=== PATIENT | female | born 1940 | race Caucasian/White ===

== ENCOUNTER 2018-04-10 01:09 | Inpatient (IN) | payer MEDICARE, OTHER ==
[~2018-04-10] VITALS: Ht 162.6 cm; Wt 55.6 kg
--- NOTE | 2018-04-10 01:30 | ED.ADGEN ---
Past History Past Medical History: Anemia, Anxiety, Bipolar, Dementia, Depression, Hypothyroid, Other Adult General Chief Complaint Chief Complaint "..no.. NO....no.no.. leave..." HPI HPI Patient is a 77 year old female from [facility], who presents with no complaints. Pt. denies pain. [facility] staff reports she has had recent change in her behavior. Pt. normally always uncooperative and assaultive towards staff, but recently has been aggressive towards other pt.s. Pt. has extensive medical hx. bipolar disorder, gait disorder, dysphagia, frequent falls , dementia, hypothyroid, vitamin D deficiency, deconditioned, anxiety disorder, osteoporosis, cognitive defects, constipation and aggressive behavior. Patient recently has had increased episodes of cussing , yelling and throwing objects at staff and other patients. Patient has had no recent changes in meds. No specific ill exposures. Patient has been a resident of [facility] since 2017. Review of Systems Review of Systems Pt has no complaints- very poor historian Constitutional: Denies fever or chills [] Eyes: Denies change in visual acuity, redness, or eye pain [] HENT: Denies nasal congestion or sore throat [] Respiratory: Denies cough or shortness of breath [] Cardiovascular: No additional information not addressed in HPI [] GI: Denies abdominal pain, nausea, vomiting, bloody stools or diarrhea [] : Denies dysuria or hematuria [] Musculoskeletal: Denies back pain or joint pain [] Integument: Denies rash or skin lesions [] Neurologic: Denies headache, focal weakness or sensory changes [] Endocrine: Denies polyuria or polydipsia [] All other systems were reviewed and found to be within normal limits, except as documented in this note. Family History Family History Not currently available Current Medications Current Medications See Nursing for PR meds Allergies Allergies NKDA Physical Exam Physical Exam Constitutional: no acute distress, agitated in appearance. [] HENT: Normocephalic, atraumatic, bilateral external ears normal, oropharynx moist, no oral exudates, nose normal. []Poor dentition. Eyes: PERRLA, EOMI, conjunctiva normal, no discharge. [] Neck: Normal range of motion, no tenderness, supple, no stridor. [] Cardiovascular:Heart rate regular rhythm, no murmur [], PMI to Lt. Lungs & Thorax: Bilateral breath sounds equal at apex on auscultation [] Basilar crackles Abdomen: Bowel sounds normal, soft, no tenderness, no masses, no pulsatile masses. [] Distended. Skin: Warm, dry, no erythema, no rash. [] Poor turgor. Back: No tenderness, no CVA tenderness. Kyphosis, scoliosis Extremities: No tenderness, no cyanosis, no clubbing, ROM intact, no edema. [] Arthritic changes. Neurologic: Alert and oriented X 1, move all ext. no gross focal deficits noted as per [facility] staff at beside. [facility] staff at bedside, state this his her baseline for activity and alertness. Psychologic: Affect anxious, judgement obvious limited insight, mood agitated. Current Patient Data Vital Signs Vital Signs Date Time Temp Pulse Resp B/P (MAP) Pulse Ox O2 Delivery O2 Flow Rate FiO2 04/10/18 01:34 91 20 97 Room Air Lab Results Laboratory Tests Test 04/10/18 01:46 04/10/18 01:54 White Blood Count 8.4 x10^3/uL (4.0-11.0) Red Blood Count 2.96 x10^6/uL (3.50-5.40) L Hemoglobin 8.9 g/dL (12.0-15.5) L Hematocrit 27.4 % (36.0-47.0) L Mean Corpuscular Volume 93 fL (79-100) Mean Corpuscular Hemoglobin 30 pg (25-35) Mean Corpuscular Hemoglobin Concent 33 g/dL (31-37) Red Cell Distribution Width 16.9 % (11.5-14.5) H Platelet Count 535 x10^3/uL (140-400) H Neutrophils (%) (Auto) 49 % (31-73) Lymphocytes (%) (Auto) 35 % (24-48) Monocytes (%) (Auto) 11 % (0-9) H Eosinophils (%) (Auto) 4 % (0-3) H Basophils (%) (Auto) 1 % (0-3) Neutrophils # (Auto) 4.1 x10^3uL (1.8-7.7) Lymphocytes # (Auto) 3.0 x10^3/uL (1.0-4.8) Monocytes # (Auto) 0.9 x10^3/uL (0.0-1.1) Eosinophils # (Auto) 0.3 x10^3/uL (0.0-0.7) Basophils # (Auto) 0.1 x10^3/uL (0.0-0.2) Erythrocyte Sedimentation Rate 82 (0-25) H Prothrombin Time 9.6 SEC (9.4-11.4) Prothrombin Time INR 1.0 (0.9-1.1) PTT 21 SEC (23-33) L Sodium Level 145 mmol/L (136-145) Potassium Level 4.1 mmol/L (3.5-5.1) Chloride Level 107 mmol/L (98-107) Carbon Dioxide Level 22 mmol/L (21-32) Anion Gap 16 (6-14) H Blood Urea Nitrogen 33 mg/dL (7-20) H Creatinine 1.2 mg/dL (0.6-1.0) H Estimated GFR (Cockcroft-Gault) 43.3 Glucose Level 138 mg/dL (70-99) H Calcium Level 9.4 mg/dL (8.5-10.1) Magnesium Level 2.3 mg/dL (1.8-2.4) Total Bilirubin 0.1 mg/dL (0.2-1.0) L Direct Bilirubin < 0.1 mg/dL (0.0-0.2) Aspartate Amino Transferase (AST) 25 U/L (15-37) Alanine Aminotransferase (ALT) 20 U/L (14-59) Alkaline Phosphatase 102 U/L (46-116) Creatine Kinase 51 U/L (26-192) Troponin I Quantitative < 0.017 ng/mL (0-0.055) C-Reactive Protein 6.7 mg/L (0-3.3) H PC-Emn-Q-Type Natriuretic Peptide 329 pg/mL (0-449) Total Protein 7.3 g/dL (6.4-8.2) Albumin 2.9 g/dL (3.4-5.0) L Lipase 523 U/L (73-393) H Urine Collection Type U cath Urine Color Yellow Urine Clarity Clear Urine pH 5.0 Urine Specific Kermit 1.025 Urine Protein Neg (NEG-TRACE) Urine Glucose (UA) Neg mg/dL (NEG) Urine Ketones (Stick) Neg mg/dL (NEG) Urine Blood Neg (NEG) Urine Nitrite Neg (NEG) Urine Bilirubin Neg (NEG) Urine Urobilinogen Dipstick 0.2 mg/dL (0.2 mg/dL) Urine Leukocyte Esterase Neg (NEG) Urine RBC 0 /HPF (0-2) Urine WBC Occ /HPF (0-4) Urine Squamous Epithelial Cells None /LPF Urine Bacteria 0 /HPF (0-FEW) Urine Opiates Screen Neg (NEG) Urine Methadone Screen Neg (NEG) Urine Barbiturates Neg (NEG) Urine Phencyclidine Screen Neg (NEG) Urine Amphetamine/Methamphetamine Neg (NEG) Urine Benzodiazepines Screen Neg (NEG) Urine Cocaine Screen Neg (NEG) Urine Cannabinoids Screen Neg (NEG) Urine Ethyl Alcohol (NEG) EKG EKG My interpretation EKG shows a sinus rhythm at 88 bpm. There is leftward axis. Some nonspecific T changes. No findings acute STEMI with contralateral changes.[ ] Radiology/Procedures Radiology/Procedures I interpretation of chest x-ray shows degenerative joint changes. Chronic pulmonary zydvzex-qoxrcfqze-jrld changes No free air under diaphragm. Increased stool in colon.[] My interpretation of CT head shows no shift, mass, edema, bleed, or fracture. Does have obvious volume loss and white matter disease changes. 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 CT of neck shows degenerative joint changes but no obvious fracture. See formal report when available. Course & Med Decision Making Course & Med Decision Making Pertinent Labs and Imaging studies reviewed. (See chart for details) Patient admitted on the [facility] Dr. Estrada. Consult Dr. Porras- for medical issues. [] Final Impression Final Impression 1. Mental Status Change[] 2. Aggressive Behavior 3. Hx. Bipolar 4. Hx. Dementia 5. Hx. Anxiety Disorder 6. Anemia 8.9 Hgb 7. DM 138 8. Elevated BUN/Crea 33/1.2 9. Malnutrition Alb. 2.9 10. Elevated Lipase 523 11. Constipation Dragon Disclaimer Dragon Disclaimer This electronic medical record was generated, in whole or in part, using a voice recognition dictation system. JARED CARL MD Apr 10, 2018 01:30
[2018-04-10 02:31] LABS: BASO # 0.1 x10^3/uL (0.0-0.2); BASO % 1 % (0-3); EOS # 0.3 x10^3/uL (0.0-0.7); EOS % 4 % (0-3); HEMATOCRIT 27.4 % (36.0-47.0); HEMOGLOBIN 8.9 g/dL (12.0-15.5); LYMPH % 35 % (24-48); MEAN CORPUSCULAR HEMOGLOBIN 30 pg (25-35); MEAN CORPUSCULAR HGB CONC 33 g/dL (31-37); MEAN CORPUSCULAR VOLUME 93 fL (79-100); MONO # 0.9 x10^3/uL (0.0-1.1); MONO % 11 % (0-9); NEUT # 4.1 x10^3uL (1.8-7.7); NEUT % 49 % (31-73); PLATELET COUNT 535 x10^3/uL (140-400); RED BLOOD COUNT 2.96 x10^6/uL (3.50-5.40); RED CELL DISTRIBUTION WIDTH 16.9 % (11.5-14.5); WHITE BLOOD COUNT 8.4 x10^3/uL (4.0-11.0)
[2018-04-10 02:49] LABS: BACTERIA,URINE 0 /HPF (0-FEW); BILIRUBIN,URINE NEG (NEG); CLARITY,URINE CLEAR; COLOR,URINE YELLOW; GLUCOSE,URINE NEG (NEG); NITRITE,URINE NEG (NEG); RBC,URINE 0 /HPF (0-2); UROBILINOGEN,URINE 0.2 mg/dL (0.2 mg/dL); WBC,URINE OCC /HPF (0-4)
[2018-04-10 02:57] LABS: BARBITURATES NEG (NEG); BENZODIAZEPINES NEG (NEG); CANNABINOIDS NEG (NEG); COCAINE NEG (NEG); METHADONE NEG (NEG); OPIATES NEG (NEG); PHENCYCLIDINE NEG (NEG)
[2018-04-10 03:04] LABS: AMPHETAMINE/METHAMPHETAMINE NEG (NEG)
[2018-04-10 03:26] LABS: SEDIMENTATION RATE 82 (0-25)
[2018-04-10 03:28] LABS: ALBUMIN 2.9 g/dL (3.4-5.0); ALK PHOS 102 U/L (46-116); ALT (SGPT) 20 U/L (14-59); ANION GAP 16 (6-14); AST (SGOT) 25 U/L (15-37); BLOOD UREA NITROGEN 33 mg/dL (7-20); C REACTIVE PROTEIN 6.7 mg/L (0-3.3); CALCIUM 9.4 mg/dL (8.5-10.1); CARBON DIOXIDE 22 mmol/L (21-32); CHLORIDE 107 mmol/L (98-107); CREATININE 1.2 mg/dL (0.6-1.0); GFR 43.3; GLUCOSE 138 mg/dL (70-99); LIPASE 523 U/L (73-393); MAGNESIUM 2.3 mg/dL (1.8-2.4); POTASSIUM 4.1 mmol/L (3.5-5.1); SODIUM 145 mmol/L (136-145); TOTAL BILIRUBIN 0.1 mg/dL (0.2-1.0); TOTAL PROTEIN 7.3 g/dL (6.4-8.2)
[2018-04-10 03:30] LABS: DIRECT BILIRUBIN < 0.1 mg/dL (0.0-0.2)
--- NOTE | 2018-04-10 03:44 | RAD ---
Examination: CT HEAD AND CERVICAL SPINE WO History: Weakness, altered mental status, hx of falls Comparison/Correlation: None Findings: Axial images of the head and cervical spine were obtained without contrast. Sagittal and coronal reformatted images of the cervical spine were provided. Ventriculomegaly presumably due to volume loss is present. Advanced atrophy and chronic ischemic changes white matter is present. Old right basal ganglier lacunar infarct. Old right frontal lobe infarct is present. No depressed skull fracture. A right frontal bone exostosis noted vertex is present anteriorly. It is benign in appearance. Alignment of the cervical spine is unremarkable. Vertebral body heights are adequate. C4-5 disc space narrowing is moderate. Endplate spurring at C3-C4 and C4-C5 is present with mild bony encroachment on the neural foramina mainly at C3-4. No cervical spine fracture or bony destruction identified. Spinal canal is unremarkable. Soft tissues are unremarkable. Centrilobular emphysematous involvement of the partially visualized upper lung mario noted. Impression: No fracture. No intracranial hemorrhage. Electronically signed by: Tre Shah MD (04/10/2018 3:41 AM) [id number]
[2018-04-10] MEDS ORDERED: MAGNESIUM HYDROXIDE 2,400 MG/30 ML ORAL.SUSP. PO ONE (04:00)
[2018-04-10] MEDS ORDERED: METHYL SALICYLATE/MENTHOL TOPICAL OINTMENT 29GM TUBE. TP PRN (04:15)
[2018-04-10] MEDS ORDERED: MAG HYDROX/AL HYDROX/SIMETH 30 ML ORAL.SUSP PO PRN (04:15)
[2018-04-10] MEDS ORDERED: MAGNESIUM HYDROXIDE 2,400 MG/30 ML ORAL.SUSP. PO PRN (04:15)
[2018-04-10] MEDS ORDERED: ACETAMINOPHEN 325 MG TABLET PO PRN ×2 (04:15→05:00)
[2018-04-10] MEDS ORDERED: CALC-157 PO (04:37)
[2018-04-10] MEDS ORDERED: OLAN10TA9 PO (04:37)
[2018-04-10] MEDS ORDERED: DULO30CA2 PO (04:37)
[2018-04-10] MEDS ORDERED: DICL100G18 TP (04:37)
[2018-04-10] MEDS ORDERED: OLAN5TAB9 PO (04:37)
[2018-04-10] MEDS ORDERED: ACET325T9 PO ×2 (04:37)
[2018-04-10] MEDS ORDERED: ASCO500T2 PO (04:37)
[2018-04-10] MEDS ORDERED: MEMA10TA PO (04:37)
[2018-04-10] MEDS ORDERED: ASPI325T11 PO (04:37)
[2018-04-10] MEDS ORDERED: LACT10SO PO (04:37)
[2018-04-10] MEDS ORDERED: DULO60CA6 PO (04:37)
[2018-04-10] MEDS ORDERED: LEVO100T5 PO (04:37)
[2018-04-10] MEDS ORDERED: RIVA1PAT22 TD (04:37)
[2018-04-10] MEDS ORDERED: LACTULOSE 20 GM/30 ML SOLUTION. PO PRN (05:00)
[2018-04-10] MEDS ORDERED: DICLOFENAC SODIUM 1% TOPICAL GEL 100GM TUBE. TP PRN (05:00)
[2018-04-10] MEDS: LEVOTHYROXINE 100 MCG TABLET PO SCH (05:41)
--- NOTE | 2018-04-10 07:50 | RAD ---
Indication:Weakness, altered mental status, hx of falls TECHNIQUE:Portable AP chest X-ray COMPARISON:None FINDINGS: Patient is rotated to the right side limiting optimal evaluation. Heart is normal in size. Lungs are clear. No pneumothorax or pleural effusion. Visualized bony thorax is within normal limits. IMPRESSION: No acute pulmonary process. Electronically signed by: Andrea Rodriguez DO (04/10/2018 7:46 AM) [facility]
[2018-04-10] MEDS: CALCIUM CARB/VIT D3 500/200 TABLET PO SCH ×2 (08:06→17:47)
[2018-04-10] MEDS: ASPIRIN ENTERIC COATED 325 MG TABLET.DR. PO SCH (08:06)
[2018-04-10] MEDS: MEMANTINE 10 MG TABLET. PO SCH ×2 (08:09→20:01)
[2018-04-10] MEDS: ACETAMINOPHEN 325 MG TABLET PO SCH ×3 (08:09→20:01)
[2018-04-10] MEDS: RIVASTIGMINE 4.6MG PATCH. TD SCH (08:09)
[2018-04-10] MEDS: ASCORBIC ACID 500 MG TABLET PO SCH ×2 (08:09→20:01)
[2018-04-10] MEDS: OLANZapine 5 MG TABLET PO SCH (08:09)
[2018-04-10] MEDS: DULoxetine HCL 60 MG CAPSULE.DR PO SCH (08:09)
--- NOTE | 2018-04-10 09:34 | RAD ---
ACUTE ABDOMEN SERIES History: abd pain, elevated lipase. Comparison: Prior chest x-ray of 04/10/2018. No previous abdomen radiograph. Cardiac silhouette is not enlarged. No airspace consolidation. There are prominent interstitial markings throughout both lungs, appears slightly greater than on prior study but there is a difference in patient positioning. No pneumothorax. No pleural effusion. Skeletal structures are grossly intact. Abdominal detail is limited due to technique. There is no gross evidence of small bowel distention to suggest obstruction. [id number] stool in the colon and rectum. Skeletal structures are grossly intact. IMPRESSION: 1. Prominent interstitial opacities in the chest, most likely chronic fibrosis, mild acute interstitial infiltrate is not excludable. 2. Limited detail on the abdominal images, but no evidence of obstructive bowel gas pattern. Electronically signed by: Raj Robles MD (04/10/2018 9:31 AM) [facility]
[2018-04-10 10:59] VITALS: BP 154/82
--- NOTE | 2018-04-10 13:22 | RAD ---
Examination: Ultrasound abdomen complete HISTORY: History of elevated lipase COMPARISON: None available. Findings: The pancreas is not well-visualized. The pancreatic duct measures 1.8 mm in diameter. The spleen is poorly visualized. The aorta and IVC are poorly visualized due to bowel gas and as patient could not hold breath during the exam. Few gallstones identified within the gallbladder. The common bile duct measures 3.6 mm in diameter. The liver length measures 14.5 cm. The right kidney measures 8.3 cm in length. Few cysts identified in the right kidney with the largest measuring 1.7 cm The left kidney measures 9.2 cm in length. 1.2 cm cyst identified in the left kidney. IMPRESSION: 1. Cholelithiasis 2. Examination is limited as patient could not hold her breath during the scan and due to bowel gas. 3. Bilateral renal cysts. Electronically signed by: Nik Blake MD (04/10/2018 1:18 PM) [facility]
[2018-04-10 15:57] VITALS: BP 121/72
[2018-04-10] MEDS: CHOLECALCIFEROL (VITAMIN D3) 50,000 UNIT CAPSULE PO SCH (17:47)
[2018-04-10] MEDS: DULoxetine HCL 30 MG CAPSULE.DR PO SCH (20:02)
[2018-04-10] MEDS: OLANZapine 10 MG TABLET PO SCH (20:03)
--- NOTE | 2018-04-10 21:11 | CONS ---
DATE OF CONSULTATION: 04/10/2018 REASON FOR CONSULTATION: Medical management. HISTORY OF PRESENT ILLNESS: The patient is a 77-year-old female patient, a resident at [facility], who was admitted on account of scratching resident and drawing blood, yelling, hallucinating, seeing babies and children. She has been having increased agitation, has been known to throw dishes, all this in a background of bipolar disorder and dementia. She was admitted to this unit for inpatient psychiatric stabilization. PAST MEDICAL HISTORY: Significant for hypothyroidism, vitamin D deficiency, anemia as well as osteoporosis and chronic back syndrome. She has a history of recurrent falls, most recent one was last week. PAST PSYCHIATRIC HISTORY: Significant for bipolar disorder with major depressive disorder, dementia, behavioral disorder, anxiety. PAST SURGICAL HISTORY: Unremarkable. ALLERGIES: She has no known drug allergies. MEDICATIONS: She is currently on following medications: She is on rivastigmine for Exelon 4.6 mg patch transdermal daily, aspirin 325 mg once a day, diclofenac sodium for Voltaren gel 4 grams topically twice a day, Tylenol 650 mg every 4 hours, Tylenol 650 mg 3 times a day, duloxetine 30 mg at bedtime, duloxetine 60 mg at bedtime, olanzapine 10 mg at bedtime, olanzapine 5 mg p.o. daily, Namenda 10 mg p.o. b.i.d., lactulose 30 mL p.o. q. 12 hourly, calcium carbonate with vitamin D3 one tablet twice a day, levothyroxine sodium 100 mcg p.o. daily, ascorbic acid 500 mg twice a day. FAMILY HISTORY: Unremarkable. SOCIAL HISTORY: She is a resident at [facility]. She apparently does not smoke, drink alcohol or use any recreational drugs. She is on a pureed diet. She ambulates with a 1-2 person assist. PHYSICAL EXAMINATION: GENERAL: When I examined her, she was resting slightly propped up in bed, in no apparent respiratory distress. She was somewhat pale, but no jaundice, cyanosis, or thyromegaly. No jugular venous distension. No limb edema. VITAL SIGNS: Her heart rate was 101, blood pressure was 154/82, temperature was 97.6, respiratory rate was 20, and oxygen saturation was 100% on room air. HEAD, EYES, EARS, NOSE AND THROAT: Showed normocephalic, atraumatic. NECK: Supple. HEART: Showed normal first and second heart sounds with no gallop, rub or murmur. CHEST: Clear to auscultation. No crepitation or rhonchi. ABDOMEN: Distended, soft, nontender. No guarding or rigidity. No organomegaly. Hernial orifice intact. Bowel sounds normal. NEUROLOGIC: She is demented, mostly nonverbal. She does yell, scream, but all her cranial nerves are intact. EXTREMITIES: She moves her extremities to much greater extent than lower extremities. She is mostly bedbound, chair bound. She has a Radha lift. She can walk with 2-person assist. LABORATORY DATA: Her lab work showed that her white cell count was 8400, hemoglobin 8.9, hematocrit 27, MCV 93 and platelet count 535,000 with normal manual differential. Her sedimentation rate was high at 82. Retic count was 3.8. Her chemistry showed serum sodium 145, potassium 4.1, chloride 107, bicarbonate 22, anion gap of 16, BUN 33, creatinine 1.2. Estimated GFR was 43 mL per minute. Her glucose 138, calcium was 9.4, magnesium 2.3. Serum iron, TIBC and iron saturation was consistent with iron deficiency anemia. Her total bilirubin, AST, ALT, alkaline phosphatase were normal. Her C-reactive protein was 6.7. Beta natriuretic peptide was 329. Total protein was 7.3, albumin was 2.9. Serum lipase was high at 523. Her vitamin B12 was 800 and 25-hydroxyvitamin D was 17.9. Her TSH was high at 6.001. Her prothrombin time was 9.6, INR of 1, aPTT was 21. Urinalysis was essentially unremarkable. Toxic screen was negative. Her treponema pallidum antibodies were nonreactive. She did have a CT scan of the head and cervical spine, which was unremarkable. Her chest x-ray showed no acute pulmonary process. Her ultrasound of the abdomen showed that the pancreas is not well-visualized. Pancreatic duct measures 1.8 mm in diameter. The spleen is poorly visualized. The aorta and IVC are poorly visualized due to bowel gas as the patient could not hold breath during the exam. Few gallstones identified in the gallbladder, common bile duct measures 3.6 mm in diameter. The liver length measures 14.5. The right kidney measures 8.3 cm in length. Few cysts identified in the right kidney with the largest measuring 1.7. The left kidney measures 9.2 cm in length, 1.2 cm cyst identified in the left kidney. Her acute abdomen series showed interstitial opacity in the chest, most likely chronic fibrosis, mild acute interstitial infiltrate, not excluded. IMPRESSION: So, in summary, this is a 77-year-old female patient, who is a resident at [facility], who was admitted on account of scratching a resident and drawing blood, yelling, hallucinating, seeing babies and children. She has increased agitation, has been known to throw dishes, all this in a background of bipolar disorder with dementia. Medically, she seemed to have anemia that is normochromic normocytic with reactive thrombocytosis. Her serum iron was low, TIBC was high and iron saturation was low consistent with iron deficiency anemia. Her TSH was high. She has also lipase that was elevated at 523. She has vitamin D deficiency. PLAN: My plan is to start her on iron replacement, start her on 25-hydroxy vitamin D replacement. I will check her T3, T4, free T4 to make sure that the patient is compensated hypothyroidism. I will repeat also her lipase as she seemed to have pancreatitis. Thank you, Dr. Estrada, for allowing me to participate in the care of this patient. QUANG GUERRERO MD DR: HUMBERTO/mateo JOB#: [id number] / [id number]
--- NOTE | 2018-04-10 22:10 | PSYEV ---
DATE OF SERVICE: 04/10/2018 REASON FOR ADMISSION: This 77-year-old female was [facility] to [facility]. He was transferred from [address] [place] [address] at [facility]. The patient apparently was presented here with combative behaviors scratching her wrist and caused the skin tear, also constantly yelling, hallucinating seeing babies and children. The patient has been a resident at the senior [facility]. The patient currently not able to give much information, withdrawn, refusing to talk. HISTORY OF PRESENT ILLNESS: Staff reports since admission, she has been irritable, chung, delusional, paranoid, not interacting with the staff and also tends to pace a lot and also apparently she did not sleep well last night. The patient apparently has a diagnosis of bipolar disorder, also dementia. The patient has been having problems at the senior care, being delusional, and also resisted to care. The patient is also exhibiting psychotic behavior, which is not controlled with the treatment there. The patient also had falls recently. The patient also has history of chronic pain. The patient also known to throw dishes. PAST MEDICAL HISTORY: The patient has a history of hypothyroidism, vitamin D deficiency, osteoporosis, chronic pain, history of falls. The patient has no known allergies. The patient has been observed being confused since being hospitalized. CURRENT MEDICATIONS: Include olanzapine 10 mg at night, Cymbalta 30 mg at night, rivastigmine 13.3 patch daily. He is also on olanzapine 5 mg daily, Namenda 10 mg b.i.d., aspirin 325 mg daily, levothyroxine 100 mcg daily. The patient is also on Cymbalta 60 mg daily for a total dose of 90 mg daily. The patient's lab reviewed. The patient's RBC was 2.96, hemoglobin 8.9, platelet count 535, BUN 33, creatinine 1.2, glucose 138. C-reactive protein 6.7. Lipase 523. The patient had acute abdominal series which showed prominent interstitial opacities in the chest, most likely chronic fibrosis. Mild acute interstitial infiltrate is not excludable. Ultrasound impression, cholelithiasis, bilateral renal cysts. CT scan of the head was within normal limits. No intracranial hemorrhage. PSYCHOSOCIAL HISTORY: The patient is unable to give much information and we will try to get information from the family. No history of alcohol or substance abuse in the past. FAMILY HISTORY: None available. MENTAL STATUS EXAMINATION: The patient appeared to be of her stated age, casually dressed, withdrawn and poor eye contact, refusing to talk. Her behavior remained inappropriate. She is isolating herself, withdrawn from everybody, not wanting to talk to anyone. The patient is also confused and pacing. She is also a fall risk. Her speech is monotone, decreased rate and rhythm. Her affect and mood showed she is confused, delusional, paranoid, and not able to hold a conversation. The patient's mental status not tested. Apparently, she is very confused, disoriented to surroundings. The patient's judgment is impaired. Insight limited. STRENGTHS: Fairly in good health despite of recent problems. WEAKNESSES: The patient is confused, significant cognitive deficits, also delusional and paranoid and behavior problems. ADMITTING DIAGNOSES: AXIS I: 1. Dementia, most likely Alzheimer's versus vascular with behavior problems and psychosis. 2. Generalized anxiety disorder. AXIS II: None. AXIS III: Hypothyroidism, vitamin D deficiency, osteoporosis, chronic pain, history of falls. INITIAL TREATMENT PLAN: The patient will be increasing all the activities including individual therapy, group therapy, activity therapy. The patient will continue on the current medications listed above. The patient will continue to monitor vital signs and also repeat the lab work as needed because of the elevated BUN and creatinine. LENGTH OF STAY: 7-10 days. OMAR OCASIO MD DR: LEYLA/mateo JOB#: [id number] / [id number]
--- NOTE | 2018-04-10 23:05 | EKG ---
[address] [address] Test Date: 2018-04-10 Test Time: 02:07:47 Pat Name: ALBAN CUNNINGHAM Department: Room: [address] [place] [address] Gender: F Seismic Prospecting Observer: : 1940 Requested By: JARED CARL Order Number: [id number] Reading MD: Mike Gutierrez Measurements Intervals Francitas Rate: 88 P: 32 RI: 152 QRS: -7 QRSD: 70 T: -170 QT: 354 QTc: 432 Interpretive Statements SINUS RHYTHM LEFTWARD AXIS T ABNORMALITY IN ANTEROLATERAL LEADS INFEROLATERAL LEADS ABNORMAL ECG Electronically Signed On 04-14-2018 10:27:37 REFRIGERATION INSULATOR by Mike Gutierrez
[2018-04-11 05:08] VITALS: BP 117/54
[2018-04-11] MEDS: LEVOTHYROXINE 100 MCG TABLET PO SCH (05:24)
[2018-04-11] MEDS: ASCORBIC ACID 500 MG TABLET PO SCH ×2 (08:00→19:36)
[2018-04-11] MEDS: ACETAMINOPHEN 325 MG TABLET PO SCH ×3 (08:00→19:36)
[2018-04-11] MEDS: RIVASTIGMINE 4.6MG PATCH. TD SCH (08:00)
[2018-04-11] MEDS: OLANZapine 5 MG TABLET PO SCH (08:00)
[2018-04-11] MEDS: ASPIRIN ENTERIC COATED 325 MG TABLET.DR. PO SCH (08:00)
[2018-04-11] MEDS: MEMANTINE 10 MG TABLET. PO SCH ×2 (08:01→19:36)
[2018-04-11] MEDS: CALCIUM CARB/VIT D3 500/200 TABLET PO SCH ×2 (08:01→14:34)
[2018-04-11] MEDS: DULoxetine HCL 60 MG CAPSULE.DR PO SCH (08:01)
[2018-04-11 09:56] LABS: BASO # 0.1 x10^3/uL (0.0-0.2); BASO % 1 % (0-3); EOS # 0.3 x10^3/uL (0.0-0.7); EOS % 4 % (0-3); HEMATOCRIT 26.8 % (36.0-47.0); HEMOGLOBIN 8.3 g/dL (12.0-15.5); LYMPH # 2.7 x10^3/uL (1.0-4.8); LYMPH % 37 % (24-48); MEAN CORPUSCULAR HEMOGLOBIN 29 pg (25-35); MEAN CORPUSCULAR HGB CONC 31 g/dL (31-37); MEAN CORPUSCULAR VOLUME 95 fL (79-100); MONO # 0.5 x10^3/uL (0.0-1.1); MONO % 7 % (0-9); NEUT # 3.6 x10^3uL (1.8-7.7); NEUT % 51 % (31-73); PLATELET COUNT 476 x10^3/uL (140-400); RED BLOOD COUNT 2.83 x10^6/uL (3.50-5.40); RED CELL DISTRIBUTION WIDTH 16.8 % (11.5-14.5); WHITE BLOOD COUNT 7.1 x10^3/uL (4.0-11.0)
[2018-04-11 10:13] LABS: ALBUMIN 2.7 g/dL (3.4-5.0); ALBUMIN/GLOBULIN RATIO 0.6 (1.0-1.7); CALCIUM 9.2 mg/dL (8.5-10.1); GFR 53.5; TOTAL BILIRUBIN 0.2 mg/dL (0.2-1.0)
[2018-04-11 15:55] VITALS: BP 138/82
[2018-04-11] MEDS: DULoxetine HCL 30 MG CAPSULE.DR PO SCH (19:36)
[2018-04-11] MEDS: OLANZapine 10 MG TABLET PO SCH (19:36)
--- NOTE | 2018-04-11 22:16 | PN ---
DATE: 04/11/2018 SUBJECTIVE: The patient was seen today, met with the staff, chart reviewed. The patient continues to be withdrawn, anxious, periods of agitation. The patient still resistive to care, becomes combative with the staff. OBSERVATION: VITAL SIGNS: Temperature 97, blood pressure 138/82, pulse 72, respirations 18, O2 sat 96%. The patient's sleep is fair. Appetite decreased. MEDICATIONS: Reviewed. Currently on olanzapine 10 mg at night, Cymbalta 30 mg at night, Exelon patch 13.3 mg daily. She is also on olanzapine 5 mg daily, Namenda 10 mg b.i.d., Cymbalta 60 mg daily. The patient has not presented with any major behavior problems, known physical problems. The patient still unsteady, is a fall risk. ASSESSMENT: 1. Dementia, most likely Alzheimer versus vascular with behavior problems and psychosis. 2. Generalized anxiety disorder. PLAN: To continue with the treatment. OMAR OCASIO MD DR: LEYLA/mateo JOB#: [id number] / [id number]
[2018-04-12 05:39] VITALS: BP 132/77
[2018-04-12] MEDS: LEVOTHYROXINE 100 MCG TABLET PO SCH (05:51)
[2018-04-12] MEDS: ASPIRIN ENTERIC COATED 325 MG TABLET.DR. PO SCH (07:54)
[2018-04-12] MEDS: ACETAMINOPHEN 325 MG TABLET PO SCH ×3 (07:54→21:00)
[2018-04-12] MEDS: RIVASTIGMINE 4.6MG PATCH. TD SCH (07:54)
[2018-04-12] MEDS: CALCIUM CARB/VIT D3 500/200 TABLET PO SCH ×2 (07:54→14:12)
[2018-04-12] MEDS: ASCORBIC ACID 500 MG TABLET PO SCH ×2 (07:55→21:00)
[2018-04-12] MEDS: OLANZapine 5 MG TABLET PO SCH (07:55)
[2018-04-12] MEDS: DULoxetine HCL 60 MG CAPSULE.DR PO SCH (07:55)
[2018-04-12] MEDS: MEMANTINE 10 MG TABLET. PO SCH ×2 (07:55→21:00)
--- NOTE | 2018-04-12 14:17 | PN ---
DATE: 04/12/2018 SUBJECTIVE: The patient was seen today, met with the staff, chart reviewed. The patient continues to be anxious, withdrawn, periods of agitation. The patient also resistive to care. The patient is mostly noncommunicative. The patient is totally dependent on the staff for ADLs. OBSERVATION: VITAL SIGNS: Temperature 98.1, blood pressure 132/77, pulse 70, respiration 14, O2 sat 98%. Slept about 7 hours last night. The patient's lab reviewed. MEDICATIONS: Reviewed. She is currently on olanzapine 10 mg at night, Cymbalta 30 mg at night, Exelon patch 13.3 mg daily, also olanzapine 5 mg daily, Namenda 10 mg b.i.d. and Cymbalta 60 mg daily. The patient is not presenting with any major side effects from the medications. ASSESSMENT: 1. Dementia, most likely Alzheimer versus vascular with behavior problems and psychosis. 2. Generalized anxiety disorder. PLAN: To continue with the treatment. OMAR OCASIO MD DR: LEYLA/mateo JOB#: [id number] / [id number]
[2018-04-12 16:53] VITALS: BP 119/73
[2018-04-12] MEDS: OLANZapine 10 MG TABLET PO SCH (21:00)
[2018-04-12] MEDS: DULoxetine HCL 30 MG CAPSULE.DR PO SCH (21:00)
[2018-04-13] MEDS: LEVOTHYROXINE 100 MCG TABLET PO SCH (04:58)
[2018-04-13 06:04] VITALS: BP 126/60
[2018-04-13] MEDS: DULoxetine HCL 60 MG CAPSULE.DR PO SCH (09:13)
[2018-04-13] MEDS: ACETAMINOPHEN 325 MG TABLET PO SCH ×4 (09:13→20:08)
[2018-04-13] MEDS: MEMANTINE 10 MG TABLET. PO SCH ×2 (09:13→20:08)
[2018-04-13] MEDS: OLANZapine 5 MG TABLET PO SCH (09:13)
[2018-04-13] MEDS: RIVASTIGMINE 4.6MG PATCH. TD SCH (09:13)
[2018-04-13] MEDS: ASCORBIC ACID 500 MG TABLET PO SCH ×2 (09:13→20:08)
[2018-04-13] MEDS: ASPIRIN ENTERIC COATED 325 MG TABLET.DR. PO SCH (09:14)
[2018-04-13] MEDS: CALCIUM CARB/VIT D3 500/200 TABLET PO SCH ×2 (09:14→17:24)
[2018-04-13 15:49] VITALS: BP 114/50
--- NOTE | 2018-04-13 19:48 | PDOC ---
Exam Note: Adriano Note: Please also refer to the separate dictated note~for this date of service dictated separately.~Patient seen individually. Discussed the patient with Nursing staff reviewed the chart.~Reviewed interim history and current functioning. Reviewed vital signs,~Labs/ Radiology~and current medications noted below. Continue current treatment with the changes noted in the dictated addendum note Assessment: Vital Signs: Vital Signs Date Time Temp Pulse Resp B/P (MAP) Pulse Ox O2 Delivery O2 Flow Rate FiO2 04/13/18 15:49 98.1 84 20 114/50 (71) 93 04/12/18 05:39 Room Air I&O Intake and Output 04/13/18 07:00 Intake Total 580 ml Balance 580 ml Intake Oral 580 ml # Bowel Movements 2 Current Medications: Meds: Current Medications Magnesium Hydroxide (Milk Of Magnesia) 2,400 mg 1X ONCE PO ; Start 04/10/18 at 04:00; Stop 04/10/18 at 05:06; Status DC Acetaminophen (Tylenol) 650 mg PRN Q6HRS PRN PO PAIN / TEMP; Start 04/10/18 at 04:15; Status UNV Multi-Ingredient Ointment (Analgesic [place]) 1 adriana PRN QID PRN TP MUSCLE PAIN; Start 04/10/18 at 04:15 Al Hydroxide/Mg Hydroxide (Mylanta Plus Xs) 15 ml PRN AFTMEALHC PRN PO DYSPEPSIA; Start 04/10/18 at 04:15 Magnesium Hydroxide (Milk Of Magnesia) 2,400 mg PRN QHS PRN PO CONSTIPATION; Start 04/10/18 at 04:15 Acetaminophen (Tylenol) 650 mg PRN Q4HRS PRN PO PAIN / TEMP; Start 04/10/18 at 05:00 Acetaminophen (Tylenol) 650 mg TID PO Last administered on 04/13/18at 09:13; Start 04/10/18 at 09:00 Ascorbic Acid (Vitamin C) 500 mg BID PO Last administered on 04/13/18at 09:13; Start 04/10/18 at 09:00 Aspirin (Aspirin Enteric Coated) 325 mg DAILYWBKFT PO Last administered on at 09:14; Start 04/10/18 at 08:00 Calcium/Vitamin D (Oscal D 500mg/ 200uts) 1 tab BIDWMEALS PO Last administered on 04/13/18at 17:24; Start 04/10/18 at 08:00 Diclofenac Sodium (Voltaren) 4 adriana PRN BID PRN TP PAIN; Start 04/10/18 at 05: 00 Levothyroxine Sodium (Synthroid) 100 mcg DAILY06 PO Last administered on at 04:58; Start 04/10/18 at 06:00 Lactulose (Lactulose) 20 gm PRN Q12HR PRN PO CONSTIPATION; Start 04/10/18 at 05:00 Duloxetine HCl (Cymbalta) 30 mg QHS PO Last administered on 04/12/18at 21:00; Start 04/10/18 at 21:00 Duloxetine HCl (Cymbalta) 60 mg DAILY PO Last administered on 04/13/18at 09:13 ; Start 04/10/18 at 09:00 Memantine (Namenda) 10 mg BID PO Last administered on 04/13/18at 09:13; Start 04/10/18 at 09:00 Olanzapine (ZyPREXA) 5 mg DAILY PO Last administered on 04/13/18at 09:13; Start 04/10/18 at 09:00 Olanzapine (ZyPREXA) 10 mg QHS PO Last administered on 04/12/18at 21:00; Start 04/10/18 at 21:00 Rivastigmine (Exelon) 1 patch DAILY TD Last administered on 04/13/18at 09:13; Start 04/10/18 at 09:00 Vitamin D (Vitamin D3) 50,000 unit WEEKLY PO Last administered on 04/10/18at 17 :47; Start 04/10/18 at 16:00 Active Scripts Active Reported Voltaren (Diclofenac Sodium) 100 Gm Gel..gram. 4 Gm TP PRN BID PRN Vitamin C (Ascorbic Acid) 500 Mg Tablet 500 Mg PO BID Tylenol (Acetaminophen) 325 Mg Tablet 650 Mg PO TID EXELON 4.6mg/24hr (Rivastigmine) 1 Each Patch.td24 1 Patch TD DAILY Olanzapine 5 Mg Tablet 5 Mg PO DAILY Olanzapine 10 Mg Tablet 10 Mg PO QHS Namenda (Memantine Hcl) 10 Mg Tablet 10 Mg PO BID Levothyroxine Sodium 100 Mcg Tablet 100 Mcg PO DAILYAC Lactulose 10 Gm/15 Ml Solution 20 Gm PO PRN Q12HR PRN Cymbalta (Duloxetine Hcl) 60 Mg Capsule. 60 Mg PO DAILY Cymbalta (Duloxetine Hcl) 30 Mg Capsule. 30 Mg PO QHS Calcium 500 + Vit D 200 Tablet (Calcium Carbonate/Vitamin D3) 1 Each Tablet 1 Tab PO BID Aspirin Ec (Aspirin) 325 Mg Tablet. 325 Mg PO DAILY Tylenol (Acetaminophen) 325 Mg Tablet 650 Mg PO PRN Q4HRS PRN I have reviewed the current psychotropics carefully including drug interactions. Risk benefit ratio favors no change other than as noted in my dictated progress note. Diagnosis: Problems: (1) Mental status change resolved AUGIE SANCHEZ MD Apr 13, 2018 19:48
[2018-04-13] MEDS: DULoxetine HCL 30 MG CAPSULE.DR PO SCH (20:08)
[2018-04-13] MEDS: OLANZapine 10 MG TABLET PO SCH (20:08)
[2018-04-14 02:09] LABS: HEMOGLOBIN A1C 4.8 % (4.8-5.6)
[2018-04-14] MEDS: LEVOTHYROXINE 100 MCG TABLET PO SCH (04:59)
[2018-04-14 06:15] VITALS: BP 125/75
[2018-04-14] MEDS: ASCORBIC ACID 500 MG TABLET PO SCH ×2 (08:10→20:34)
[2018-04-14] MEDS: CALCIUM CARB/VIT D3 500/200 TABLET PO SCH ×2 (08:10→16:49)
[2018-04-14] MEDS: OLANZapine 5 MG TABLET PO SCH (08:10)
[2018-04-14] MEDS: ACETAMINOPHEN 325 MG TABLET PO SCH ×4 (08:10→20:34)
[2018-04-14] MEDS: MEMANTINE 10 MG TABLET. PO SCH ×2 (08:10→20:34)
[2018-04-14] MEDS: ASPIRIN ENTERIC COATED 325 MG TABLET.DR. PO SCH (08:10)
[2018-04-14] MEDS: DULoxetine HCL 60 MG CAPSULE.DR PO SCH (08:10)
[2018-04-14] MEDS: RIVASTIGMINE 4.6MG PATCH. TD SCH (08:11)
[2018-04-14 16:10] VITALS: BP 128/69
--- NOTE | 2018-04-14 19:13 | PDOC ---
Exam Note: Adriano Note: Please also refer to the separate dictated note~for this date of service dictated separately.~Patient seen individually. Discussed the patient with Nursing staff reviewed the chart.~Reviewed interim history and current functioning. Reviewed vital signs,~Labs/ Radiology~and current medications noted below. Continue current treatment with the changes noted in the dictated addendum note Assessment: Vital Signs: Vital Signs Date Time Temp Pulse Resp B/P (MAP) Pulse Ox O2 Delivery O2 Flow Rate FiO2 04/14/18 16:10 97.8 81 18 128/69 (88) 95 04/12/18 05:39 Room Air I&O Intake and Output 04/14/18 07:00 Intake Total 600 ml Balance 600 ml Intake Oral 600 ml Current Medications: Meds: Current Medications Magnesium Hydroxide (Milk Of Magnesia) 2,400 mg 1X ONCE PO ; Start 04/10/18 at 04:00; Stop 04/10/18 at 05:06; Status DC Acetaminophen (Tylenol) 650 mg PRN Q6HRS PRN PO PAIN / TEMP; Start 04/10/18 at 04:15; Status UNV Multi-Ingredient Ointment (Analgesic [place]) 1 adriana PRN QID PRN TP MUSCLE PAIN; Start 04/10/18 at 04:15 Al Hydroxide/Mg Hydroxide (Mylanta Plus Xs) 15 ml PRN AFTMEALHC PRN PO DYSPEPSIA; Start 04/10/18 at 04:15 Magnesium Hydroxide (Milk Of Magnesia) 2,400 mg PRN QHS PRN PO CONSTIPATION; Start 04/10/18 at 04:15 Acetaminophen (Tylenol) 650 mg PRN Q4HRS PRN PO PAIN / TEMP; Start 04/10/18 at 05:00 Acetaminophen (Tylenol) 650 mg TID PO Last administered on 04/14/18at 08:10; Start 04/10/18 at 09:00 Ascorbic Acid (Vitamin C) 500 mg BID PO Last administered on 04/14/18at 08:10; Start 04/10/18 at 09:00 Aspirin (Aspirin Enteric Coated) 325 mg DAILYWBKFT PO Last administered on at 08:10; Start 04/10/18 at 08:00 Calcium/Vitamin D (Oscal D 500mg/ 200uts) 1 tab BIDWMEALS PO Last administered on 04/14/18at 16:49; Start 04/10/18 at 08:00 Diclofenac Sodium (Voltaren) 4 adriana PRN BID PRN TP PAIN; Start 04/10/18 at 05: 00 Levothyroxine Sodium (Synthroid) 100 mcg DAILY06 PO Last administered on at 04:59; Start 04/10/18 at 06:00 Lactulose (Lactulose) 20 gm PRN Q12HR PRN PO CONSTIPATION; Start 04/10/18 at 05:00 Duloxetine HCl (Cymbalta) 30 mg QHS PO Last administered on 04/13/18at 20:08; Start 04/10/18 at 21:00 Duloxetine HCl (Cymbalta) 60 mg DAILY PO Last administered on 04/14/18at 08:10 ; Start 04/10/18 at 09:00 Memantine (Namenda) 10 mg BID PO Last administered on 04/14/18at 08:10; Start 04/10/18 at 09:00 Olanzapine (ZyPREXA) 5 mg DAILY PO Last administered on 04/14/18at 08:10; Start 04/10/18 at 09:00; Stop 04/14/18 at 16:40; Status DC Olanzapine (ZyPREXA) 10 mg QHS PO Last administered on 04/13/18at 20:08; Start 04/10/18 at 21:00; Stop 04/14/18 at 16:40; Status DC Rivastigmine (Exelon) 1 patch DAILY TD Last administered on 04/14/18at 08:11; Start 04/10/18 at 09:00 Vitamin D (Vitamin D3) 50,000 unit WEEKLY PO Last administered on 04/10/18at 17 :47; Start 04/10/18 at 16:00 Quetiapine Fumarate (SEROquel) 25 mg BIDWBK/ PO ; Start 04/15/18 at 08:00 Active Scripts Active Reported Voltaren (Diclofenac Sodium) 100 Gm Gel..gram. 4 Gm TP PRN BID PRN Vitamin C (Ascorbic Acid) 500 Mg Tablet 500 Mg PO BID Tylenol (Acetaminophen) 325 Mg Tablet 650 Mg PO TID EXELON 4.6mg/24hr (Rivastigmine) 1 Each Patch.td24 1 Patch TD DAILY Olanzapine 5 Mg Tablet 5 Mg PO DAILY Olanzapine 10 Mg Tablet 10 Mg PO QHS Namenda (Memantine Hcl) 10 Mg Tablet 10 Mg PO BID Levothyroxine Sodium 100 Mcg Tablet 100 Mcg PO DAILYAC Lactulose 10 Gm/15 Ml Solution 20 Gm PO PRN Q12HR PRN Cymbalta (Duloxetine Hcl) 60 Mg Capsule. 60 Mg PO DAILY Cymbalta (Duloxetine Hcl) 30 Mg Capsule. 30 Mg PO QHS Calcium 500 + Vit D 200 Tablet (Calcium Carbonate/Vitamin D3) 1 Each Tablet 1 Tab PO BID Aspirin Ec (Aspirin) 325 Mg Tablet.dr 325 Mg PO DAILY Tylenol (Acetaminophen) 325 Mg Tablet 650 Mg PO PRN Q4HRS PRN I have reviewed the current psychotropics carefully including drug interactions. Risk benefit ratio favors no change other than as noted in my dictated progress note. Diagnosis: Problems: (1) Mental status change resolved AUGIE SANCHEZ MD Apr 14, 2018 19:13
[2018-04-14] MEDS: DULoxetine HCL 30 MG CAPSULE.DR PO SCH (20:33)
--- NOTE | 2018-04-14 21:41 | PN ---
DATE: 04/13/2018 PSYCHIATRIC PROGRESS NOTE This late entry 04/13/2018 covers elements not covered in my initial note. SUBJECTIVE: I met with the patient in the evening. The patient slept 6 hours previous night. Also discussed with Dr. Norris who had covered for me over the past 1 week or so. She was not aggressive the previous night, extremely disorganized, rambling in his speech, oriented x 1. Ambulation impaired, in Broda. REVIEW OF SYSTEMS: No CV, , pulmonary, eye, ENT system symptoms on review. Reliability poor. MENTAL STATUS EXAM: Oriented to herself. Insight, judgment, recent, and remote memory, attention, concentration, fund of knowledge poor, consistent with her diagnosis. IMPRESSION: Major neurocognitive disorder, Alzheimer, vascular with delusion, depression, behavioral disturbance; anxiety disorder, unspecified; impulse control disorder, unspecified. Rest unchanged. PLAN: Continue psychotropics from initial note. She is on Zyprexa 5 mg a.m. and 10 at bedtime, Cymbalta 90 mg a day, Exelon patch 4.6 mg a day, Namenda 10 b.i.d., May consider changing Zyprexa to Seroquel, but I would like to assess her another day before deciding. AUGIE SANCHEZ MD DR: JESUS/mateo JOB#: [id number] / [id number]
[2018-04-15] MEDS: LEVOTHYROXINE 100 MCG TABLET PO SCH (05:41)
[2018-04-15 05:48] VITALS: BP 116/75
[2018-04-15 06:17] LABS: BASO # 0.1 x10^3/uL (0.0-0.2); BASO % 1 % (0-3); EOS # 0.3 x10^3/uL (0.0-0.7); EOS % 3 % (0-3); HEMOGLOBIN 8.4 g/dL (12.0-15.5); LYMPH # 2.5 x10^3/uL (1.0-4.8); LYMPH % 30 % (24-48); MEAN CORPUSCULAR HEMOGLOBIN 29 pg (25-35); MEAN CORPUSCULAR HGB CONC 31 g/dL (31-37); MEAN CORPUSCULAR VOLUME 94 fL (79-100); MONO # 0.8 x10^3/uL (0.0-1.1); MONO % 10 % (0-9); NEUT # 4.8 x10^3uL (1.8-7.7); NEUT % 57 % (31-73); PLATELET COUNT 432 x10^3/uL (140-400); RED BLOOD COUNT 2.87 x10^6/uL (3.50-5.40); RED CELL DISTRIBUTION WIDTH 16.5 % (11.5-14.5); WHITE BLOOD COUNT 8.5 x10^3/uL (4.0-11.0)
[2018-04-15 06:32] LABS: ALBUMIN 2.8 g/dL (3.4-5.0); ALBUMIN/GLOBULIN RATIO 0.7 (1.0-1.7); CALCIUM 9.5 mg/dL (8.5-10.1); GFR 53.5; POTASSIUM 4.3 mmol/L (3.5-5.1); TOTAL BILIRUBIN 0.2 mg/dL (0.2-1.0)
[2018-04-15] MEDS: ACETAMINOPHEN 325 MG TABLET PO SCH ×3 (07:41→19:40)
[2018-04-15] MEDS: ASPIRIN ENTERIC COATED 325 MG TABLET.DR. PO SCH (07:41)
[2018-04-15] MEDS: RIVASTIGMINE 4.6MG PATCH. TD SCH (07:41)
[2018-04-15] MEDS: CALCIUM CARB/VIT D3 500/200 TABLET PO SCH ×2 (07:41→17:42)
[2018-04-15] MEDS: MEMANTINE 10 MG TABLET. PO SCH ×2 (07:41→19:39)
[2018-04-15] MEDS: DULoxetine HCL 60 MG CAPSULE.DR PO SCH (07:41)
[2018-04-15] MEDS: ASCORBIC ACID 500 MG TABLET PO SCH ×2 (07:41→19:39)
[2018-04-15] MEDS: QUEtiapine 25 MG TABLET. PO SCH ×2 (07:42→11:55)
[2018-04-15 15:59] VITALS: BP 126/78
[2018-04-15] MEDS: DULoxetine HCL 30 MG CAPSULE.DR PO SCH (19:39)
--- NOTE | 2018-04-15 19:43 | PDOC ---
Exam Note: Adriano Note: Please also refer to the separate dictated note~for this date of service dictated separately.~Patient seen individually. Discussed the patient with Nursing staff reviewed the chart.~Reviewed interim history and current functioning. Reviewed vital signs,~Labs/ Radiology~and current medications noted below. Continue current treatment with the changes noted in the dictated addendum note Assessment: Vital Signs: Vital Signs Date Time Temp Pulse Resp B/P (MAP) Pulse Ox O2 Delivery O2 Flow Rate FiO2 04/15/18 15:59 98.1 86 18 126/78 (94) 98 04/12/18 05:39 Room Air I&O Intake and Output 04/15/18 07:00 Intake Total 820 ml Balance 820 ml Intake Oral 820 ml # Bowel Movements 1 Labs: Laboratory Tests Test 04/15/18 06:02 White Blood Count 8.5 x10^3/uL (4.0-11.0) Red Blood Count 2.87 x10^6/uL (3.50-5.40) L Hemoglobin 8.4 g/dL (12.0-15.5) L Hematocrit 27.0 % (36.0-47.0) L Mean Corpuscular Volume 94 fL (79-100) Mean Corpuscular Hemoglobin 29 pg (25-35) Mean Corpuscular Hemoglobin Concent 31 g/dL (31-37) Red Cell Distribution Width 16.5 % (11.5-14.5) H Platelet Count 432 x10^3/uL (140-400) H Neutrophils (%) (Auto) 57 % (31-73) Lymphocytes (%) (Auto) 30 % (24-48) Monocytes (%) (Auto) 10 % (0-9) H Eosinophils (%) (Auto) 3 % (0-3) Basophils (%) (Auto) 1 % (0-3) Neutrophils # (Auto) 4.8 x10^3uL (1.8-7.7) Lymphocytes # (Auto) 2.5 x10^3/uL (1.0-4.8) Monocytes # (Auto) 0.8 x10^3/uL (0.0-1.1) Eosinophils # (Auto) 0.3 x10^3/uL (0.0-0.7) Basophils # (Auto) 0.1 x10^3/uL (0.0-0.2) Sodium Level 150 mmol/L (136-145) H Potassium Level 4.3 mmol/L (3.5-5.1) Chloride Level 113 mmol/L (98-107) H Carbon Dioxide Level 28 mmol/L (21-32) Anion Gap 9 (6-14) Blood Urea Nitrogen 32 mg/dL (7-20) H Creatinine 1.0 mg/dL (0.6-1.0) Estimated GFR (Cockcroft-Gault) 53.5 BUN/Creatinine Ratio 32 (6-20) H Glucose Level 95 mg/dL (70-99) Calcium Level 9.5 mg/dL (8.5-10.1) Total Bilirubin 0.2 mg/dL (0.2-1.0) Aspartate Amino Transferase (AST) 15 U/L (15-37) Alanine Aminotransferase (ALT) 14 U/L (14-59) Alkaline Phosphatase 79 U/L (46-116) Total Protein 7.0 g/dL (6.4-8.2) Albumin 2.8 g/dL (3.4-5.0) L Albumin/Globulin Ratio 0.7 (1.0-1.7) L Current Medications: Meds: Current Medications Magnesium Hydroxide (Milk Of Magnesia) 2,400 mg 1X ONCE PO ; Start 04/10/18 at 04:00; Stop 04/10/18 at 05:06; Status DC Acetaminophen (Tylenol) 650 mg PRN Q6HRS PRN PO PAIN / TEMP; Start 04/10/18 at 04:15; Status UNV Multi-Ingredient Ointment (Analgesic [place]) 1 adriana PRN QID PRN TP MUSCLE PAIN; Start 04/10/18 at 04:15 Al Hydroxide/Mg Hydroxide (Mylanta Plus Xs) 15 ml PRN AFTMEALHC PRN PO DYSPEPSIA; Start 04/10/18 at 04:15 Magnesium Hydroxide (Milk Of Magnesia) 2,400 mg PRN QHS PRN PO CONSTIPATION; Start 04/10/18 at 04:15 Acetaminophen (Tylenol) 650 mg PRN Q4HRS PRN PO PAIN / TEMP; Start 04/10/18 at 05:00 Acetaminophen (Tylenol) 650 mg TID PO Last administered on 04/15/18at 15:04; Start 04/10/18 at 09:00 Ascorbic Acid (Vitamin C) 500 mg BID PO Last administered on 04/15/18at 07:41; Start 04/10/18 at 09:00 Aspirin (Aspirin Enteric Coated) 325 mg DAILYWBKFT PO Last administered on at 07:41; Start 04/10/18 at 08:00 Calcium/Vitamin D (Oscal D 500mg/ 200uts) 1 tab BIDWMEALS PO Last administered on 04/15/18at 17:42; Start 04/10/18 at 08:00 Diclofenac Sodium (Voltaren) 4 adriana PRN BID PRN TP PAIN; Start 04/10/18 at 05: 00 Levothyroxine Sodium (Synthroid) 100 mcg DAILY06 PO Last administered on at 05:41; Start 04/10/18 at 06:00 Lactulose (Lactulose) 20 gm PRN Q12HR PRN PO CONSTIPATION; Start 04/10/18 at 05:00 Duloxetine HCl (Cymbalta) 30 mg QHS PO Last administered on 04/14/18at 20:33; Start 04/10/18 at 21:00 Duloxetine HCl (Cymbalta) 60 mg DAILY PO Last administered on 04/15/18at 07:41 ; Start 04/10/18 at 09:00 Memantine (Namenda) 10 mg BID PO Last administered on 04/15/18at 07:41; Start 04/10/18 at 09:00 Olanzapine (ZyPREXA) 5 mg DAILY PO Last administered on 04/14/18at 08:10; Start 04/10/18 at 09:00; Stop 04/14/18 at 16:40; Status DC Olanzapine (ZyPREXA) 10 mg QHS PO Last administered on 04/13/18at 20:08; Start 04/10/18 at 21:00; Stop 04/14/18 at 16:40; Status DC Rivastigmine (Exelon) 1 patch DAILY TD Last administered on 04/15/18at 07:41; Start 04/10/18 at 09:00 Vitamin D (Vitamin D3) 50,000 unit WEEKLY PO Last administered on 04/10/18at 17 :47; Start 04/10/18 at 16:00 Quetiapine Fumarate (SEROquel) 25 mg BIDWBKFT/TERENCE PO Last administered on 04/15at 11:55; Start 04/15/18 at 08:00 Active Scripts Active Reported Voltaren (Diclofenac Sodium) 100 Gm Gel..gram. 4 Gm TP PRN BID PRN Vitamin C (Ascorbic Acid) 500 Mg Tablet 500 Mg PO BID Tylenol (Acetaminophen) 325 Mg Tablet 650 Mg PO TID EXELON 4.6mg/24hr (Rivastigmine) 1 Each Patch.td24 1 Patch TD DAILY Olanzapine 5 Mg Tablet 5 Mg PO DAILY Olanzapine 10 Mg Tablet 10 Mg PO QHS Namenda (Memantine Hcl) 10 Mg Tablet 10 Mg PO BID Levothyroxine Sodium 100 Mcg Tablet 100 Mcg PO DAILYAC Lactulose 10 Gm/15 Ml Solution 20 Gm PO PRN Q12HR PRN Cymbalta (Duloxetine Hcl) 60 Mg Capsule. 60 Mg PO DAILY Cymbalta (Duloxetine Hcl) 30 Mg Capsule. 30 Mg PO QHS Calcium 500 + Vit D 200 Tablet (Calcium Carbonate/Vitamin D3) 1 Each Tablet 1 Tab PO BID Aspirin Ec (Aspirin) 325 Mg Tablet. 325 Mg PO DAILY Tylenol (Acetaminophen) 325 Mg Tablet 650 Mg PO PRN Q4HRS PRN I have reviewed the current psychotropics carefully including drug interactions. Risk benefit ratio favors no change other than as noted in my dictated progress note. Diagnosis: Problems: (1) Alzheimer's dementia (2) Confusion (3) Depression (4) Vascular dementia with delusions (5) Mental status change resolved AUGIE SANCHEZ MD Apr 15, 2018 19:43
--- NOTE | 2018-04-15 21:01 | PN ---
DATE: 04/14/2018 PSYCHIATRIC PROGRESS NOTE This late entry 04/14/2018 covers elements not covered in my initial note. SUBJECTIVE: I met with the patient in the evening. The patient slept 6-1/2 hours previous evening. She remains somewhat restless, anxious, remains in a Broda chair. Speech is word salad. When I questioned her, she thought the year was 2018, but able to say that the month is March. Denied active hallucinations. The family is inquiring about her progress and whether she would be able to return home from here. I would need placement. She was at [facility] and probably she will need a more structured placement depending on her progress. REVIEW OF SYSTEMS: No CV, , pulmonary, eye, ENT system symptoms on review. I met with her in her room. MENTAL STATUS EXAM: Oriented to herself and situation. Speech coherent, rapid at times. Abstraction fair, computation impaired, language function intact, attention span short. Mood and affect remain somewhat labile. LABORATORY DATA: Reviewed. IMPRESSION: Bipolar 1 disorder, mixed with psychotic features; anxiety disorder, unspecified; major neurocognitive disorder, Alzheimer, vascular with delusions. PLAN: We will change the patient's Zyprexa total 15 mg a day to Seroquel initially 25 mg a.m. and noon, but we may need Risperdal as a high potency atypical antipsychotic. Continue Cymbalta for now, which is 90 mg a day, Exelon patch, Namenda, but we may well need the addition of a mood stabilizer, perhaps Depakote. We will make a decision depending on how she does with the initial changes. AUGIE SANCHEZ MD DR: JESUS/mateo JOB#: [id number] / [id number]
[2018-04-16 05:36] VITALS: BP 127/84
[2018-04-16] MEDS: LEVOTHYROXINE 100 MCG TABLET PO SCH (06:11)
[2018-04-16] MEDS: CALCIUM CARB/VIT D3 500/200 TABLET PO SCH ×2 (07:54→16:47)
[2018-04-16] MEDS: RIVASTIGMINE 4.6MG PATCH. TD SCH (07:54)
[2018-04-16] MEDS: DULoxetine HCL 60 MG CAPSULE.DR PO SCH ×2 (07:54→20:58)
[2018-04-16] MEDS: ASPIRIN ENTERIC COATED 325 MG TABLET.DR. PO SCH (07:54)
[2018-04-16] MEDS: MEMANTINE 10 MG TABLET. PO SCH ×2 (07:54→20:56)
[2018-04-16] MEDS: ASCORBIC ACID 500 MG TABLET PO SCH ×2 (07:54→20:56)
[2018-04-16] MEDS: QUEtiapine 25 MG TABLET. PO SCH ×2 (07:54→11:54)
[2018-04-16] MEDS: ACETAMINOPHEN 325 MG TABLET PO SCH ×3 (07:54→20:56)
[2018-04-16 15:32] VITALS: BP 119/76
--- NOTE | 2018-04-16 22:53 | PDOC ---
Exam Note: Adriano Note: Please also refer to the separate dictated note~for this date of service dictated separately.~Patient seen individually. Discussed the patient with Nursing staff reviewed the chart.~Reviewed interim history and current functioning. Reviewed vital signs,~Labs/ Radiology~and current medications noted below. Continue current treatment with the changes noted in the dictated addendum note Assessment: Vital Signs: Vital Signs Date Time Temp Pulse Resp B/P (MAP) Pulse Ox O2 Delivery O2 Flow Rate FiO2 04/16/18 15:32 98.1 87 16 119/76 (90) 99 Room Air I&O Intake and Output 04/16/18 07:01 Intake Total 720 ml Balance 720 ml Intake Oral 720 ml # Bowel Movements 1 Current Medications: Meds: Current Medications Magnesium Hydroxide (Milk Of Magnesia) 2,400 mg 1X ONCE PO ; Start 04/10/18 at 04:00; Stop 04/10/18 at 05:06; Status DC Acetaminophen (Tylenol) 650 mg PRN Q6HRS PRN PO PAIN / TEMP; Start 04/10/18 at 04:15; Status UNV Multi-Ingredient Ointment (Analgesic [place]) 1 adriana PRN QID PRN TP MUSCLE PAIN; Start 04/10/18 at 04:15 Al Hydroxide/Mg Hydroxide (Mylanta Plus Xs) 15 ml PRN AFTMEALHC PRN PO DYSPEPSIA; Start 04/10/18 at 04:15 Magnesium Hydroxide (Milk Of Magnesia) 2,400 mg PRN QHS PRN PO CONSTIPATION; Start 04/10/18 at 04:15 Acetaminophen (Tylenol) 650 mg PRN Q4HRS PRN PO PAIN / TEMP; Start 04/10/18 at 05:00 Acetaminophen (Tylenol) 650 mg TID PO Last administered on 04/16/18at 20:56; Start 04/10/18 at 09:00 Ascorbic Acid (Vitamin C) 500 mg BID PO Last administered on 04/16/18at 20:56; Start 04/10/18 at 09:00 Aspirin (Aspirin Enteric Coated) 325 mg DAILYWBKFT PO Last administered on at 07:54; Start 04/10/18 at 08:00 Calcium/Vitamin D (Oscal D 500mg/ 200uts) 1 tab BIDWMEALS PO Last administered on 04/16/18at 16:47; Start 04/10/18 at 08:00 Diclofenac Sodium (Voltaren) 4 adriana PRN BID PRN TP PAIN; Start 04/10/18 at 05: 00 Levothyroxine Sodium (Synthroid) 100 mcg DAILY06 PO Last administered on at 06:11; Start 04/10/18 at 06:00 Lactulose (Lactulose) 20 gm PRN Q12HR PRN PO CONSTIPATION; Start 04/10/18 at 05:00 Duloxetine HCl (Cymbalta) 30 mg QHS PO Last administered on 04/15/18at 19:39; Start 04/10/18 at 21:00; Stop 04/16/18 at 11:14; Status DC Duloxetine HCl (Cymbalta) 60 mg DAILY PO Last administered on 04/16/18at 07:54 ; Start 04/10/18 at 09:00; Stop 04/16/18 at 11:14; Status DC Memantine (Namenda) 10 mg BID PO Last administered on 04/16/18at 20:56; Start 04/10/18 at 09:00 Olanzapine (ZyPREXA) 5 mg DAILY PO Last administered on 04/14/18at 08:10; Start 04/10/18 at 09:00; Stop 04/14/18 at 16:40; Status DC Olanzapine (ZyPREXA) 10 mg QHS PO Last administered on 04/13/18at 20:08; Start 04/10/18 at 21:00; Stop 04/14/18 at 16:40; Status DC Rivastigmine (Exelon) 1 patch DAILY TD Last administered on 04/16/18at 07:54; Start 04/10/18 at 09:00; Stop 04/16/18 at 11:15; Status DC Vitamin D (Vitamin D3) 50,000 unit WEEKLY PO Last administered on 04/10/18at 17 :47; Start 04/10/18 at 16:00 Quetiapine Fumarate (SEROquel) 25 mg BIDWBK/ PO Last administered on 04/16at 11:54; Start 04/15/18 at 08:00 Duloxetine HCl (Cymbalta) 60 mg HS PO Last administered on 04/16/18at 20:58; Start 04/16/18 at 21:00 Rivastigmine (Exelon) 1 patch DAILY TD ; Start 04/17/18 at 09:00 Active Scripts Active Reported Voltaren (Diclofenac Sodium) 100 Gm Gel..gram. 4 Gm TP PRN BID PRN Vitamin C (Ascorbic Acid) 500 Mg Tablet 500 Mg PO BID Tylenol (Acetaminophen) 325 Mg Tablet 650 Mg PO TID EXELON 4.6mg/24hr (Rivastigmine) 1 Each Patch.td24 1 Patch TD DAILY Olanzapine 5 Mg Tablet 5 Mg PO DAILY Olanzapine 10 Mg Tablet 10 Mg PO QHS Namenda (Memantine Hcl) 10 Mg Tablet 10 Mg PO BID Levothyroxine Sodium 100 Mcg Tablet 100 Mcg PO DAILYAC Lactulose 10 Gm/15 Ml Solution 20 Gm PO PRN Q12HR PRN Cymbalta (Duloxetine Hcl) 60 Mg Capsule. 60 Mg PO DAILY Cymbalta (Duloxetine Hcl) 30 Mg Capsule. 30 Mg PO QHS Calcium 500 + Vit D 200 Tablet (Calcium Carbonate/Vitamin D3) 1 Each Tablet 1 Tab PO BID Aspirin Ec (Aspirin) 325 Mg Tablet. 325 Mg PO DAILY Tylenol (Acetaminophen) 325 Mg Tablet 650 Mg PO PRN Q4HRS PRN I have reviewed the current psychotropics carefully including drug interactions. Risk benefit ratio favors no change other than as noted in my dictated progress note. Diagnosis: Problems: (1) Mental status change resolved (2) Confusion (3) Depression (4) Vascular dementia with delusions (5) Alzheimer's dementia AUGIE SANCHEZ MD Apr 16, 2018 22:53
[2018-04-17] MEDS: LEVOTHYROXINE 100 MCG TABLET PO SCH (05:40)
[2018-04-17 06:24] VITALS: BP 130/80
[2018-04-17] MEDS: MEMANTINE 10 MG TABLET. PO SCH ×2 (10:09→20:09)
[2018-04-17] MEDS: ACETAMINOPHEN 325 MG TABLET PO SCH ×3 (10:09→20:09)
[2018-04-17] MEDS: CALCIUM CARB/VIT D3 500/200 TABLET PO SCH ×2 (10:09→17:42)
[2018-04-17] MEDS: ASCORBIC ACID 500 MG TABLET PO SCH ×2 (10:09→20:09)
[2018-04-17] MEDS: CHOLECALCIFEROL (VITAMIN D3) 50,000 UNIT CAPSULE PO SCH (10:09)
[2018-04-17] MEDS: QUEtiapine 25 MG TABLET. PO SCH ×2 (10:10→13:35)
[2018-04-17] MEDS: ASPIRIN ENTERIC COATED 325 MG TABLET.DR. PO SCH (10:10)
[2018-04-17] MEDS: RIVASTIGMINE 9.5MG PATCH. TD SCH (10:25)
[2018-04-17 15:21] VITALS: BP 93/52
[2018-04-17] MEDS: DULoxetine HCL 60 MG CAPSULE.DR PO SCH (20:09)
--- NOTE | 2018-04-17 20:11 | PN ---
DATE: 04/15/2018 PSYCHIATRIC PROGRESS NOTE This late entry 04/15/2018 covers elements not covered in my initial note. SUBJECTIVE: I met with the patient in the evening. The patient remains confused, remains in a Broda chair, restless, slightly more verbal, less reaching out and grabbing at things, but speech is word salad. REVIEW OF SYSTEMS: No CV, , pulmonary, eye, ENT system symptoms on review. Gait unsteady, in Broda chair. Reliability poor. MENTAL STATUS EXAM: Oriented to herself. Insight, judgment, recent and remote memory, attention, concentration, fund of knowledge poor, consistent with her diagnosis mentioned in my initial note. PLAN: No change from initial note. MAN Alva SANCHEZ MD DR: JESUS/mateo JOB#: [id number] / [id number]
--- NOTE | 2018-04-17 20:14 | PN ---
DATE: 04/16/2018 PSYCHIATRIC PROGRESS NOTE This late entry 04/16/2018 covers elements not covered in my initial note. SUBJECTIVE: I met with the patient in the evening. The patient slept reasonably the previous night. She has been less psychotic, per nursing report, less hyperverbal. She does have some dehydration and dysphagia. REVIEW OF SYSTEMS: Ambulation impaired, in Broda chair. No CV, , pulmonary, eye, ENT system symptoms on review. MENTAL STATUS EXAM: Oriented to herself. Insight, judgment, recent and remote memory, attention, concentration, fund of knowledge poor, consistent with her diagnosis. LABORATORY DATA: Reviewed. IMPRESSION: Major neurocognitive disorder, Alzheimer, vascular with delusion, depression, behavioral disturbance; bipolar 1 disorder, mixed with psychotic features. PLAN: Reduce Cymbalta from 90 mg a day down to 60 mg a day, which would be more reasonable for her age and increase Exelon patch from 4.6 up to 9.5 mg a day. Continue Seroquel unchanged together with Namenda for now. MAN Alva SANCHEZ MD DR: JESUS/mateo JOB#: [id number] / [id number]
--- NOTE | 2018-04-17 22:41 | PDOC ---
Exam Note: Adriano Note: Please also refer to the separate dictated note~for this date of service dictated separately.~Patient seen individually. Discussed the patient with Nursing staff reviewed the chart.~Reviewed interim history and current functioning. Reviewed vital signs,~Labs/ Radiology~and current medications noted below. Continue current treatment with the changes noted in the dictated addendum note Assessment: Vital Signs: Vital Signs Date Time Temp Pulse Resp B/P (MAP) Pulse Ox O2 Delivery O2 Flow Rate FiO2 04/17/18 15:21 98.4 94 18 93/52 (66) 94 04/17/18 06:24 Room Air I&O Intake and Output 04/17/18 07:01 Intake Total 960 ml Balance 960 ml Intake Oral 960 ml # Voids 2 Current Medications: Meds: Current Medications Magnesium Hydroxide (Milk Of Magnesia) 2,400 mg 1X ONCE PO ; Start 04/10/18 at 04:00; Stop 04/10/18 at 05:06; Status DC Acetaminophen (Tylenol) 650 mg PRN Q6HRS PRN PO PAIN / TEMP; Start 04/10/18 at 04:15; Status UNV Multi-Ingredient Ointment (Analgesic Eldred) 1 adriana PRN QID PRN TP MUSCLE PAIN; Start 04/10/18 at 04:15 Al Hydroxide/Mg Hydroxide (Mylanta Plus Xs) 15 ml PRN AFTMEALHC PRN PO DYSPEPSIA; Start 04/10/18 at 04:15 Magnesium Hydroxide (Milk Of Magnesia) 2,400 mg PRN QHS PRN PO CONSTIPATION; Start 04/10/18 at 04:15 Acetaminophen (Tylenol) 650 mg PRN Q4HRS PRN PO PAIN / TEMP; Start 04/10/18 at 05:00 Acetaminophen (Tylenol) 650 mg TID PO Last administered on 04/17/18at 20:09; Start 04/10/18 at 09:00 Ascorbic Acid (Vitamin C) 500 mg BID PO Last administered on 04/17/18at 20:09; Start 04/10/18 at 09:00 Aspirin (Aspirin Enteric Coated) 325 mg DAILYWBKFT PO Last administered on at 10:10; Start 04/10/18 at 08:00 Calcium/Vitamin D (Oscal D 500mg/ 200uts) 1 tab BIDWMEALS PO Last administered on 04/17/18at 17:42; Start 04/10/18 at 08:00 Diclofenac Sodium (Voltaren) 4 adriana PRN BID PRN TP PAIN; Start 04/10/18 at 05: 00 Levothyroxine Sodium (Synthroid) 100 mcg DAILY06 PO Last administered on at 05:40; Start 04/10/18 at 06:00 Lactulose (Lactulose) 20 gm PRN Q12HR PRN PO CONSTIPATION; Start 04/10/18 at 05:00 Duloxetine HCl (Cymbalta) 30 mg QHS PO Last administered on 04/15/18at 19:39; Start 04/10/18 at 21:00; Stop 04/16/18 at 11:14; Status DC Duloxetine HCl (Cymbalta) 60 mg DAILY PO Last administered on 04/16/18at 07:54 ; Start 04/10/18 at 09:00; Stop 04/16/18 at 11:14; Status DC Memantine (Namenda) 10 mg BID PO Last administered on 04/17/18at 20:09; Start 04/10/18 at 09:00 Olanzapine (ZyPREXA) 5 mg DAILY PO Last administered on 04/14/18at 08:10; Start 04/10/18 at 09:00; Stop 04/14/18 at 16:40; Status DC Olanzapine (ZyPREXA) 10 mg QHS PO Last administered on 04/13/18at 20:08; Start 04/10/18 at 21:00; Stop 04/14/18 at 16:40; Status DC Rivastigmine (Exelon) 1 patch DAILY TD Last administered on 04/16/18at 07:54; Start 04/10/18 at 09:00; Stop 04/16/18 at 11:15; Status DC Vitamin D (Vitamin D3) 50,000 unit WEEKLY PO Last administered on 04/17/18at 10 :09; Start 04/10/18 at 16:00 Quetiapine Fumarate (SEROquel) 25 mg BIDWBKFT/TERENCE PO Last administered on 04/17at 13:35; Start 04/15/18 at 08:00 Duloxetine HCl (Cymbalta) 60 mg HS PO Last administered on 04/17/18at 20:09; Start 04/16/18 at 21:00 Rivastigmine (Exelon) 1 patch DAILY TD Last administered on 04/17/18at 10:25; Start 04/17/18 at 09:00 Active Scripts Active Reported Voltaren (Diclofenac Sodium) 100 Gm Gel..gram. 4 Gm TP PRN BID PRN Vitamin C (Ascorbic Acid) 500 Mg Tablet 500 Mg PO BID Tylenol (Acetaminophen) 325 Mg Tablet 650 Mg PO TID EXELON 4.6mg/24hr (Rivastigmine) 1 Each Patch.td24 1 Patch TD DAILY Olanzapine 5 Mg Tablet 5 Mg PO DAILY Olanzapine 10 Mg Tablet 10 Mg PO QHS Namenda (Memantine Hcl) 10 Mg Tablet 10 Mg PO BID Levothyroxine Sodium 100 Mcg Tablet 100 Mcg PO DAILYAC Lactulose 10 Gm/15 Ml Solution 20 Gm PO PRN Q12HR PRN Cymbalta (Duloxetine Hcl) 60 Mg Capsule. 60 Mg PO DAILY Cymbalta (Duloxetine Hcl) 30 Mg Capsule. 30 Mg PO QHS Calcium 500 + Vit D 200 Tablet (Calcium Carbonate/Vitamin D3) 1 Each Tablet 1 Tab PO BID Aspirin Ec (Aspirin) 325 Mg Tablet. 325 Mg PO DAILY Tylenol (Acetaminophen) 325 Mg Tablet 650 Mg PO PRN Q4HRS PRN I have reviewed the current psychotropics carefully including drug interactions. Risk benefit ratio favors no change other than as noted in my dictated progress note. Diagnosis: Problems: (1) Mental status change resolved (2) Confusion (3) Depression (4) Vascular dementia with delusions (5) Alzheimer's dementia AUGIE SANCHEZ MD Apr 17, 2018 22:41
[2018-04-18] MEDS: LEVOTHYROXINE 100 MCG TABLET PO SCH (05:30)
[2018-04-18 06:35] VITALS: BP 138/80
[2018-04-18] MEDS: MEMANTINE 10 MG TABLET. PO SCH ×2 (08:45→19:49)
[2018-04-18] MEDS: RIVASTIGMINE 9.5MG PATCH. TD SCH (08:45)
[2018-04-18] MEDS: ACETAMINOPHEN 325 MG TABLET PO SCH ×3 (08:45→19:50)
[2018-04-18] MEDS: QUEtiapine 25 MG TABLET. PO SCH ×2 (08:45→12:47)
[2018-04-18] MEDS: ASPIRIN ENTERIC COATED 325 MG TABLET.DR. PO SCH (08:45)
[2018-04-18] MEDS: ASCORBIC ACID 500 MG TABLET PO SCH ×2 (08:45→19:49)
[2018-04-18] MEDS: CALCIUM CARB/VIT D3 500/200 TABLET PO SCH ×2 (08:45→16:22)
[2018-04-18 11:49] LABS: ALBUMIN 2.7 g/dL (3.4-5.0); ALBUMIN/GLOBULIN RATIO 0.6 (1.0-1.7); CALCIUM 9.4 mg/dL (8.5-10.1); CREATININE 0.9 mg/dL (0.6-1.0); GFR 60.4; TOTAL BILIRUBIN 0.2 mg/dL (0.2-1.0)
[2018-04-18 11:54] LABS: BASO # 0.1 x10^3/uL (0.0-0.2); BASO % 1 % (0-3); EOS # 0.2 x10^3/uL (0.0-0.7); EOS % 3 % (0-3); HEMATOCRIT 26.8 % (36.0-47.0); HEMOGLOBIN 8.5 g/dL (12.0-15.5); LYMPH # 2.4 x10^3/uL (1.0-4.8); LYMPH % 29 % (24-48); MEAN CORPUSCULAR HEMOGLOBIN 29 pg (25-35); MEAN CORPUSCULAR HGB CONC 32 g/dL (31-37); MEAN CORPUSCULAR VOLUME 92 fL (79-100); MONO # 0.6 x10^3/uL (0.0-1.1); MONO % 8 % (0-9); NEUT # 4.9 x10^3uL (1.8-7.7); NEUT % 60 % (31-73); PLATELET COUNT 391 x10^3/uL (140-400); RED BLOOD COUNT 2.91 x10^6/uL (3.50-5.40); RED CELL DISTRIBUTION WIDTH 16.8 % (11.5-14.5); WHITE BLOOD COUNT 8.2 x10^3/uL (4.0-11.0)
[2018-04-18 15:59] VITALS: BP 111/74
[2018-04-18] MEDS: DULoxetine HCL 60 MG CAPSULE.DR PO SCH (19:49)
--- NOTE | 2018-04-18 21:59 | PDOC ---
Exam Note: Adriano Note: Please also refer to the separate dictated note~for this date of service dictated separately.~Patient seen individually. Discussed the patient with Nursing staff reviewed the chart.~Reviewed interim history and current functioning. Reviewed vital signs,~Labs/ Radiology~and current medications noted below. Continue current treatment with the changes noted in the dictated addendum note Assessment: Vital Signs: Vital Signs Date Time Temp Pulse Resp B/P (MAP) Pulse Ox O2 Delivery O2 Flow Rate FiO2 04/18/18 15:59 97.4 79 18 111/74 (86) 97 04/18/18 06:35 Room Air I&O Intake and Output 04/18/18 07:01 Intake Total 960 ml Balance 960 ml Intake Oral 960 ml Labs: Laboratory Tests Test 04/18/18 10:50 White Blood Count 8.2 x10^3/uL (4.0-11.0) Red Blood Count 2.91 x10^6/uL (3.50-5.40) L Hemoglobin 8.5 g/dL (12.0-15.5) L Hematocrit 26.8 % (36.0-47.0) L Mean Corpuscular Volume 92 fL (79-100) Mean Corpuscular Hemoglobin 29 pg (25-35) Mean Corpuscular Hemoglobin Concent 32 g/dL (31-37) Red Cell Distribution Width 16.8 % (11.5-14.5) H Platelet Count 391 x10^3/uL (140-400) Neutrophils (%) (Auto) 60 % (31-73) Lymphocytes (%) (Auto) 29 % (24-48) Monocytes (%) (Auto) 8 % (0-9) Eosinophils (%) (Auto) 3 % (0-3) Basophils (%) (Auto) 1 % (0-3) Neutrophils # (Auto) 4.9 x10^3uL (1.8-7.7) Lymphocytes # (Auto) 2.4 x10^3/uL (1.0-4.8) Monocytes # (Auto) 0.6 x10^3/uL (0.0-1.1) Eosinophils # (Auto) 0.2 x10^3/uL (0.0-0.7) Basophils # (Auto) 0.1 x10^3/uL (0.0-0.2) Sodium Level 146 mmol/L (136-145) H Potassium Level 4.0 mmol/L (3.5-5.1) Chloride Level 109 mmol/L (98-107) H Carbon Dioxide Level 28 mmol/L (21-32) Anion Gap 9 (6-14) Blood Urea Nitrogen 30 mg/dL (7-20) H Creatinine 0.9 mg/dL (0.6-1.0) Estimated GFR (Cockcroft-Gault) 60.4 BUN/Creatinine Ratio 33 (6-20) H Glucose Level 102 mg/dL (70-99) H Calcium Level 9.4 mg/dL (8.5-10.1) Total Bilirubin 0.2 mg/dL (0.2-1.0) Aspartate Amino Transferase (AST) 13 U/L (15-37) L Alanine Aminotransferase (ALT) 15 U/L (14-59) Alkaline Phosphatase 75 U/L (46-116) Total Protein 7.0 g/dL (6.4-8.2) Albumin 2.7 g/dL (3.4-5.0) L Albumin/Globulin Ratio 0.6 (1.0-1.7) L Current Medications: Meds: Current Medications Magnesium Hydroxide (Milk Of Magnesia) 2,400 mg 1X ONCE PO ; Start 04/10/18 at 04:00; Stop 04/10/18 at 05:06; Status DC Acetaminophen (Tylenol) 650 mg PRN Q6HRS PRN PO PAIN / TEMP; Start 04/10/18 at 04:15; Status UNV Multi-Ingredient Ointment (Analgesic Enders) 1 adriana PRN QID PRN TP MUSCLE PAIN; Start 04/10/18 at 04:15 Al Hydroxide/Mg Hydroxide (Mylanta Plus Xs) 15 ml PRN AFTMEALHC PRN PO DYSPEPSIA; Start 04/10/18 at 04:15 Magnesium Hydroxide (Milk Of Magnesia) 2,400 mg PRN QHS PRN PO CONSTIPATION; Start 04/10/18 at 04:15 Acetaminophen (Tylenol) 650 mg PRN Q4HRS PRN PO PAIN / TEMP; Start 04/10/18 at 05:00 Acetaminophen (Tylenol) 650 mg TID PO Last administered on 04/18/18at 19:50; Start 04/10/18 at 09:00 Ascorbic Acid (Vitamin C) 500 mg BID PO Last administered on 04/18/18at 19:49; Start 04/10/18 at 09:00 Aspirin (Aspirin Enteric Coated) 325 mg DAILYWBKFT PO Last administered on at 08:45; Start 04/10/18 at 08:00 Calcium/Vitamin D (Oscal D 500mg/ 200uts) 1 tab BIDWMEALS PO Last administered on 04/18/18at 08:45; Start 04/10/18 at 08:00 Diclofenac Sodium (Voltaren) 4 adriana PRN BID PRN TP PAIN; Start 04/10/18 at 05: 00 Levothyroxine Sodium (Synthroid) 100 mcg DAILY06 PO Last administered on at 05:30; Start 04/10/18 at 06:00 Lactulose (Lactulose) 20 gm PRN Q12HR PRN PO CONSTIPATION; Start 04/10/18 at 05:00 Duloxetine HCl (Cymbalta) 30 mg QHS PO Last administered on 04/15/18at 19:39; Start 04/10/18 at 21:00; Stop 04/16/18 at 11:14; Status DC Duloxetine HCl (Cymbalta) 60 mg DAILY PO Last administered on 04/16/18at 07:54 ; Start 04/10/18 at 09:00; Stop 04/16/18 at 11:14; Status DC Memantine (Namenda) 10 mg BID PO Last administered on 04/18/18at 19:49; Start 04/10/18 at 09:00 Olanzapine (ZyPREXA) 5 mg DAILY PO Last administered on 04/14/18at 08:10; Start 04/10/18 at 09:00; Stop 04/14/18 at 16:40; Status DC Olanzapine (ZyPREXA) 10 mg QHS PO Last administered on 04/13/18at 20:08; Start 04/10/18 at 21:00; Stop 04/14/18 at 16:40; Status DC Rivastigmine (Exelon) 1 patch DAILY TD Last administered on 04/16/18at 07:54; Start 04/10/18 at 09:00; Stop 04/16/18 at 11:15; Status DC Vitamin D (Vitamin D3) 50,000 unit WEEKLY PO Last administered on 04/17/18at 10 :09; Start 04/10/18 at 16:00 Quetiapine Fumarate (SEROquel) 25 mg BIDWBKFT/TERENCE PO Last administered on 04/18at 12:47; Start 04/15/18 at 08:00 Duloxetine HCl (Cymbalta) 60 mg HS PO Last administered on 04/18/18at 19:49; Start 04/16/18 at 21:00 Rivastigmine (Exelon) 1 patch DAILY TD Last administered on 04/18/18at 08:45; Start 04/17/18 at 09:00 Active Scripts Active Reported Voltaren (Diclofenac Sodium) 100 Gm Gel..gram. 4 Gm TP PRN BID PRN Vitamin C (Ascorbic Acid) 500 Mg Tablet 500 Mg PO BID Tylenol (Acetaminophen) 325 Mg Tablet 650 Mg PO TID EXELON 4.6mg/24hr (Rivastigmine) 1 Each Patch.td24 1 Patch TD DAILY Olanzapine 5 Mg Tablet 5 Mg PO DAILY Olanzapine 10 Mg Tablet 10 Mg PO QHS Namenda (Memantine Hcl) 10 Mg Tablet 10 Mg PO BID Levothyroxine Sodium 100 Mcg Tablet 100 Mcg PO DAILYAC Lactulose 10 Gm/15 Ml Solution 20 Gm PO PRN Q12HR PRN Cymbalta (Duloxetine Hcl) 60 Mg Capsule. 60 Mg PO DAILY Cymbalta (Duloxetine Hcl) 30 Mg Capsule. 30 Mg PO QHS Calcium 500 + Vit D 200 Tablet (Calcium Carbonate/Vitamin D3) 1 Each Tablet 1 Tab PO BID Aspirin Ec (Aspirin) 325 Mg Tablet. 325 Mg PO DAILY Tylenol (Acetaminophen) 325 Mg Tablet 650 Mg PO PRN Q4HRS PRN I have reviewed the current psychotropics carefully including drug interactions. Risk benefit ratio favors no change other than as noted in my dictated progress note. Diagnosis: Problems: (1) Mental status change resolved (2) Confusion (3) Depression (4) Vascular dementia with delusions (5) Alzheimer's dementia AUGIE SANCHEZ MD Apr 18, 2018 21:59
[2018-04-19] MEDS: LEVOTHYROXINE 100 MCG TABLET PO SCH (05:17)
[2018-04-19 06:46] VITALS: BP 131/62
[2018-04-19] MEDS: ASPIRIN ENTERIC COATED 325 MG TABLET.DR. PO SCH (08:27)
[2018-04-19] MEDS: CALCIUM CARB/VIT D3 500/200 TABLET PO SCH ×2 (08:27→12:46)
[2018-04-19] MEDS: ACETAMINOPHEN 325 MG TABLET PO SCH ×3 (08:28→20:46)
[2018-04-19] MEDS: QUEtiapine 25 MG TABLET. PO SCH ×2 (08:28→12:46)
[2018-04-19] MEDS: RIVASTIGMINE 9.5MG PATCH. TD SCH (08:28)
[2018-04-19] MEDS: ASCORBIC ACID 500 MG TABLET PO SCH ×2 (08:28→20:46)
[2018-04-19] MEDS: MEMANTINE 10 MG TABLET. PO SCH ×2 (08:28→20:46)
--- NOTE | 2018-04-19 13:33 | PN ---
DATE: 04/17/2018 PSYCHIATRIC PROGRESS NOTE This is a late entry, date of service 04/17/2018, covers elements not covered in my initial note. SUBJECTIVE: The patient slept 6-1/2 hours previous evening. She takes a nap off and on during the day, somewhat dehydrated. We will defer to Dr. Porras. No yelling, no hallucinations noted. She is quite confused. REVIEW OF SYSTEMS: Ambulation impaired, in a Broda chair. No CV, , pulmonary, eye, ENT system symptoms on review. Reliability poor. MENTAL STATUS EXAM: Oriented to herself. Insight, judgment, recent and remote memory, attention, concentration, fund of knowledge poor, consistent with her diagnoses mentioned in my initial note. PLAN: No change from initial note. We have changed the Cymbalta to 60 mg at bedtime, increase the Exelon patch to 9.5 mg a day. Rest unchanged for now, Seroquel 25 mg b.i.d., Namenda 10 b.i.d. MAN Alva SANCHEZ MD DR: JESUS/mateo JOB#: [id number] / [id number]
--- NOTE | 2018-04-19 13:36 | PN ---
DATE: 04/18/2018 PSYCHIATRIC PROGRESS NOTE This is a late entry, 04/18/2018, covers elements not covered in my initial note. SUBJECTIVE: I met with the patient in the evening. The patient takes her medications crushed, slept 6-1/2 hours previous night, remains psychotic, talking about going to take the baby down. REVIEW OF SYSTEMS: Ambulation impaired, in Broda chair. No CV, , pulmonary, eye, ENT system symptoms on review. Reliability poor. MENTAL STATUS EXAM: Oriented to herself. Insight, judgment, recent and remote memory, attention, concentration, fund of knowledge poor, consistent with her diagnoses mentioned in my initial note. PLAN: No change from initial note. We will maintain Cymbalta 60 mg at bedtime, Seroquel 25 b.i.d., Exelon patch 9.5 mg daily, Namenda 10 b.i.d. MAN Alva SANCHEZ MD DR: JESUS/mateo JOB#: [id number] / [id number]
[2018-04-19 16:09] VITALS: BP 103/70
[2018-04-19] MEDS: DULoxetine HCL 60 MG CAPSULE.DR PO SCH (20:46)
--- NOTE | 2018-04-19 22:47 | PDOC ---
Exam Note: Adirano Note: Please also refer to the separate dictated note~for this date of service dictated separately.~Patient seen individually. Discussed the patient with Nursing staff reviewed the chart.~Reviewed interim history and current functioning. Reviewed vital signs,~Labs/ Radiology~and current medications noted below. Continue current treatment with the changes noted in the dictated addendum note Assessment: Vital Signs: Vital Signs Date Time Temp Pulse Resp B/P (MAP) Pulse Ox O2 Delivery O2 Flow Rate FiO2 04/19/18 16:09 98.2 82 19 103/70 (81) 95 04/19/18 06:46 Room Air I&O Intake and Output 04/19/18 07:01 Intake Total 460 ml Balance 460 ml Intake Oral 460 ml Current Medications: Meds: Current Medications Magnesium Hydroxide (Milk Of Magnesia) 2,400 mg 1X ONCE PO ; Start 04/10/18 at 04:00; Stop 04/10/18 at 05:06; Status DC Acetaminophen (Tylenol) 650 mg PRN Q6HRS PRN PO PAIN / TEMP; Start 04/10/18 at 04:15; Status UNV Multi-Ingredient Ointment (Analgesic Cosby) 1 adriana PRN QID PRN TP MUSCLE PAIN; Start 04/10/18 at 04:15 Al Hydroxide/Mg Hydroxide (Mylanta Plus Xs) 15 ml PRN AFTMEALHC PRN PO DYSPEPSIA; Start 04/10/18 at 04:15 Magnesium Hydroxide (Milk Of Magnesia) 2,400 mg PRN QHS PRN PO CONSTIPATION; Start 04/10/18 at 04:15 Acetaminophen (Tylenol) 650 mg PRN Q4HRS PRN PO PAIN / TEMP; Start 04/10/18 at 05:00 Acetaminophen (Tylenol) 650 mg TID PO Last administered on 04/19/18at 20:46; Start 04/10/18 at 09:00 Ascorbic Acid (Vitamin C) 500 mg BID PO Last administered on 04/19/18at 20:46; Start 04/10/18 at 09:00 Aspirin (Aspirin Enteric Coated) 325 mg DAILYWBKFT PO Last administered on at 08:27; Start 04/10/18 at 08:00 Calcium/Vitamin D (Oscal D 500mg/ 200uts) 1 tab BIDWMEALS PO Last administered on 04/19/18at 12:46; Start 04/10/18 at 08:00 Diclofenac Sodium (Voltaren) 4 adriana PRN BID PRN TP PAIN; Start 04/10/18 at 05: 00 Levothyroxine Sodium (Synthroid) 100 mcg DAILY06 PO Last administered on at 05:17; Start 04/10/18 at 06:00 Lactulose (Lactulose) 20 gm PRN Q12HR PRN PO CONSTIPATION; Start 04/10/18 at 05:00 Duloxetine HCl (Cymbalta) 30 mg QHS PO Last administered on 04/15/18at 19:39; Start 04/10/18 at 21:00; Stop 04/16/18 at 11:14; Status DC Duloxetine HCl (Cymbalta) 60 mg DAILY PO Last administered on 04/16/18at 07:54 ; Start 04/10/18 at 09:00; Stop 04/16/18 at 11:14; Status DC Memantine (Namenda) 10 mg BID PO Last administered on 04/19/18at 20:46; Start 04/10/18 at 09:00 Olanzapine (ZyPREXA) 5 mg DAILY PO Last administered on 04/14/18at 08:10; Start 04/10/18 at 09:00; Stop 04/14/18 at 16:40; Status DC Olanzapine (ZyPREXA) 10 mg QHS PO Last administered on 04/13/18at 20:08; Start 04/10/18 at 21:00; Stop 04/14/18 at 16:40; Status DC Rivastigmine (Exelon) 1 patch DAILY TD Last administered on 04/16/18at 07:54; Start 04/10/18 at 09:00; Stop 04/16/18 at 11:15; Status DC Vitamin D (Vitamin D3) 50,000 unit WEEKLY PO Last administered on 04/17/18at 10 :09; Start 04/10/18 at 16:00 Quetiapine Fumarate (SEROquel) 25 mg BIDWBKFT/TERENCE PO Last administered on 04/19at 12:46; Start 04/15/18 at 08:00 Duloxetine HCl (Cymbalta) 60 mg HS PO Last administered on 04/19/18at 20:46; Start 04/16/18 at 21:00 Rivastigmine (Exelon) 1 patch DAILY TD Last administered on 04/19/18at 08:28; Start 04/17/18 at 09:00 Active Scripts Active Reported Voltaren (Diclofenac Sodium) 100 Gm Gel..gram. 4 Gm TP PRN BID PRN Vitamin C (Ascorbic Acid) 500 Mg Tablet 500 Mg PO BID Tylenol (Acetaminophen) 325 Mg Tablet 650 Mg PO TID EXELON 4.6mg/24hr (Rivastigmine) 1 Each Patch.td24 1 Patch TD DAILY Olanzapine 5 Mg Tablet 5 Mg PO DAILY Olanzapine 10 Mg Tablet 10 Mg PO QHS Namenda (Memantine Hcl) 10 Mg Tablet 10 Mg PO BID Levothyroxine Sodium 100 Mcg Tablet 100 Mcg PO DAILYAC Lactulose 10 Gm/15 Ml Solution 20 Gm PO PRN Q12HR PRN Cymbalta (Duloxetine Hcl) 60 Mg Capsule. 60 Mg PO DAILY Cymbalta (Duloxetine Hcl) 30 Mg Capsule. 30 Mg PO QHS Calcium 500 + Vit D 200 Tablet (Calcium Carbonate/Vitamin D3) 1 Each Tablet 1 Tab PO BID Aspirin Ec (Aspirin) 325 Mg Tablet. 325 Mg PO DAILY Tylenol (Acetaminophen) 325 Mg Tablet 650 Mg PO PRN Q4HRS PRN I have reviewed the current psychotropics carefully including drug interactions. Risk benefit ratio favors no change other than as noted in my dictated progress note. Diagnosis: Problems: (1) Mental status change resolved (2) Confusion (3) Depression (4) Vascular dementia with delusions (5) Alzheimer's dementia AUGIE SANCHEZ MD Apr 19, 2018 22:47
[2018-04-20] MEDS: LEVOTHYROXINE 100 MCG TABLET PO SCH (05:19)
[2018-04-20 06:10] VITALS: BP 135/84
[2018-04-20] MEDS: ASCORBIC ACID 500 MG TABLET PO SCH ×2 (07:59→20:39)
[2018-04-20] MEDS: CALCIUM CARB/VIT D3 500/200 TABLET PO SCH ×2 (07:59→16:52)
[2018-04-20] MEDS: ASPIRIN ENTERIC COATED 325 MG TABLET.DR. PO SCH (07:59)
[2018-04-20] MEDS: ACETAMINOPHEN 325 MG TABLET PO SCH ×3 (07:59→20:39)
[2018-04-20] MEDS: RIVASTIGMINE 9.5MG PATCH. TD SCH (08:00)
[2018-04-20] MEDS: MEMANTINE 10 MG TABLET. PO SCH ×2 (08:00→20:39)
[2018-04-20] MEDS: QUEtiapine 25 MG TABLET. PO SCH ×2 (08:00→12:50)
[2018-04-20 16:05] VITALS: BP 134/81
--- NOTE | 2018-04-20 18:50 | PDOC ---
Exam Note: Adriano Note: Please also refer to the separate dictated note~for this date of service dictated separately.~Patient seen individually. Discussed the patient with Nursing staff reviewed the chart.~Reviewed interim history and current functioning. Reviewed vital signs,~Labs/ Radiology~and current medications noted below. Continue current treatment with the changes noted in the dictated addendum note Assessment: Vital Signs: Vital Signs Date Time Temp Pulse Resp B/P (MAP) Pulse Ox O2 Delivery O2 Flow Rate FiO2 04/20/18 16:05 97.3 76 18 134/81 (98) 97 Room Air I&O Intake and Output 04/20/18 07:01 Intake Total 840 ml Balance 840 ml Intake Oral 840 ml Current Medications: Meds: Current Medications Magnesium Hydroxide (Milk Of Magnesia) 2,400 mg 1X ONCE PO ; Start 04/10/18 at 04:00; Stop 04/10/18 at 05:06; Status DC Acetaminophen (Tylenol) 650 mg PRN Q6HRS PRN PO PAIN / TEMP; Start 04/10/18 at 04:15; Status UNV Multi-Ingredient Ointment (Analgesic Colon) 1 adriana PRN QID PRN TP MUSCLE PAIN; Start 04/10/18 at 04:15 Al Hydroxide/Mg Hydroxide (Mylanta Plus Xs) 15 ml PRN AFTMEALHC PRN PO DYSPEPSIA; Start 04/10/18 at 04:15 Magnesium Hydroxide (Milk Of Magnesia) 2,400 mg PRN QHS PRN PO CONSTIPATION; Start 04/10/18 at 04:15 Acetaminophen (Tylenol) 650 mg PRN Q4HRS PRN PO PAIN / TEMP; Start 04/10/18 at 05:00 Acetaminophen (Tylenol) 650 mg TID PO Last administered on 04/20/18at 15:13; Start 04/10/18 at 09:00 Ascorbic Acid (Vitamin C) 500 mg BID PO Last administered on 04/20/18at 07:59; Start 04/10/18 at 09:00 Aspirin (Aspirin Enteric Coated) 325 mg DAILYWBKFT PO Last administered on at 07:59; Start 04/10/18 at 08:00 Calcium/Vitamin D (Oscal D 500mg/ 200uts) 1 tab BIDWMEALS PO Last administered on 04/20/18at 16:52; Start 04/10/18 at 08:00 Diclofenac Sodium (Voltaren) 4 adriana PRN BID PRN TP PAIN; Start 04/10/18 at 05: 00 Levothyroxine Sodium (Synthroid) 100 mcg DAILY06 PO Last administered on at 05:19; Start 04/10/18 at 06:00 Lactulose (Lactulose) 20 gm PRN Q12HR PRN PO CONSTIPATION; Start 04/10/18 at 05:00 Duloxetine HCl (Cymbalta) 30 mg QHS PO Last administered on 04/15/18at 19:39; Start 04/10/18 at 21:00; Stop 04/16/18 at 11:14; Status DC Duloxetine HCl (Cymbalta) 60 mg DAILY PO Last administered on 04/16/18at 07:54 ; Start 04/10/18 at 09:00; Stop 04/16/18 at 11:14; Status DC Memantine (Namenda) 10 mg BID PO Last administered on 04/20/18at 08:00; Start 04/10/18 at 09:00 Olanzapine (ZyPREXA) 5 mg DAILY PO Last administered on 04/14/18at 08:10; Start 04/10/18 at 09:00; Stop 04/14/18 at 16:40; Status DC Olanzapine (ZyPREXA) 10 mg QHS PO Last administered on 04/13/18at 20:08; Start 04/10/18 at 21:00; Stop 04/14/18 at 16:40; Status DC Rivastigmine (Exelon) 1 patch DAILY TD Last administered on 04/16/18at 07:54; Start 04/10/18 at 09:00; Stop 04/16/18 at 11:15; Status DC Vitamin D (Vitamin D3) 50,000 unit WEEKLY PO Last administered on 04/17/18at 10 :09; Start 04/10/18 at 16:00 Quetiapine Fumarate (SEROquel) 25 mg BIDWBKFT/ PO Last administered on 04/20at 12:50; Start 04/15/18 at 08:00 Duloxetine HCl (Cymbalta) 60 mg HS PO Last administered on 04/19/18at 20:46; Start 04/16/18 at 21:00 Rivastigmine (Exelon) 1 patch DAILY TD Last administered on 04/20/18at 08:00; Start 04/17/18 at 09:00 Active Scripts Active Reported Voltaren (Diclofenac Sodium) 100 Gm Gel..gram. 4 Gm TP PRN BID PRN Vitamin C (Ascorbic Acid) 500 Mg Tablet 500 Mg PO BID Tylenol (Acetaminophen) 325 Mg Tablet 650 Mg PO TID EXELON 4.6mg/24hr (Rivastigmine) 1 Each Patch.td24 1 Patch TD DAILY Olanzapine 5 Mg Tablet 5 Mg PO DAILY Olanzapine 10 Mg Tablet 10 Mg PO QHS Namenda (Memantine Hcl) 10 Mg Tablet 10 Mg PO BID Levothyroxine Sodium 100 Mcg Tablet 100 Mcg PO DAILYAC Lactulose 10 Gm/15 Ml Solution 20 Gm PO PRN Q12HR PRN Cymbalta (Duloxetine Hcl) 60 Mg Capsule. 60 Mg PO DAILY Cymbalta (Duloxetine Hcl) 30 Mg Capsule. 30 Mg PO QHS Calcium 500 + Vit D 200 Tablet (Calcium Carbonate/Vitamin D3) 1 Each Tablet 1 Tab PO BID Aspirin Ec (Aspirin) 325 Mg Tablet. 325 Mg PO DAILY Tylenol (Acetaminophen) 325 Mg Tablet 650 Mg PO PRN Q4HRS PRN I have reviewed the current psychotropics carefully including drug interactions. Risk benefit ratio favors no change other than as noted in my dictated progress note. Diagnosis: Problems: (1) Mental status change resolved (2) Confusion (3) Depression (4) Vascular dementia with delusions (5) Alzheimer's dementia AUGIE SANCHEZ MD Apr 20, 2018 18:50
[2018-04-20] MEDS: DULoxetine HCL 60 MG CAPSULE.DR PO SCH (20:39)
[2018-04-21 05:25] VITALS: BP 146/71
[2018-04-21] MEDS: LEVOTHYROXINE 100 MCG TABLET PO SCH (05:49)
[2018-04-21] MEDS: ASPIRIN ENTERIC COATED 325 MG TABLET.DR. PO SCH (07:44)
[2018-04-21] MEDS: ACETAMINOPHEN 325 MG TABLET PO SCH ×3 (07:46→19:03)
[2018-04-21] MEDS: MEMANTINE 10 MG TABLET. PO SCH ×2 (07:46→19:03)
[2018-04-21] MEDS: QUEtiapine 25 MG TABLET. PO SCH ×2 (07:46→11:39)
[2018-04-21] MEDS: ASCORBIC ACID 500 MG TABLET PO SCH ×2 (07:46→19:04)
[2018-04-21] MEDS: CALCIUM CARB/VIT D3 500/200 TABLET PO SCH ×2 (07:47→16:50)
[2018-04-21] MEDS: RIVASTIGMINE 9.5MG PATCH. TD SCH (07:47)
[2018-04-21 16:35] VITALS: BP 136/77
--- NOTE | 2018-04-21 16:44 | PN ---
DATE: 04/20/2018 PSYCHIATRIC PROGRESS NOTE This late entry 04/20/2018 covers elements not covered in my initial note. SUBJECTIVE: I met with the patient in the evening. The patient slept 7-1/2 hours previous night. The patient remains confused, compliant with her medications, less aggressive, disruptive, still psychotic and she was hallucinating and delusional the previous evening per nursing report and talking about being in the "[place] [place]." REVIEW OF SYSTEMS: Ambulation impaired, in a Broda chair. No CV, , pulmonary, eye, ENT system symptoms on review. Reliability poor. MENTAL STATUS EXAM: Oriented to herself. Insight, judgment, recent and remote memory, attention, concentration, fund of knowledge poor, consistent with her diagnosis mentioned in my initial note. PLAN: No change from initial note. May need to increase Seroquel gradually, but for now, we will leave it unchanged. AUGIE SANCHEZ MD DR: JESUS/mateo JOB#: [id number] / [id number]
[2018-04-21 16:48] VITALS: BP 136/77
--- NOTE | 2018-04-21 16:48 | PN ---
DATE: 04/19/2018 This late entry 04/19/2018 covers elements not covered in my initial note. SUBJECTIVE: I met with the patient in the evening. The patient slept 7-1/4 hours previous night. She remains confused, but previous evening, she was extremely psychotic, paranoid, believes that nursing staff had stolen her baby. She is restless in groups, paranoid. Speech is word salad. REVIEW OF SYSTEMS: Ambulation impaired in Bro[place]. No CV, , pulmonary, eye, ENT system symptoms on review. Reliability poor. MENTAL STATUS EXAM: Oriented to herself. Insight, judgment, recent and remote memory, attention, concentration, fund of knowledge poor, consistent with her diagnosis mentioned in my initial note. PLAN: No change from initial note. MAN Alva SANCHEZ MD DR: JESUS/mateo JOB#: [id number] / [id number]
--- NOTE | 2018-04-21 18:58 | PDOC ---
Exam Note: Adriano Note: Please also refer to the separate dictated note~for this date of service dictated separately.~Patient seen individually. Discussed the patient with Nursing staff reviewed the chart.~Reviewed interim history and current functioning. Reviewed vital signs,~Labs/ Radiology~and current medications noted below. Continue current treatment with the changes noted in the dictated addendum note Assessment: Vital Signs: Vital Signs Date Time Temp Pulse Resp B/P (MAP) Pulse Ox O2 Delivery O2 Flow Rate FiO2 04/21/18 16:48 97.8 80 18 136/77 (96) 96 04/21/18 05:25 Room Air I&O Intake and Output 04/21/18 07:01 Intake Total 840 ml Balance 840 ml Intake Oral 840 ml Current Medications: Meds: Current Medications Magnesium Hydroxide (Milk Of Magnesia) 2,400 mg 1X ONCE PO ; Start 04/10/18 at 04:00; Stop 04/10/18 at 05:06; Status DC Acetaminophen (Tylenol) 650 mg PRN Q6HRS PRN PO PAIN / TEMP; Start 04/10/18 at 04:15; Status UNV Multi-Ingredient Ointment (Analgesic [place]) 1 adriana PRN QID PRN TP MUSCLE PAIN; Start 04/10/18 at 04:15 Al Hydroxide/Mg Hydroxide (Mylanta Plus Xs) 15 ml PRN AFTMEALHC PRN PO DYSPEPSIA; Start 04/10/18 at 04:15 Magnesium Hydroxide (Milk Of Magnesia) 2,400 mg PRN QHS PRN PO CONSTIPATION; Start 04/10/18 at 04:15 Acetaminophen (Tylenol) 650 mg PRN Q4HRS PRN PO PAIN / TEMP; Start 04/10/18 at 05:00 Acetaminophen (Tylenol) 650 mg TID PO Last administered on 04/21/18at 14:22; Start 04/10/18 at 09:00 Ascorbic Acid (Vitamin C) 500 mg BID PO Last administered on 04/21/18at 07:46; Start 04/10/18 at 09:00 Aspirin (Aspirin Enteric Coated) 325 mg DAILYWBKFT PO Last administered on at 07:44; Start 04/10/18 at 08:00 Calcium/Vitamin D (Oscal D 500mg/ 200uts) 1 tab BIDWMEALS PO Last administered on 04/21/18 16:50; Start 04/10/18 at 08:00 Diclofenac Sodium (Voltaren) 4 adriana PRN BID PRN TP PAIN; Start 04/10/18 at 05: 00 Levothyroxine Sodium (Synthroid) 100 mcg DAILY06 PO Last administered on at 05:49; Start 04/10/18 at 06:00 Lactulose (Lactulose) 20 gm PRN Q12HR PRN PO CONSTIPATION; Start 04/10/18 at 05:00 Duloxetine HCl (Cymbalta) 30 mg QHS PO Last administered on 04/15/18at 19:39; Start 04/10/18 at 21:00; Stop 04/16/18 at 11:14; Status DC Duloxetine HCl (Cymbalta) 60 mg DAILY PO Last administered on 04/16/18at 07:54 ; Start 04/10/18 at 09:00; Stop 04/16/18 at 11:14; Status DC Memantine (Namenda) 10 mg BID PO Last administered on 04/21/18at 07:46; Start 04/10/18 at 09:00 Olanzapine (ZyPREXA) 5 mg DAILY PO Last administered on 04/14/18at 08:10; Start 04/10/18 at 09:00; Stop 04/14/18 at 16:40; Status DC Olanzapine (ZyPREXA) 10 mg QHS PO Last administered on 04/13/18at 20:08; Start 04/10/18 at 21:00; Stop 04/14/18 at 16:40; Status DC Rivastigmine (Exelon) 1 patch DAILY TD Last administered on 04/16/18 07:54; Start 04/10/18 at 09:00; Stop 04/16/18 at 11:15; Status DC Vitamin D (Vitamin D3) 50,000 unit WEEKLY PO Last administered on 04/17/18at 10 :09; Start 04/10/18 at 16:00 Quetiapine Fumarate (SEROquel) 25 mg BIDWBKFT/TERENCE PO Last administered on 04/21 11:39; Start 04/15/18 at 08:00 Duloxetine HCl (Cymbalta) 60 mg HS PO Last administered on 04/20/18at 20:39; Start 04/16/18 at 21:00 Rivastigmine (Exelon) 1 patch DAILY TD Last administered on 04/21/18at 07:47; Start 04/17/18 at 09:00 Active Scripts Active Reported Voltaren (Diclofenac Sodium) 100 Gm Gel..gram. 4 Gm TP PRN BID PRN Vitamin C (Ascorbic Acid) 500 Mg Tablet 500 Mg PO BID Tylenol (Acetaminophen) 325 Mg Tablet 650 Mg PO TID EXELON 4.6mg/24hr (Rivastigmine) 1 Each Patch.td24 1 Patch TD DAILY Olanzapine 5 Mg Tablet 5 Mg PO DAILY Olanzapine 10 Mg Tablet 10 Mg PO QHS Namenda (Memantine Hcl) 10 Mg Tablet 10 Mg PO BID Levothyroxine Sodium 100 Mcg Tablet 100 Mcg PO DAILYAC Lactulose 10 Gm/15 Ml Solution 20 Gm PO PRN Q12HR PRN Cymbalta (Duloxetine Hcl) 60 Mg Capsule. 60 Mg PO DAILY Cymbalta (Duloxetine Hcl) 30 Mg Capsule. 30 Mg PO QHS Calcium 500 + Vit D 200 Tablet (Calcium Carbonate/Vitamin D3) 1 Each Tablet 1 Tab PO BID Aspirin Ec (Aspirin) 325 Mg Tablet. 325 Mg PO DAILY Tylenol (Acetaminophen) 325 Mg Tablet 650 Mg PO PRN Q4HRS PRN I have reviewed the current psychotropics carefully including drug interactions. Risk benefit ratio favors no change other than as noted in my dictated progress note. Diagnosis: Problems: (1) Mental status change resolved (2) Confusion (3) Depression (4) Vascular dementia with delusions (5) Alzheimer's dementia AUGIE SANCHEZ MD Apr 21, 2018 18:58
[2018-04-21] MEDS: DULoxetine HCL 60 MG CAPSULE.DR PO SCH (19:04)
[2018-04-22 05:59] VITALS: BP 128/75
[2018-04-22] MEDS: LEVOTHYROXINE 100 MCG TABLET PO SCH (06:19)
[2018-04-22] MEDS: RIVASTIGMINE 9.5MG PATCH. TD SCH (07:50)
[2018-04-22] MEDS: QUEtiapine 25 MG TABLET. PO SCH ×2 (07:50→12:44)
[2018-04-22] MEDS: ACETAMINOPHEN 325 MG TABLET PO SCH ×3 (07:50→19:46)
[2018-04-22] MEDS: ASCORBIC ACID 500 MG TABLET PO SCH ×2 (07:50→19:46)
[2018-04-22] MEDS: ASPIRIN ENTERIC COATED 325 MG TABLET.DR. PO SCH (07:50)
[2018-04-22] MEDS: MEMANTINE 10 MG TABLET. PO SCH ×2 (07:50→19:46)
[2018-04-22] MEDS: CALCIUM CARB/VIT D3 500/200 TABLET PO SCH ×2 (07:50→17:47)
[2018-04-22 16:44] VITALS: BP 125/75
[2018-04-22] MEDS: DULoxetine HCL 60 MG CAPSULE.DR PO SCH (19:46)
--- NOTE | 2018-04-22 22:07 | PN ---
DATE: 04/21/2018 PSYCHIATRIC PROGRESS NOTE This late entry 04/21/2018 covers elements not covered in my initial note. SUBJECTIVE: I met with the patient in the evening. The patient slept 6-1/2 hours previous night. She remains quite confused, but otherwise appropriate, less psychotic. REVIEW OF SYSTEMS: Ambulation impaired, in Broda chair. No CV, , pulmonary, eye, ENT system symptoms on review. Reliability poor. MENTAL STATUS EXAM: Oriented to herself. Insight, judgment, recent and remote memory, attention, concentration, fund of knowledge poor, consistent with her diagnosis mentioned in my initial note. PLAN: No change from initial note. AUGIE SANCHEZ MD DR: JESUS/mateo JOB#: [id number] / [id number]
--- NOTE | 2018-04-22 22:44 | PDOC ---
Exam Note: Adriano Note: Please also refer to the separate dictated note~for this date of service dictated separately.~Patient seen individually. Discussed the patient with Nursing staff reviewed the chart.~Reviewed interim history and current functioning. Reviewed vital signs,~Labs/ Radiology~and current medications noted below. Continue current treatment with the changes noted in the dictated addendum note Assessment: Vital Signs: Vital Signs Date Time Temp Pulse Resp B/P (MAP) Pulse Ox O2 Delivery O2 Flow Rate FiO2 04/22/18 16:44 98.2 76 18 125/75 (92) 95 04/21/18 05:25 Room Air I&O Intake and Output 04/22/18 07:01 Intake Total 960 ml Balance 960 ml Intake Oral 960 ml # Bowel Movements 1 Current Medications: Meds: Current Medications Magnesium Hydroxide (Milk Of Magnesia) 2,400 mg 1X ONCE PO ; Start 04/10/18 at 04:00; Stop 04/10/18 at 05:06; Status DC Acetaminophen (Tylenol) 650 mg PRN Q6HRS PRN PO PAIN / TEMP; Start 04/10/18 at 04:15; Status UNV Multi-Ingredient Ointment (Analgesic [place]) 1 adriana PRN QID PRN TP MUSCLE PAIN; Start 04/10/18 at 04:15 Al Hydroxide/Mg Hydroxide (Mylanta Plus Xs) 15 ml PRN AFTMEALHC PRN PO DYSPEPSIA; Start 04/10/18 at 04:15 Magnesium Hydroxide (Milk Of Magnesia) 2,400 mg PRN QHS PRN PO CONSTIPATION; Start 04/10/18 at 04:15 Acetaminophen (Tylenol) 650 mg PRN Q4HRS PRN PO PAIN / TEMP; Start 04/10/18 at 05:00 Acetaminophen (Tylenol) 650 mg TID PO Last administered on 04/22/18at 19:46; Start 04/10/18 at 09:00 Ascorbic Acid (Vitamin C) 500 mg BID PO Last administered on 04/22/18at 19:46; Start 04/10/18 at 09:00 Aspirin (Aspirin Enteric Coated) 325 mg DAILYWBKFT PO Last administered on at 07:50; Start 04/10/18 at 08:00 Calcium/Vitamin D (Oscal D 500mg/ 200uts) 1 tab BIDWMEALS PO Last administered on 04/22/18at 17:47; Start 04/10/18 at 08:00 Diclofenac Sodium (Voltaren) 4 adriana PRN BID PRN TP PAIN; Start 04/10/18 at 05: 00 Levothyroxine Sodium (Synthroid) 100 mcg DAILY06 PO Last administered on at 06:19; Start 04/10/18 at 06:00 Lactulose (Lactulose) 20 gm PRN Q12HR PRN PO CONSTIPATION; Start 04/10/18 at 05:00 Duloxetine HCl (Cymbalta) 30 mg QHS PO Last administered on 04/15/18at 19:39; Start 04/10/18 at 21:00; Stop 04/16/18 at 11:14; Status DC Duloxetine HCl (Cymbalta) 60 mg DAILY PO Last administered on 04/16/18at 07:54 ; Start 04/10/18 at 09:00; Stop 04/16/18 at 11:14; Status DC Memantine (Namenda) 10 mg BID PO Last administered on 04/22/18at 19:46; Start 04/10/18 at 09:00 Olanzapine (ZyPREXA) 5 mg DAILY PO Last administered on 04/14/18at 08:10; Start 04/10/18 at 09:00; Stop 04/14/18 at 16:40; Status DC Olanzapine (ZyPREXA) 10 mg QHS PO Last administered on 04/13/18at 20:08; Start 04/10/18 at 21:00; Stop 04/14/18 at 16:40; Status DC Rivastigmine (Exelon) 1 patch DAILY TD Last administered on 04/16/18at 07:54; Start 04/10/18 at 09:00; Stop 04/16/18 at 11:15; Status DC Vitamin D (Vitamin D3) 50,000 unit WEEKLY PO Last administered on 04/17/18at 10 :09; Start 04/10/18 at 16:00 Quetiapine Fumarate (SEROquel) 25 mg BIDWBKFT/TERENCE PO Last administered on 04/22at 12:44; Start 04/15/18 at 08:00 Duloxetine HCl (Cymbalta) 60 mg HS PO Last administered on 04/22/18at 19:46; Start 04/16/18 at 21:00 Rivastigmine (Exelon) 1 patch DAILY TD Last administered on 04/22/18at 07:50; Start 04/17/18 at 09:00 Active Scripts Active Reported Voltaren (Diclofenac Sodium) 100 Gm Gel..gram. 4 Gm TP PRN BID PRN Vitamin C (Ascorbic Acid) 500 Mg Tablet 500 Mg PO BID Tylenol (Acetaminophen) 325 Mg Tablet 650 Mg PO TID EXELON 4.6mg/24hr (Rivastigmine) 1 Each Patch.td24 1 Patch TD DAILY Olanzapine 5 Mg Tablet 5 Mg PO DAILY Olanzapine 10 Mg Tablet 10 Mg PO QHS Namenda (Memantine Hcl) 10 Mg Tablet 10 Mg PO BID Levothyroxine Sodium 100 Mcg Tablet 100 Mcg PO DAILYAC Lactulose 10 Gm/15 Ml Solution 20 Gm PO PRN Q12HR PRN Cymbalta (Duloxetine Hcl) 60 Mg Capsule. 60 Mg PO DAILY Cymbalta (Duloxetine Hcl) 30 Mg Capsule. 30 Mg PO QHS Calcium 500 + Vit D 200 Tablet (Calcium Carbonate/Vitamin D3) 1 Each Tablet 1 Tab PO BID Aspirin Ec (Aspirin) 325 Mg Tablet. 325 Mg PO DAILY Tylenol (Acetaminophen) 325 Mg Tablet 650 Mg PO PRN Q4HRS PRN I have reviewed the current psychotropics carefully including drug interactions. Risk benefit ratio favors no change other than as noted in my dictated progress note. Diagnosis: Problems: (1) Mental status change resolved (2) Confusion (3) Depression (4) Vascular dementia with delusions (5) Alzheimer's dementia AUGIE SANCHEZ MD Apr 22, 2018 22:43
[2018-04-23 05:41] VITALS: BP 135/78
[2018-04-23] MEDS: LEVOTHYROXINE 100 MCG TABLET PO SCH (06:26)
[2018-04-23] MEDS: ASCORBIC ACID 500 MG TABLET PO SCH ×2 (08:02→19:34)
[2018-04-23] MEDS: ASPIRIN ENTERIC COATED 325 MG TABLET.DR. PO SCH (08:02)
[2018-04-23] MEDS: RIVASTIGMINE 9.5MG PATCH. TD SCH (08:02)
[2018-04-23] MEDS: QUEtiapine 25 MG TABLET. PO SCH ×2 (08:02→12:51)
[2018-04-23] MEDS: MEMANTINE 10 MG TABLET. PO SCH ×2 (08:03→19:34)
[2018-04-23] MEDS: CALCIUM CARB/VIT D3 500/200 TABLET PO SCH ×2 (08:03→18:26)
[2018-04-23] MEDS: ACETAMINOPHEN 325 MG TABLET PO SCH ×3 (08:03→19:33)
[2018-04-23 16:06] VITALS: BP 99/61
[2018-04-23] MEDS: DULoxetine HCL 60 MG CAPSULE.DR PO SCH (19:33)
--- NOTE | 2018-04-23 22:40 | PDOC ---
Exam Note: Adriano Note: Please also refer to the separate dictated note~for this date of service dictated separately.~Patient seen individually. Discussed the patient with Nursing staff reviewed the chart.~Reviewed interim history and current functioning. Reviewed vital signs,~Labs/ Radiology~and current medications noted below. Continue current treatment with the changes noted in the dictated addendum note Assessment: Vital Signs: Vital Signs Date Time Temp Pulse Resp B/P (MAP) Pulse Ox O2 Delivery O2 Flow Rate FiO2 04/23/18 16:06 97.6 81 18 99/61 (74) 93 04/21/18 05:25 Room Air I&O Intake and Output 04/23/18 07:01 Intake Total 720 ml Balance 720 ml Intake Oral 720 ml Current Medications: Meds: Current Medications Magnesium Hydroxide (Milk Of Magnesia) 2,400 mg 1X ONCE PO ; Start 04/10/18 at 04:00; Stop 04/10/18 at 05:06; Status DC Acetaminophen (Tylenol) 650 mg PRN Q6HRS PRN PO PAIN / TEMP; Start 04/10/18 at 04:15; Status UNV Multi-Ingredient Ointment (Analgesic [place]) 1 adriana PRN QID PRN TP MUSCLE PAIN; Start 04/10/18 at 04:15 Al Hydroxide/Mg Hydroxide (Mylanta Plus Xs) 15 ml PRN AFTMEALHC PRN PO DYSPEPSIA; Start 04/10/18 at 04:15 Magnesium Hydroxide (Milk Of Magnesia) 2,400 mg PRN QHS PRN PO CONSTIPATION; Start 04/10/18 at 04:15 Acetaminophen (Tylenol) 650 mg PRN Q4HRS PRN PO PAIN / TEMP; Start 04/10/18 at 05:00 Acetaminophen (Tylenol) 650 mg TID PO Last administered on 04/23/18at 19:33; Start 04/10/18 at 09:00 Ascorbic Acid (Vitamin C) 500 mg BID PO Last administered on 04/23/18at 19:34; Start 04/10/18 at 09:00 Aspirin (Aspirin Enteric Coated) 325 mg DAILYWBKFT PO Last administered on at 08:02; Start 04/10/18 at 08:00 Calcium/Vitamin D (Oscal D 500mg/ 200uts) 1 tab BIDWMEALS PO Last administered on 04/23/18 18:26; Start 04/10/18 at 08:00 Diclofenac Sodium (Voltaren) 4 adriana PRN BID PRN TP PAIN; Start 04/10/18 at 05: 00 Levothyroxine Sodium (Synthroid) 100 mcg DAILY06 PO Last administered on at 06:26; Start 04/10/18 at 06:00 Lactulose (Lactulose) 20 gm PRN Q12HR PRN PO CONSTIPATION; Start 04/10/18 at 05:00 Duloxetine HCl (Cymbalta) 30 mg QHS PO Last administered on 04/15/18at 19:39; Start 04/10/18 at 21:00; Stop 04/16/18 at 11:14; Status DC Duloxetine HCl (Cymbalta) 60 mg DAILY PO Last administered on 04/16/18at 07:54 ; Start 04/10/18 at 09:00; Stop 04/16/18 at 11:14; Status DC Memantine (Namenda) 10 mg BID PO Last administered on 04/23/18at 19:34; Start 04/10/18 at 09:00 Olanzapine (ZyPREXA) 5 mg DAILY PO Last administered on 04/14/18at 08:10; Start 04/10/18 at 09:00; Stop 04/14/18 at 16:40; Status DC Olanzapine (ZyPREXA) 10 mg QHS PO Last administered on 04/13/18at 20:08; Start 04/10/18 at 21:00; Stop 04/14/18 at 16:40; Status DC Rivastigmine (Exelon) 1 patch DAILY TD Last administered on 04/16/18at 07:54; Start 04/10/18 at 09:00; Stop 04/16/18 at 11:15; Status DC Vitamin D (Vitamin D3) 50,000 unit WEEKLY PO Last administered on 04/17/18at 10 :09; Start 04/10/18 at 16:00 Quetiapine Fumarate (SEROquel) 25 mg BIDWBKFT/TERENCE PO Last administered on 04/23at 12:51; Start 04/15/18 at 08:00 Duloxetine HCl (Cymbalta) 60 mg HS PO Last administered on 04/23/18at 19:33; Start 04/16/18 at 21:00 Rivastigmine (Exelon) 1 patch DAILY TD Last administered on 04/23/18at 08:02; Start 04/17/18 at 09:00 Active Scripts Active Reported Voltaren (Diclofenac Sodium) 100 Gm Gel..gram. 4 Gm TP PRN BID PRN Vitamin C (Ascorbic Acid) 500 Mg Tablet 500 Mg PO BID Tylenol (Acetaminophen) 325 Mg Tablet 650 Mg PO TID EXELON 4.6mg/24hr (Rivastigmine) 1 Each Patch.td24 1 Patch TD DAILY Olanzapine 5 Mg Tablet 5 Mg PO DAILY Olanzapine 10 Mg Tablet 10 Mg PO QHS Namenda (Memantine Hcl) 10 Mg Tablet 10 Mg PO BID Levothyroxine Sodium 100 Mcg Tablet 100 Mcg PO DAILYAC Lactulose 10 Gm/15 Ml Solution 20 Gm PO PRN Q12HR PRN Cymbalta (Duloxetine Hcl) 60 Mg Capsule. 60 Mg PO DAILY Cymbalta (Duloxetine Hcl) 30 Mg Capsule. 30 Mg PO QHS Calcium 500 + Vit D 200 Tablet (Calcium Carbonate/Vitamin D3) 1 Each Tablet 1 Tab PO BID Aspirin Ec (Aspirin) 325 Mg Tablet. 325 Mg PO DAILY Tylenol (Acetaminophen) 325 Mg Tablet 650 Mg PO PRN Q4HRS PRN I have reviewed the current psychotropics carefully including drug interactions. Risk benefit ratio favors no change other than as noted in my dictated progress note. Diagnosis: Problems: (1) Mental status change resolved (2) Confusion (3) Depression (4) Vascular dementia with delusions (5) Alzheimer's dementia AUGIE SANCHEZ MD Apr 23, 2018 22:40
[2018-04-24] MEDS: LEVOTHYROXINE 100 MCG TABLET PO SCH (05:17)
[2018-04-24 05:58] VITALS: BP 113/70
--- NOTE | 2018-04-24 07:43 | PDOC ---
Exam Note: Adriano Note: S/O: This note covers elements not covered in my initial note of 04/22/2018. Met with the patient in the evening. Patient slept seven three quarter hours previous evening. She takes her medications crushed, remains confused, but not aggressive. ROS: Ambulation impaired, in Broda chair. No CV, GI/, Pulmonary, Eye, ENT system symptoms on review. Reliability poor. MSE: Oriented to herself. Insight and judgment, recent and remote memory, attention and concentration, fund of knowledge poor consistent with her diagnosis mentioned in my initial note. Plan: No change from initial note. Assessment: Vital Signs: Vital Signs Date Time Temp Pulse Resp B/P (MAP) Pulse Ox O2 Delivery O2 Flow Rate FiO2 04/24/18 05:58 97.7 76 18 113/70 (84) 96 04/21/18 05:25 Room Air I&O Intake and Output 04/24/18 07:01 Intake Total 720 ml Balance 720 ml Intake Oral 720 ml Current Medications: Meds: Current Medications Magnesium Hydroxide (Milk Of Magnesia) 2,400 mg 1X ONCE PO ; Start 04/10/18 at 04:00; Stop 04/10/18 at 05:06; Status DC Acetaminophen (Tylenol) 650 mg PRN Q6HRS PRN PO PAIN / TEMP; Start 04/10/18 at 04:15; Status UNV Multi-Ingredient Ointment (Analgesic [place]) 1 adriana PRN QID PRN TP MUSCLE PAIN; Start 04/10/18 at 04:15 Al Hydroxide/Mg Hydroxide (Mylanta Plus Xs) 15 ml PRN AFTMEALHC PRN PO DYSPEPSIA; Start 04/10/18 at 04:15 Magnesium Hydroxide (Milk Of Magnesia) 2,400 mg PRN QHS PRN PO CONSTIPATION; Start 04/10/18 at 04:15 Acetaminophen (Tylenol) 650 mg PRN Q4HRS PRN PO PAIN / TEMP; Start 04/10/18 at 05:00 Acetaminophen (Tylenol) 650 mg TID PO Last administered on 04/23/18at 19:33; Start 04/10/18 at 09:00 Ascorbic Acid (Vitamin C) 500 mg BID PO Last administered on 04/23/18at 19:34; Start 04/10/18 at 09:00 Aspirin (Aspirin Enteric Coated) 325 mg DAILYWBKFT PO Last administered on at 08:02; Start 04/10/18 at 08:00 Calcium/Vitamin D (Oscal D 500mg/ 200uts) 1 tab BIDWMEALS PO Last administered on 04/23/18at 18:26; Start 04/10/18 at 08:00 Diclofenac Sodium (Voltaren) 4 adriana PRN BID PRN TP PAIN; Start 04/10/18 at 05: 00 Levothyroxine Sodium (Synthroid) 100 mcg DAILY06 PO Last administered on at 05:17; Start 04/10/18 at 06:00 Lactulose (Lactulose) 20 gm PRN Q12HR PRN PO CONSTIPATION; Start 04/10/18 at 05:00 Duloxetine HCl (Cymbalta) 30 mg QHS PO Last administered on 04/15/18at 19:39; Start 04/10/18 at 21:00; Stop 04/16/18 at 11:14; Status DC Duloxetine HCl (Cymbalta) 60 mg DAILY PO Last administered on 04/16/18at 07:54 ; Start 04/10/18 at 09:00; Stop 04/16/18 at 11:14; Status DC Memantine (Namenda) 10 mg BID PO Last administered on 04/23/18at 19:34; Start 04/10/18 at 09:00 Olanzapine (ZyPREXA) 5 mg DAILY PO Last administered on 04/14/18at 08:10; Start 04/10/18 at 09:00; Stop 04/14/18 at 16:40; Status DC Olanzapine (ZyPREXA) 10 mg QHS PO Last administered on 04/13/18at 20:08; Start 04/10/18 at 21:00; Stop 04/14/18 at 16:40; Status DC Rivastigmine (Exelon) 1 patch DAILY TD Last administered on 04/16/18at 07:54; Start 04/10/18 at 09:00; Stop 04/16/18 at 11:15; Status DC Vitamin D (Vitamin D3) 50,000 unit WEEKLY PO Last administered on 04/17/18at 10 :09; Start 04/10/18 at 16:00 Quetiapine Fumarate (SEROquel) 25 mg BIDWBKFT/TERENCE PO Last administered on 04/23at 12:51; Start 04/15/18 at 08:00 Duloxetine HCl (Cymbalta) 60 mg HS PO Last administered on 04/23/18at 19:33; Start 04/16/18 at 21:00 Rivastigmine (Exelon) 1 patch DAILY TD Last administered on 04/23/18at 08:02; Start 04/17/18 at 09:00 Active Scripts Active Reported Voltaren (Diclofenac Sodium) 100 Gm Gel..gram. 4 Gm TP PRN BID PRN Vitamin C (Ascorbic Acid) 500 Mg Tablet 500 Mg PO BID Tylenol (Acetaminophen) 325 Mg Tablet 650 Mg PO TID EXELON 4.6mg/24hr (Rivastigmine) 1 Each Patch.td24 1 Patch TD DAILY Olanzapine 5 Mg Tablet 5 Mg PO DAILY Olanzapine 10 Mg Tablet 10 Mg PO QHS Namenda (Memantine Hcl) 10 Mg Tablet 10 Mg PO BID Levothyroxine Sodium 100 Mcg Tablet 100 Mcg PO DAILYAC Lactulose 10 Gm/15 Ml Solution 20 Gm PO PRN Q12HR PRN Cymbalta (Duloxetine Hcl) 60 Mg Capsule. 60 Mg PO DAILY Cymbalta (Duloxetine Hcl) 30 Mg Capsule. 30 Mg PO QHS Calcium 500 + Vit D 200 Tablet (Calcium Carbonate/Vitamin D3) 1 Each Tablet 1 Tab PO BID Aspirin Ec (Aspirin) 325 Mg Tablet. 325 Mg PO DAILY Tylenol (Acetaminophen) 325 Mg Tablet 650 Mg PO PRN Q4HRS PRN I have reviewed the current psychotropics carefully including drug interactions. Risk benefit ratio favors no change other than as noted in my dictated progress note. Diagnosis: Problems: (1) Mental status change resolved (2) Confusion (3) Depression (4) Vascular dementia with delusions (5) Alzheimer's dementia AUGIE SANCHEZ MD Apr 24, 2018 07:43
[2018-04-24] MEDS: CALCIUM CARB/VIT D3 500/200 TABLET PO SCH ×2 (08:17→16:43)
[2018-04-24] MEDS: RIVASTIGMINE 9.5MG PATCH. TD SCH (08:17)
[2018-04-24] MEDS: ASCORBIC ACID 500 MG TABLET PO SCH ×2 (08:17→19:45)
[2018-04-24] MEDS: ACETAMINOPHEN 325 MG TABLET PO SCH ×3 (08:17→19:45)
[2018-04-24] MEDS: MEMANTINE 10 MG TABLET. PO SCH ×2 (08:17→19:45)
[2018-04-24] MEDS: ASPIRIN ENTERIC COATED 325 MG TABLET.DR. PO SCH (08:17)
[2018-04-24] MEDS: QUEtiapine 25 MG TABLET. PO SCH ×2 (08:17→12:59)
[2018-04-24] MEDS: CHOLECALCIFEROL (VITAMIN D3) 50,000 UNIT CAPSULE PO SCH (08:20)
[2018-04-24 16:33] VITALS: BP 103/61
[2018-04-24] MEDS: DULoxetine HCL 60 MG CAPSULE.DR PO SCH (19:45)
--- NOTE | 2018-04-24 20:36 | PN ---
DATE: 04/23/2018 PSYCHIATRIC PROGRESS NOTE This late entry 04/23/2018 covers elements not covered in my initial note. SUBJECTIVE: I met with the patient in the evening. The patient slept 8-3/4 hours previous night. She remains in a Broda chair, somewhat withdrawn, intermittently psychotic, but not aggressive or agitated. REVIEW OF SYSTEMS: No CV, , eye, ENT or pulmonary system symptoms on review. Reliability poor. MENTAL STATUS EXAM: Oriented to herself. Insight, judgment, recent and remote memory, attention, concentration, fund of knowledge poor consistent with her diagnosis mentioned in my initial note. IMPRESSION: Major neurocognitive disorder, Alzheimer, vascular with delusion, depression, behavioral disturbance. Rest unchanged. PLAN: No change from initial note. MAN Alva SANCHEZ MD DR: JESUS/mateo JOB#: [id number] / [id number]
--- NOTE | 2018-04-24 22:49 | PDOC ---
Exam Note: Adriano Note: Please also refer to the separate dictated note~for this date of service dictated separately.~Patient seen individually. Discussed the patient with Nursing staff reviewed the chart.~Reviewed interim history and current functioning. Reviewed vital signs,~Labs/ Radiology~and current medications noted below. Continue current treatment with the changes noted in the dictated addendum note Assessment: Vital Signs: Vital Signs Date Time Temp Pulse Resp B/P (MAP) Pulse Ox O2 Delivery O2 Flow Rate FiO2 04/24/18 16:33 97.6 74 16 103/61 (75) 96 Room Air I&O Intake and Output 04/24/18 07:01 Intake Total 720 ml Balance 720 ml Intake Oral 720 ml Current Medications: Meds: Current Medications Magnesium Hydroxide (Milk Of Magnesia) 2,400 mg 1X ONCE PO ; Start 04/10/18 at 04:00; Stop 04/10/18 at 05:06; Status DC Acetaminophen (Tylenol) 650 mg PRN Q6HRS PRN PO PAIN / TEMP; Start 04/10/18 at 04:15; Status UNV Multi-Ingredient Ointment (Analgesic [place]) 1 adriana PRN QID PRN TP MUSCLE PAIN; Start 04/10/18 at 04:15 Al Hydroxide/Mg Hydroxide (Mylanta Plus Xs) 15 ml PRN AFTMEALHC PRN PO DYSPEPSIA; Start 04/10/18 at 04:15 Magnesium Hydroxide (Milk Of Magnesia) 2,400 mg PRN QHS PRN PO CONSTIPATION; Start 04/10/18 at 04:15 Acetaminophen (Tylenol) 650 mg PRN Q4HRS PRN PO PAIN / TEMP; Start 04/10/18 at 05:00 Acetaminophen (Tylenol) 650 mg TID PO Last administered on 04/24/18at 19:45; Start 04/10/18 at 09:00 Ascorbic Acid (Vitamin C) 500 mg BID PO Last administered on 04/24/18 19:45; Start 04/10/18 at 09:00 Aspirin (Aspirin Enteric Coated) 325 mg DAILYWBKFT PO Last administered on at 08:17; Start 04/10/18 at 08:00 Calcium/Vitamin D (Oscal D 500mg/ 200uts) 1 tab BIDWMEALS PO Last administered on 04/24/18at 16:43; Start 04/10/18 at 08:00 Diclofenac Sodium (Voltaren) 4 adriana PRN BID PRN TP PAIN; Start 04/10/18 at 05: 00 Levothyroxine Sodium (Synthroid) 100 mcg DAILY06 PO Last administered on at 05:17; Start 04/10/18 at 06:00 Lactulose (Lactulose) 20 gm PRN Q12HR PRN PO CONSTIPATION; Start 04/10/18 at 05:00 Duloxetine HCl (Cymbalta) 30 mg QHS PO Last administered on 04/15/18at 19:39; Start 04/10/18 at 21:00; Stop 04/16/18 at 11:14; Status DC Duloxetine HCl (Cymbalta) 60 mg DAILY PO Last administered on 04/16/18at 07:54 ; Start 04/10/18 at 09:00; Stop 04/16/18 at 11:14; Status DC Memantine (Namenda) 10 mg BID PO Last administered on 04/24/18at 19:45; Start 04/10/18 at 09:00 Olanzapine (ZyPREXA) 5 mg DAILY PO Last administered on 04/14/18at 08:10; Start 04/10/18 at 09:00; Stop 04/14/18 at 16:40; Status DC Olanzapine (ZyPREXA) 10 mg QHS PO Last administered on 04/13/18at 20:08; Start 04/10/18 at 21:00; Stop 04/14/18 at 16:40; Status DC Rivastigmine (Exelon) 1 patch DAILY TD Last administered on 04/16/18at 07:54; Start 04/10/18 at 09:00; Stop 04/16/18 at 11:15; Status DC Vitamin D (Vitamin D3) 50,000 unit WEEKLY PO Last administered on 04/24/18at 08 :20; Start 04/10/18 at 16:00 Quetiapine Fumarate (SEROquel) 25 mg BIDWBK/ PO Last administered on 04/24at 12:59; Start 04/15/18 at 08:00 Duloxetine HCl (Cymbalta) 60 mg HS PO Last administered on 04/24/18at 19:45; Start 04/16/18 at 21:00 Rivastigmine (Exelon) 1 patch DAILY TD Last administered on 04/24/18at 08:17; Start 04/17/18 at 09:00 Active Scripts Active Reported Voltaren (Diclofenac Sodium) 100 Gm Gel..gram. 4 Gm TP PRN BID PRN Vitamin C (Ascorbic Acid) 500 Mg Tablet 500 Mg PO BID Tylenol (Acetaminophen) 325 Mg Tablet 650 Mg PO TID EXELON 4.6mg/24hr (Rivastigmine) 1 Each Patch.td24 1 Patch TD DAILY Olanzapine 5 Mg Tablet 5 Mg PO DAILY Olanzapine 10 Mg Tablet 10 Mg PO QHS Namenda (Memantine Hcl) 10 Mg Tablet 10 Mg PO BID Levothyroxine Sodium 100 Mcg Tablet 100 Mcg PO DAILYAC Lactulose 10 Gm/15 Ml Solution 20 Gm PO PRN Q12HR PRN Cymbalta (Duloxetine Hcl) 60 Mg Capsule. 60 Mg PO DAILY Cymbalta (Duloxetine Hcl) 30 Mg Capsule. 30 Mg PO QHS Calcium 500 + Vit D 200 Tablet (Calcium Carbonate/Vitamin D3) 1 Each Tablet 1 Tab PO BID Aspirin Ec (Aspirin) 325 Mg Tablet. 325 Mg PO DAILY Tylenol (Acetaminophen) 325 Mg Tablet 650 Mg PO PRN Q4HRS PRN I have reviewed the current psychotropics carefully including drug interactions. Risk benefit ratio favors no change other than as noted in my dictated progress note. Diagnosis: Problems: (1) Mental status change resolved (2) Confusion (3) Depression (4) Vascular dementia with delusions (5) Alzheimer's dementia AUGIE SANCHEZ MD Apr 24, 2018 22:49
[2018-04-25] MEDS: LEVOTHYROXINE 100 MCG TABLET PO SCH (05:05)
[2018-04-25 05:39] VITALS: BP 112/73
[2018-04-25] MEDS: CALCIUM CARB/VIT D3 500/200 TABLET PO SCH ×2 (08:33→13:12)
[2018-04-25] MEDS: MEMANTINE 10 MG TABLET. PO SCH ×2 (08:33→19:55)
[2018-04-25] MEDS: QUEtiapine 25 MG TABLET. PO SCH ×2 (08:33→13:12)
[2018-04-25] MEDS: ASPIRIN ENTERIC COATED 325 MG TABLET.DR. PO SCH (08:33)
[2018-04-25] MEDS: ASCORBIC ACID 500 MG TABLET PO SCH ×2 (08:34→19:55)
[2018-04-25] MEDS: ACETAMINOPHEN 325 MG TABLET PO SCH ×3 (08:34→19:55)
[2018-04-25] MEDS: RIVASTIGMINE 9.5MG PATCH. TD SCH (08:47)
[2018-04-25 09:29] LABS: BASO % 1 % (0-3); EOS # 0.2 x10^3/uL (0.0-0.7); EOS % 2 % (0-3); HEMATOCRIT 28.8 % (36.0-47.0); HEMOGLOBIN 9.2 g/dL (12.0-15.5); LYMPH # 2.1 x10^3/uL (1.0-4.8); LYMPH % 22 % (24-48); MEAN CORPUSCULAR HEMOGLOBIN 29 pg (25-35); MEAN CORPUSCULAR HGB CONC 32 g/dL (31-37); MEAN CORPUSCULAR VOLUME 91 fL (79-100); MONO # 0.6 x10^3/uL (0.0-1.1); MONO % 6 % (0-9); NEUT # 6.7 x10^3uL (1.8-7.7); NEUT % 69 % (31-73); PLATELET COUNT 555 x10^3/uL (140-400); RED BLOOD COUNT 3.16 x10^6/uL (3.50-5.40); RED CELL DISTRIBUTION WIDTH 16.8 % (11.5-14.5); WHITE BLOOD COUNT 9.7 x10^3/uL (4.0-11.0)
[2018-04-25 09:46] LABS: ALBUMIN 2.8 g/dL (3.4-5.0); ALBUMIN/GLOBULIN RATIO 0.6 (1.0-1.7); CALCIUM 9.4 mg/dL (8.5-10.1); GFR 53.5; POTASSIUM 4.3 mmol/L (3.5-5.1); TOTAL BILIRUBIN 0.2 mg/dL (0.2-1.0); TOTAL PROTEIN 7.3 g/dL (6.4-8.2)
[2018-04-25 15:43] VITALS: BP 96/65
[2018-04-25] MEDS: DULoxetine HCL 60 MG CAPSULE.DR PO SCH (19:55)
--- NOTE | 2018-04-25 21:59 | PDOC ---
Exam Note: Adriano Note: Please also refer to the separate dictated note~for this date of service dictated separately.~Patient seen individually. Discussed the patient with Nursing staff reviewed the chart.~Reviewed interim history and current functioning. Reviewed vital signs,~Labs/ Radiology~and current medications noted below. Continue current treatment with the changes noted in the dictated addendum note Assessment: Vital Signs: Vital Signs Date Time Temp Pulse Resp B/P (MAP) Pulse Ox O2 Delivery O2 Flow Rate FiO2 04/25/18 15:43 98.8 85 19 96/65 (75) 94 Room Air I&O Intake and Output 04/25/18 07:01 Intake Total 240 ml Balance 240 ml Intake Oral 240 ml Labs: Laboratory Tests Test 04/25/18 09:06 White Blood Count 9.7 x10^3/uL (4.0-11.0) Red Blood Count 3.16 x10^6/uL (3.50-5.40) L Hemoglobin 9.2 g/dL (12.0-15.5) L Hematocrit 28.8 % (36.0-47.0) L Mean Corpuscular Volume 91 fL (79-100) Mean Corpuscular Hemoglobin 29 pg (25-35) Mean Corpuscular Hemoglobin Concent 32 g/dL (31-37) Red Cell Distribution Width 16.8 % (11.5-14.5) H Platelet Count 555 x10^3/uL (140-400) H Neutrophils (%) (Auto) 69 % (31-73) Lymphocytes (%) (Auto) 22 % (24-48) L Monocytes (%) (Auto) 6 % (0-9) Eosinophils (%) (Auto) 2 % (0-3) Basophils (%) (Auto) 1 % (0-3) Neutrophils # (Auto) 6.7 x10^3uL (1.8-7.7) Lymphocytes # (Auto) 2.1 x10^3/uL (1.0-4.8) Monocytes # (Auto) 0.6 x10^3/uL (0.0-1.1) Eosinophils # (Auto) 0.2 x10^3/uL (0.0-0.7) Basophils # (Auto) 0.0 x10^3/uL (0.0-0.2) Sodium Level 142 mmol/L (136-145) Potassium Level 4.3 mmol/L (3.5-5.1) Chloride Level 105 mmol/L (98-107) Carbon Dioxide Level 29 mmol/L (21-32) Anion Gap 8 (6-14) Blood Urea Nitrogen 21 mg/dL (7-20) H Creatinine 1.0 mg/dL (0.6-1.0) Estimated GFR (Cockcroft-Gault) 53.5 BUN/Creatinine Ratio 21 (6-20) H Glucose Level 144 mg/dL (70-99) H Calcium Level 9.4 mg/dL (8.5-10.1) Total Bilirubin 0.2 mg/dL (0.2-1.0) Aspartate Amino Transferase (AST) 16 U/L (15-37) Alanine Aminotransferase (ALT) 14 U/L (14-59) Alkaline Phosphatase 84 U/L (46-116) Total Protein 7.3 g/dL (6.4-8.2) Albumin 2.8 g/dL (3.4-5.0) L Albumin/Globulin Ratio 0.6 (1.0-1.7) L Current Medications: Meds: Current Medications Magnesium Hydroxide (Milk Of Magnesia) 2,400 mg 1X ONCE PO ; Start 04/10/18 at 04:00; Stop 04/10/18 at 05:06; Status DC Acetaminophen (Tylenol) 650 mg PRN Q6HRS PRN PO PAIN / TEMP; Start 04/10/18 at 04:15; Status UNV Multi-Ingredient Ointment (Analgesic [place]) 1 adriana PRN QID PRN TP MUSCLE PAIN; Start 04/10/18 at 04:15 Al Hydroxide/Mg Hydroxide (Mylanta Plus Xs) 15 ml PRN AFTMEALHC PRN PO DYSPEPSIA; Start 04/10/18 at 04:15 Magnesium Hydroxide (Milk Of Magnesia) 2,400 mg PRN QHS PRN PO CONSTIPATION; Start 04/10/18 at 04:15 Acetaminophen (Tylenol) 650 mg PRN Q4HRS PRN PO PAIN / TEMP; Start 04/10/18 at 05:00 Acetaminophen (Tylenol) 650 mg TID PO Last administered on 04/25/18at 19:55; Start 04/10/18 at 09:00 Ascorbic Acid (Vitamin C) 500 mg BID PO Last administered on 04/25/18 19:55; Start 04/10/18 at 09:00 Aspirin (Aspirin Enteric Coated) 325 mg DAILYWBKFT PO Last administered on at 08:33; Start 04/10/18 at 08:00 Calcium/Vitamin D (Oscal D 500mg/ 200uts) 1 tab BIDWMEALS PO Last administered on 04/25/18at 13:12; Start 04/10/18 at 08:00 Diclofenac Sodium (Voltaren) 4 adriana PRN BID PRN TP PAIN; Start 04/10/18 at 05: 00 Levothyroxine Sodium (Synthroid) 100 mcg DAILY06 PO Last administered on at 05:05; Start 04/10/18 at 06:00 Lactulose (Lactulose) 20 gm PRN Q12HR PRN PO CONSTIPATION; Start 04/10/18 at 05:00 Duloxetine HCl (Cymbalta) 30 mg QHS PO Last administered on 04/15/18at 19:39; Start 04/10/18 at 21:00; Stop 04/16/18 at 11:14; Status DC Duloxetine HCl (Cymbalta) 60 mg DAILY PO Last administered on 04/16/18 07:54 ; Start 04/10/18 at 09:00; Stop 04/16/18 at 11:14; Status DC Memantine (Namenda) 10 mg BID PO Last administered on 04/25/18at 19:55; Start 04/10/18 at 09:00 Olanzapine (ZyPREXA) 5 mg DAILY PO Last administered on 04/14/18at 08:10; Start 04/10/18 at 09:00; Stop 04/14/18 at 16:40; Status DC Olanzapine (ZyPREXA) 10 mg QHS PO Last administered on 04/13/18at 20:08; Start 04/10/18 at 21:00; Stop 04/14/18 at 16:40; Status DC Rivastigmine (Exelon) 1 patch DAILY TD Last administered on 04/16/18 07:54; Start 04/10/18 at 09:00; Stop 04/16/18 at 11:15; Status DC Vitamin D (Vitamin D3) 50,000 unit WEEKLY PO Last administered on 04/24/18at 08 :20; Start 04/10/18 at 16:00 Quetiapine Fumarate (SEROquel) 25 mg BIDWBKFT/TERENCE PO Last administered on 04/25at 13:12; Start 04/15/18 at 08:00 Duloxetine HCl (Cymbalta) 60 mg HS PO Last administered on 04/25/18at 19:55; Start 04/16/18 at 21:00 Rivastigmine (Exelon) 1 patch DAILY TD Last administered on 04/25/18at 08:47; Start 04/17/18 at 09:00 Olanzapine (ZyPREXA ZYDIS) 2.5 mg PRN Q2HR PRN PO PSYCHOSIS Last administered on 04/25/18at 12:20; Start 04/25/18 at 12:15 Active Scripts Active Reported Voltaren (Diclofenac Sodium) 100 Gm Gel..gram. 4 Gm TP PRN BID PRN Vitamin C (Ascorbic Acid) 500 Mg Tablet 500 Mg PO BID Tylenol (Acetaminophen) 325 Mg Tablet 650 Mg PO TID EXELON 4.6mg/24hr (Rivastigmine) 1 Each Patch.td24 1 Patch TD DAILY Olanzapine 5 Mg Tablet 5 Mg PO DAILY Olanzapine 10 Mg Tablet 10 Mg PO QHS Namenda (Memantine Hcl) 10 Mg Tablet 10 Mg PO BID Levothyroxine Sodium 100 Mcg Tablet 100 Mcg PO DAILYAC Lactulose 10 Gm/15 Ml Solution 20 Gm PO PRN Q12HR PRN Cymbalta (Duloxetine Hcl) 60 Mg Capsule. 60 Mg PO DAILY Cymbalta (Duloxetine Hcl) 30 Mg Capsule. 30 Mg PO QHS Calcium 500 + Vit D 200 Tablet (Calcium Carbonate/Vitamin D3) 1 Each Tablet 1 Tab PO BID Aspirin Ec (Aspirin) 325 Mg Tablet. 325 Mg PO DAILY Tylenol (Acetaminophen) 325 Mg Tablet 650 Mg PO PRN Q4HRS PRN I have reviewed the current psychotropics carefully including drug interactions. Risk benefit ratio favors no change other than as noted in my dictated progress note. Diagnosis: Problems: (1) Mental status change resolved (2) Confusion (3) Depression (4) Vascular dementia with delusions (5) Alzheimer's dementia AUGIE SANCHEZ MD Apr 25, 2018 21:59
[2018-04-26] MEDS: LEVOTHYROXINE 100 MCG TABLET PO SCH (06:03)
[2018-04-26 06:29] VITALS: BP 127/82
[2018-04-26] MEDS: ASPIRIN ENTERIC COATED 325 MG TABLET.DR. PO SCH (08:17)
[2018-04-26] MEDS: CALCIUM CARB/VIT D3 500/200 TABLET PO SCH ×2 (08:17→13:12)
[2018-04-26] MEDS: ASCORBIC ACID 500 MG TABLET PO SCH ×2 (08:17→20:06)
[2018-04-26] MEDS: MEMANTINE 10 MG TABLET. PO SCH ×2 (08:17→20:07)
[2018-04-26] MEDS: ACETAMINOPHEN 325 MG TABLET PO SCH ×3 (08:18→20:06)
[2018-04-26] MEDS: RIVASTIGMINE 9.5MG PATCH. TD SCH (08:18)
[2018-04-26 16:08] VITALS: BP 117/64
[2018-04-26] MEDS: DULoxetine HCL 60 MG CAPSULE.DR PO SCH (20:06)
--- NOTE | 2018-04-26 23:10 | PDOC ---
Exam Note: Adriano Note: Please also refer to the separate dictated note~for this date of service dictated separately.~Patient seen individually. Discussed the patient with Nursing staff reviewed the chart.~Reviewed interim history and current functioning. Reviewed vital signs,~Labs/ Radiology~and current medications noted below. Continue current treatment with the changes noted in the dictated addendum note Assessment: Vital Signs: Vital Signs Date Time Temp Pulse Resp B/P (MAP) Pulse Ox O2 Delivery O2 Flow Rate FiO2 04/26/18 16:08 97.4 73 21 117/64 (81) 95 04/26/18 06:29 Room Air I&O Intake and Output 04/26/18 07:01 Intake Total 1022 ml Balance 1022 ml Intake Oral 1022 ml Current Medications: Meds: Current Medications Magnesium Hydroxide (Milk Of Magnesia) 2,400 mg 1X ONCE PO ; Start 04/10/18 at 04:00; Stop 04/10/18 at 05:06; Status DC Acetaminophen (Tylenol) 650 mg PRN Q6HRS PRN PO PAIN / TEMP; Start 04/10/18 at 04:15; Status UNV Multi-Ingredient Ointment (Analgesic [place]) 1 adriana PRN QID PRN TP MUSCLE PAIN; Start 04/10/18 at 04:15 Al Hydroxide/Mg Hydroxide (Mylanta Plus Xs) 15 ml PRN AFTMEALHC PRN PO DYSPEPSIA; Start 04/10/18 at 04:15 Magnesium Hydroxide (Milk Of Magnesia) 2,400 mg PRN QHS PRN PO CONSTIPATION; Start 04/10/18 at 04:15 Acetaminophen (Tylenol) 650 mg PRN Q4HRS PRN PO PAIN / TEMP; Start 04/10/18 at 05:00 Acetaminophen (Tylenol) 650 mg TID PO Last administered on 04/26/18at 20:06; Start 04/10/18 at 09:00 Ascorbic Acid (Vitamin C) 500 mg BID PO Last administered on 04/26/18at 20:06; Start 04/10/18 at 09:00 Aspirin (Aspirin Enteric Coated) 325 mg DAILYWBKFT PO Last administered on at 08:17; Start 04/10/18 at 08:00 Calcium/Vitamin D (Oscal D 500mg/ 200uts) 1 tab BIDWMEALS PO Last administered on 04/26/18at 13:12; Start 04/10/18 at 08:00 Diclofenac Sodium (Voltaren) 4 adriana PRN BID PRN TP PAIN; Start 04/10/18 at 05: 00 Levothyroxine Sodium (Synthroid) 100 mcg DAILY06 PO Last administered on at 06:03; Start 04/10/18 at 06:00 Lactulose (Lactulose) 20 gm PRN Q12HR PRN PO CONSTIPATION; Start 04/10/18 at 05:00 Duloxetine HCl (Cymbalta) 30 mg QHS PO Last administered on 04/15/18at 19:39; Start 04/10/18 at 21:00; Stop 04/16/18 at 11:14; Status DC Duloxetine HCl (Cymbalta) 60 mg DAILY PO Last administered on 04/16/18at 07:54 ; Start 04/10/18 at 09:00; Stop 04/16/18 at 11:14; Status DC Memantine (Namenda) 10 mg BID PO Last administered on 04/26/18at 20:07; Start 04/10/18 at 09:00 Olanzapine (ZyPREXA) 5 mg DAILY PO Last administered on 04/14/18at 08:10; Start 04/10/18 at 09:00; Stop 04/14/18 at 16:40; Status DC Olanzapine (ZyPREXA) 10 mg QHS PO Last administered on 04/13/18at 20:08; Start 04/10/18 at 21:00; Stop 04/14/18 at 16:40; Status DC Rivastigmine (Exelon) 1 patch DAILY TD Last administered on 04/16/18at 07:54; Start 04/10/18 at 09:00; Stop 04/16/18 at 11:15; Status DC Vitamin D (Vitamin D3) 50,000 unit WEEKLY PO Last administered on 04/24/18at 08 :20; Start 04/10/18 at 16:00 Quetiapine Fumarate (SEROquel) 25 mg BIDWBKFT/TERENCE PO Last administered on 04/25at 13:12; Start 04/15/18 at 08:00; Stop 04/25/18 at 23:23; Status DC Duloxetine HCl (Cymbalta) 60 mg HS PO Last administered on 04/26/18at 20:06; Start 04/16/18 at 21:00 Rivastigmine (Exelon) 1 patch DAILY TD Last administered on 04/26/18at 08:18; Start 04/17/18 at 09:00 Olanzapine (ZyPREXA ZYDIS) 2.5 mg PRN Q2HR PRN PO PSYCHOSIS Last administered on 04/25/18at 12:20; Start 04/25/18 at 12:15 Olanzapine (ZyPREXA ZYDIS) 2.5 mg BID@0900,1200 PO Last administered on at 13:12; Start 04/26/18 at 09:00 Active Scripts Active Reported Voltaren (Diclofenac Sodium) 100 Gm Gel..gram. 4 Gm TP PRN BID PRN Vitamin C (Ascorbic Acid) 500 Mg Tablet 500 Mg PO BID Tylenol (Acetaminophen) 325 Mg Tablet 650 Mg PO TID EXELON 4.6mg/24hr (Rivastigmine) 1 Each Patch.td24 1 Patch TD DAILY Olanzapine 5 Mg Tablet 5 Mg PO DAILY Olanzapine 10 Mg Tablet 10 Mg PO QHS Namenda (Memantine Hcl) 10 Mg Tablet 10 Mg PO BID Levothyroxine Sodium 100 Mcg Tablet 100 Mcg PO DAILYAC Lactulose 10 Gm/15 Ml Solution 20 Gm PO PRN Q12HR PRN Cymbalta (Duloxetine Hcl) 60 Mg Capsule. 60 Mg PO DAILY Cymbalta (Duloxetine Hcl) 30 Mg Capsule. 30 Mg PO QHS Calcium 500 + Vit D 200 Tablet (Calcium Carbonate/Vitamin D3) 1 Each Tablet 1 Tab PO BID Aspirin Ec (Aspirin) 325 Mg Tablet. 325 Mg PO DAILY Tylenol (Acetaminophen) 325 Mg Tablet 650 Mg PO PRN Q4HRS PRN I have reviewed the current psychotropics carefully including drug interactions. Risk benefit ratio favors no change other than as noted in my dictated progress note. Diagnosis: Problems: (1) Mental status change resolved (2) Confusion (3) Depression (4) Vascular dementia with delusions (5) Alzheimer's dementia AUGIE SANCHEZ MD Apr 26, 2018 23:10
[2018-04-27 05:41] VITALS: BP 131/74
[2018-04-27] MEDS: LEVOTHYROXINE 100 MCG TABLET PO SCH (06:00)
[2018-04-27] MEDS: MEMANTINE 10 MG TABLET. PO SCH ×2 (08:19→20:24)
[2018-04-27] MEDS: CALCIUM CARB/VIT D3 500/200 TABLET PO SCH ×2 (08:19→16:45)
[2018-04-27] MEDS: ACETAMINOPHEN 325 MG TABLET PO SCH ×3 (08:19→20:24)
[2018-04-27] MEDS: ASPIRIN ENTERIC COATED 325 MG TABLET.DR. PO SCH (08:19)
[2018-04-27] MEDS: RIVASTIGMINE 9.5MG PATCH. TD SCH (08:20)
[2018-04-27] MEDS: ASCORBIC ACID 500 MG TABLET PO SCH ×2 (08:20→20:24)
[2018-04-27 16:47] VITALS: BP 113/71
--- NOTE | 2018-04-27 19:53 | PN ---
DATE: 04/24/2018 PSYCHIATRIC PROGRESS NOTE This late entry 04/24/2018 covers elements not covered in my initial note. SUBJECTIVE: I met with the patient in the evening and staffed at a treatment team meeting with the entire team. She is sleeping 7-1/2 hours average, slept 7-1/4 hours previous night. Appetite 70%, compliant with medications, somewhat drowsy. She gets somewhat irritable at times, very confused. REVIEW OF SYSTEMS: Ambulation impaired, in Broda chair. No CV, , pulmonary, eye, ENT system symptoms on review. Reliability poor. MENTAL STATUS EXAM: Oriented to herself. Insight, judgment, recent and remote memory, attention, concentration, fund of knowledge poor, consistent with her diagnosis mentioned in my initial note. PLAN: No change from initial note. MAN Alva SANCHEZ MD DR: JESUS/mateo JOB#: [id number] / [id number]
[2018-04-27] MEDS: DULoxetine HCL 60 MG CAPSULE.DR PO SCH (20:24)
--- NOTE | 2018-04-27 21:57 | PN ---
DATE: 04/25/2018 PSYCHIATRIC PROGRESS NOTE This late entry 04/25/2018 covers elements not covered in my initial note. SUBJECTIVE: I met with the patient in the evening. The patient slept 6-3/4 hours previous night. Nursing staff had called me in the morning. She was quite agitated. We started scheduled Zyprexa morning and noon since she responded very well to the p.r.n. Zyprexa. We will stop the Seroquel as we start the scheduled Zyprexa. She was talking more going to kill someone and pulling someone's "hair out." REVIEW OF SYSTEMS: Ambulation impaired, in Broda chair. No CV, , pulmonary, eye, ENT system symptoms on review. Reliability poor. MENTAL STATUS EXAM: Oriented to herself. Insight, judgment, recent and remote memory, attention, concentration, fund of knowledge poor, consistent with her diagnosis mentioned in my initial note. IMPRESSION: Major neurocognitive disorder, Alzheimer, vascular with delusion, depression, behavioral disturbance. Rest unchanged. PLAN: Change the Seroquel to schedule Zyprexa 2.5 mg 9:00 a.m. and noon. Continue Zyprexa Zydis p.r.n. Maintain Cymbalta, Exelon patch, Namenda unchanged for now. AUGIE SANCHEZ MD DR: JESUS/mateo JOB#: [id number] / [id number]
--- NOTE | 2018-04-27 22:04 | PN ---
DATE: 04/26/2018 PSYCHIATRIC PROGRESS NOTE This late entry 04/26/2018 covers elements not covered in my initial note. SUBJECTIVE: I met with the patient in the evening. The patient slept 8-1/2 hours previous evening. She has had 1 outburst and was making rather nasty comments to the staff member "get away SOB." REVIEW OF SYSTEMS: Ambulation impaired, in Broda chair. No CV, , pulmonary, eye, ENT system symptoms on review. Reliability poor. MENTAL STATUS EXAM: Oriented to herself. Insight, judgment, recent and remote memory, attention, concentration, fund of knowledge poor, consistent with her diagnosis mentioned in my initial note. IMPRESSION: Major neurocognitive disorder, Alzheimer, vascular with delusion, depression, behavioral disturbance. Rest unchanged. PLAN: No change from initial note. MAN Alva SANCHEZ MD DR: JESUS/mateo JOB#: [id number] / [id number]
--- NOTE | 2018-04-27 22:43 | PDOC ---
Exam Note: Adriano Note: Please also refer to the separate dictated note~for this date of service dictated separately.~Patient seen individually. Discussed the patient with Nursing staff reviewed the chart.~Reviewed interim history and current functioning. Reviewed vital signs,~Labs/ Radiology~and current medications noted below. Continue current treatment with the changes noted in the dictated addendum note Assessment: Vital Signs: Vital Signs Date Time Temp Pulse Resp B/P (MAP) Pulse Ox O2 Delivery O2 Flow Rate FiO2 04/27/18 16:47 97.6 67 19 113/71 (85) 95.0 04/27/18 05:41 93 04/26/18 06:29 Room Air I&O Intake and Output 04/27/18 07:01 Intake Total 480 ml Balance 480 ml Intake Oral 480 ml # Bowel Movements 1 Current Medications: Meds: Current Medications Magnesium Hydroxide (Milk Of Magnesia) 2,400 mg 1X ONCE PO ; Start 04/10/18 at 04:00; Stop 04/10/18 at 05:06; Status DC Acetaminophen (Tylenol) 650 mg PRN Q6HRS PRN PO PAIN / TEMP; Start 04/10/18 at 04:15; Status UNV Multi-Ingredient Ointment (Analgesic [place]) 1 adriana PRN QID PRN TP MUSCLE PAIN; Start 04/10/18 at 04:15 Al Hydroxide/Mg Hydroxide (Mylanta Plus Xs) 15 ml PRN AFTMEALHC PRN PO DYSPEPSIA; Start 04/10/18 at 04:15 Magnesium Hydroxide (Milk Of Magnesia) 2,400 mg PRN QHS PRN PO CONSTIPATION; Start 04/10/18 at 04:15 Acetaminophen (Tylenol) 650 mg PRN Q4HRS PRN PO PAIN / TEMP Last administered on 04/27/18at 06:01; Start 04/10/18 at 05:00 Acetaminophen (Tylenol) 650 mg TID PO Last administered on 04/27/18at 20:24; Start 04/10/18 at 09:00 Ascorbic Acid (Vitamin C) 500 mg BID PO Last administered on 04/27/18at 20:24; Start 04/10/18 at 09:00 Aspirin (Aspirin Enteric Coated) 325 mg DAILYWBKFT PO Last administered on at 08:19; Start 04/10/18 at 08:00 Calcium/Vitamin D (Oscal D 500mg/ 200uts) 1 tab BIDWMEALS PO Last administered on 04/27/18at 16:45; Start 04/10/18 at 08:00 Diclofenac Sodium (Voltaren) 4 adriana PRN BID PRN TP PAIN; Start 04/10/18 at 05: 00 Levothyroxine Sodium (Synthroid) 100 mcg DAILY06 PO Last administered on at 06:00; Start 04/10/18 at 06:00 Lactulose (Lactulose) 20 gm PRN Q12HR PRN PO CONSTIPATION; Start 04/10/18 at 05:00 Duloxetine HCl (Cymbalta) 30 mg QHS PO Last administered on 04/15/18at 19:39; Start 04/10/18 at 21:00; Stop 04/16/18 at 11:14; Status DC Duloxetine HCl (Cymbalta) 60 mg DAILY PO Last administered on 04/16/18at 07:54 ; Start 04/10/18 at 09:00; Stop 04/16/18 at 11:14; Status DC Memantine (Namenda) 10 mg BID PO Last administered on 04/27/18at 20:24; Start 04/10/18 at 09:00 Olanzapine (ZyPREXA) 5 mg DAILY PO Last administered on 04/14/18at 08:10; Start 04/10/18 at 09:00; Stop 04/14/18 at 16:40; Status DC Olanzapine (ZyPREXA) 10 mg QHS PO Last administered on 04/13/18at 20:08; Start 04/10/18 at 21:00; Stop 04/14/18 at 16:40; Status DC Rivastigmine (Exelon) 1 patch DAILY TD Last administered on 04/16/18at 07:54; Start 04/10/18 at 09:00; Stop 04/16/18 at 11:15; Status DC Vitamin D (Vitamin D3) 50,000 unit WEEKLY PO Last administered on 04/24/18at 08 :20; Start 04/10/18 at 16:00 Quetiapine Fumarate (SEROquel) 25 mg BIDWBKFT/TERENCE PO Last administered on 04/25at 13:12; Start 04/15/18 at 08:00; Stop 04/25/18 at 23:23; Status DC Duloxetine HCl (Cymbalta) 60 mg HS PO Last administered on 04/27/18at 20:24; Start 04/16/18 at 21:00 Rivastigmine (Exelon) 1 patch DAILY TD Last administered on 04/27/18at 08:20; Start 04/17/18 at 09:00 Olanzapine (ZyPREXA ZYDIS) 2.5 mg PRN Q2HR PRN PO PSYCHOSIS Last administered on 04/25/18at 12:20; Start 04/25/18 at 12:15 Olanzapine (ZyPREXA ZYDIS) 2.5 mg BID@0900,1200 PO Last administered on at 12:00; Start 04/26/18 at 09:00 Active Scripts Active Reported Voltaren (Diclofenac Sodium) 100 Gm Gel..gram. 4 Gm TP PRN BID PRN Vitamin C (Ascorbic Acid) 500 Mg Tablet 500 Mg PO BID Tylenol (Acetaminophen) 325 Mg Tablet 650 Mg PO TID EXELON 4.6mg/24hr (Rivastigmine) 1 Each Patch.td24 1 Patch TD DAILY Olanzapine 5 Mg Tablet 5 Mg PO DAILY Olanzapine 10 Mg Tablet 10 Mg PO QHS Namenda (Memantine Hcl) 10 Mg Tablet 10 Mg PO BID Levothyroxine Sodium 100 Mcg Tablet 100 Mcg PO DAILYAC Lactulose 10 Gm/15 Ml Solution 20 Gm PO PRN Q12HR PRN Cymbalta (Duloxetine Hcl) 60 Mg Capsule. 60 Mg PO DAILY Cymbalta (Duloxetine Hcl) 30 Mg Capsule. 30 Mg PO QHS Calcium 500 + Vit D 200 Tablet (Calcium Carbonate/Vitamin D3) 1 Each Tablet 1 Tab PO BID Aspirin Ec (Aspirin) 325 Mg Tablet. 325 Mg PO DAILY Tylenol (Acetaminophen) 325 Mg Tablet 650 Mg PO PRN Q4HRS PRN I have reviewed the current psychotropics carefully including drug interactions. Risk benefit ratio favors no change other than as noted in my dictated progress note. Diagnosis: Problems: (1) Mental status change resolved (2) Confusion (3) Depression (4) Vascular dementia with delusions (5) Alzheimer's dementia AUGIE SANCHEZ MD Apr 27, 2018 22:43
[2018-04-28] MEDS: LEVOTHYROXINE 100 MCG TABLET PO SCH (05:56)
[2018-04-28 05:59] VITALS: BP 150/82
[2018-04-28] MEDS: RIVASTIGMINE 9.5MG PATCH. TD SCH (08:09)
[2018-04-28] MEDS: ASPIRIN ENTERIC COATED 325 MG TABLET.DR. PO SCH (08:11)
[2018-04-28] MEDS: ACETAMINOPHEN 325 MG TABLET PO SCH ×3 (08:11→19:43)
[2018-04-28] MEDS: ASCORBIC ACID 500 MG TABLET PO SCH ×2 (08:11→19:43)
[2018-04-28] MEDS: MEMANTINE 10 MG TABLET. PO SCH ×2 (08:11→19:44)
[2018-04-28] MEDS: CALCIUM CARB/VIT D3 500/200 TABLET PO SCH ×2 (08:11→17:23)
[2018-04-28 16:24] VITALS: BP 130/86
[2018-04-28 17:20] LABS: AMORPHOUS SEDIMENT,UR PRESENT /HPF; BACTERIA,URINE 0 /HPF (0-FEW); BILIRUBIN,URINE NEG (NEG); CLARITY,URINE CLEAR; COLOR,URINE STRAW; GLUCOSE,URINE NEG (NEG); HYALINE CASTS, URINE OCC /HPF; NITRITE,URINE NEG (NEG); RBC,URINE 0 /HPF (0-2); SQUAMOUS EPITHELIAL CELL,UR OCC /LPF; UROBILINOGEN,URINE 0.2 mg/dL (0.2 mg/dL); WBC,URINE RARE /HPF (0-4)
[2018-04-28] MEDS: DULoxetine HCL 60 MG CAPSULE.DR PO SCH (19:44)
--- NOTE | 2018-04-28 22:54 | PDOC ---
Exam Note: Adriano Note: Please also refer to the separate dictated note~for this date of service dictated separately.~Patient seen individually. Discussed the patient with Nursing staff reviewed the chart.~Reviewed interim history and current functioning. Reviewed vital signs,~Labs/ Radiology~and current medications noted below. Continue current treatment with the changes noted in the dictated addendum note Assessment: Vital Signs: Vital Signs Date Time Temp Pulse Resp B/P (MAP) Pulse Ox O2 Delivery O2 Flow Rate FiO2 04/28/18 16:24 97.4 80 16 130/86 (101) 97 04/27/18 16:47 95.0 04/26/18 06:29 Room Air I&O Intake and Output 04/28/18 07:01 Intake Total 480 ml Balance 480 ml Intake Oral 480 ml Labs: Laboratory Tests Test 04/28/18 16:55 Urine Collection Type U cath Urine Color Straw Urine Clarity Clear Urine pH 6.5 Urine Specific [place] 1.015 Urine Protein Neg (NEG-TRACE) Urine Glucose (UA) Neg mg/dL (NEG) Urine Ketones (Stick) Neg mg/dL (NEG) Urine Blood Neg (NEG) Urine Nitrite Neg (NEG) Urine Bilirubin Neg (NEG) Urine Urobilinogen Dipstick 0.2 mg/dL (0.2 mg/dL) Urine Leukocyte Esterase Neg (NEG) Urine RBC 0 /HPF (0-2) Urine WBC Rare /HPF (0-4) Urine Squamous Epithelial Cells Occ /LPF Urine Transitional Epithelial Cells Occ /LPF Urine Amorphous Sediment Present /HPF Urine Bacteria 0 /HPF (0-FEW) Urine Hyaline Casts Occ /HPF Current Medications: Meds: Current Medications Magnesium Hydroxide (Milk Of Magnesia) 2,400 mg 1X ONCE PO ; Start 04/10/18 at 04:00; Stop 04/10/18 at 05:06; Status DC Acetaminophen (Tylenol) 650 mg PRN Q6HRS PRN PO PAIN / TEMP; Start 04/10/18 at 04:15; Status UNV Multi-Ingredient Ointment (Analgesic [place]) 1 adriana PRN QID PRN TP MUSCLE PAIN; Start 04/10/18 at 04:15 Al Hydroxide/Mg Hydroxide (Mylanta Plus Xs) 15 ml PRN AFTMEALHC PRN PO DYSPEPSIA; Start 04/10/18 at 04:15 Magnesium Hydroxide (Milk Of Magnesia) 2,400 mg PRN QHS PRN PO CONSTIPATION Last administered on 04/28/18 06:29; Start 04/10/18 at 04:15 Acetaminophen (Tylenol) 650 mg PRN Q4HRS PRN PO PAIN / TEMP Last administered on 04/27/18at 06:01; Start 04/10/18 at 05:00 Acetaminophen (Tylenol) 650 mg TID PO Last administered on 04/28/18 19:43; Start 04/10/18 at 09:00 Ascorbic Acid (Vitamin C) 500 mg BID PO Last administered on 04/28/18 19:43; Start 04/10/18 at 09:00 Aspirin (Aspirin Enteric Coated) 325 mg DAILYWBKFT PO Last administered on 08:11; Start 04/10/18 at 08:00 Calcium/Vitamin D (Oscal D 500mg/ 200uts) 1 tab BIDWMEALS PO Last administered on 04/28/18 17:23; Start 04/10/18 at 08:00 Diclofenac Sodium (Voltaren) 4 adriana PRN BID PRN TP PAIN; Start 04/10/18 at 05: 00 Levothyroxine Sodium (Synthroid) 100 mcg DAILY06 PO Last administered on 05:56; Start 04/10/18 at 06:00 Lactulose (Lactulose) 20 gm PRN Q12HR PRN PO CONSTIPATION; Start 04/10/18 at 05:00 Duloxetine HCl (Cymbalta) 30 mg QHS PO Last administered on 04/15/18at 19:39; Start 04/10/18 at 21:00; Stop 04/16/18 at 11:14; Status DC Duloxetine HCl (Cymbalta) 60 mg DAILY PO Last administered on 04/16/18at 07:54 ; Start 04/10/18 at 09:00; Stop 04/16/18 at 11:14; Status DC Memantine (Namenda) 10 mg BID PO Last administered on 04/28/18 19:44; Start at 09:00 Olanzapine (ZyPREXA) 5 mg DAILY PO Last administered on 04/14/18at 08:10; Start 04/10/18 at 09:00; Stop 04/14/18 at 16:40; Status DC Olanzapine (ZyPREXA) 10 mg QHS PO Last administered on 04/13/18at 20:08; Start 04/10/18 at 21:00; Stop 04/14/18 at 16:40; Status DC Rivastigmine (Exelon) 1 patch DAILY TD Last administered on 04/16/18at 07:54; Start 04/10/18 at 09:00; Stop 04/16/18 at 11:15; Status DC Vitamin D (Vitamin D3) 50,000 unit WEEKLY PO Last administered on 04/24/18at 08 :20; Start 04/10/18 at 16:00 Quetiapine Fumarate (SEROquel) 25 mg BIDWBKFT/TERENCE PO Last administered on 04/25at 13:12; Start 04/15/18 at 08:00; Stop 04/25/18 at 23:23; Status DC Duloxetine HCl (Cymbalta) 60 mg HS PO Last administered on 04/28/18at 19:44; Start 04/16/18 at 21:00 Rivastigmine (Exelon) 1 patch DAILY TD Last administered on 04/28/18at 08:09; Start 04/17/18 at 09:00 Olanzapine (ZyPREXA ZYDIS) 2.5 mg PRN Q2HR PRN PO PSYCHOSIS Last administered on 04/25/18at 12:20; Start 04/25/18 at 12:15 Olanzapine (ZyPREXA ZYDIS) 2.5 mg BID@0900,1200 PO Last administered on at 12:49; Start 04/26/18 at 09:00 Active Scripts Active Reported Voltaren (Diclofenac Sodium) 100 Gm Gel..gram. 4 Gm TP PRN BID PRN Vitamin C (Ascorbic Acid) 500 Mg Tablet 500 Mg PO BID Tylenol (Acetaminophen) 325 Mg Tablet 650 Mg PO TID EXELON 4.6mg/24hr (Rivastigmine) 1 Each Patch.td24 1 Patch TD DAILY Olanzapine 5 Mg Tablet 5 Mg PO DAILY Olanzapine 10 Mg Tablet 10 Mg PO QHS Namenda (Memantine Hcl) 10 Mg Tablet 10 Mg PO BID Levothyroxine Sodium 100 Mcg Tablet 100 Mcg PO DAILYAC Lactulose 10 Gm/15 Ml Solution 20 Gm PO PRN Q12HR PRN Cymbalta (Duloxetine Hcl) 60 Mg Capsule. 60 Mg PO DAILY Cymbalta (Duloxetine Hcl) 30 Mg Capsule. 30 Mg PO QHS Calcium 500 + Vit D 200 Tablet (Calcium Carbonate/Vitamin D3) 1 Each Tablet 1 Tab PO BID Aspirin Ec (Aspirin) 325 Mg Tablet. 325 Mg PO DAILY Tylenol (Acetaminophen) 325 Mg Tablet 650 Mg PO PRN Q4HRS PRN I have reviewed the current psychotropics carefully including drug interactions. Risk benefit ratio favors no change other than as noted in my dictated progress note. Diagnosis: Problems: (1) Mental status change resolved (2) Confusion (3) Depression (4) Vascular dementia with delusions (5) Alzheimer's dementia AUGIE SANCHEZ MD Apr 28, 2018 22:54
--- NOTE | 2018-04-28 23:30 | PN ---
DATE: 04/27/2018 This is a late entry 04/27/2018 covers elements not covered in my initial note. SUBJECTIVE: I met with the patient in the evening. I had also been called by nursing staff earlier in the day because of her agitation. She received Zyprexa p.r.n. She is quite fearful in the morning, questioning the staff "are you going to hurt me." REVIEW OF SYSTEMS: Ambulation impaired, in Broda chair. No CV, , pulmonary, eye, ENT system symptoms on review. Reliability poor. MENTAL STATUS EXAM: Oriented to herself. Insight, judgment, recent and remote memory, attention, concentration, fund of knowledge poor, consistent with her diagnosis mentioned in my initial note. PLAN: No change from initial note. MAN Alva SANCHEZ MD DR: JESUS/mateo JOB#: [id number] / [id number]
[2018-04-29 05:33] VITALS: BP 127/77
[2018-04-29] MEDS: LEVOTHYROXINE 100 MCG TABLET PO SCH (05:49)
[2018-04-29] MEDS: MEMANTINE 10 MG TABLET. PO SCH ×2 (08:09→19:46)
[2018-04-29] MEDS: RIVASTIGMINE 9.5MG PATCH. TD SCH (08:09)
[2018-04-29] MEDS: CALCIUM CARB/VIT D3 500/200 TABLET PO SCH ×2 (08:09→17:39)
[2018-04-29] MEDS: ASPIRIN ENTERIC COATED 325 MG TABLET.DR. PO SCH (08:09)
[2018-04-29] MEDS: ASCORBIC ACID 500 MG TABLET PO SCH ×2 (08:09→19:46)
[2018-04-29] MEDS: ACETAMINOPHEN 325 MG TABLET PO SCH ×3 (08:09→19:46)
[2018-04-29 16:07] VITALS: BP 96/61
[2018-04-29] MEDS: DULoxetine HCL 60 MG CAPSULE.DR PO SCH (19:46)
--- NOTE | 2018-04-29 22:45 | PDOC ---
Exam Note: Adriano Note: Please also refer to the separate dictated note~for this date of service dictated separately.~Patient seen individually. Discussed the patient with Nursing staff reviewed the chart.~Reviewed interim history and current functioning. Reviewed vital signs,~Labs/ Radiology~and current medications noted below. Continue current treatment with the changes noted in the dictated addendum note Assessment: Vital Signs: Vital Signs Date Time Temp Pulse Resp B/P (MAP) Pulse Ox O2 Delivery O2 Flow Rate FiO2 04/29/18 16:07 98.0 82 18 96/61 (73) 93 Room Air 04/27/18 16:47 95.0 I&O Intake and Output 04/29/18 07:01 Intake Total 480 ml Balance 480 ml Intake Oral 480 ml # Bowel Movements 1 Current Medications: Meds: Current Medications Magnesium Hydroxide (Milk Of Magnesia) 2,400 mg 1X ONCE PO ; Start 04/10/18 at 04:00; Stop 04/10/18 at 05:06; Status DC Acetaminophen (Tylenol) 650 mg PRN Q6HRS PRN PO PAIN / TEMP; Start 04/10/18 at 04:15; Status UNV Multi-Ingredient Ointment (Analgesic [place]) 1 adriana PRN QID PRN TP MUSCLE PAIN; Start 04/10/18 at 04:15 Al Hydroxide/Mg Hydroxide (Mylanta Plus Xs) 15 ml PRN AFTMEALHC PRN PO DYSPEPSIA; Start 04/10/18 at 04:15 Magnesium Hydroxide (Milk Of Magnesia) 2,400 mg PRN QHS PRN PO CONSTIPATION Last administered on 04/28/18at 06:29; Start 04/10/18 at 04:15 Acetaminophen (Tylenol) 650 mg PRN Q4HRS PRN PO PAIN / TEMP Last administered on 04/27/18at 06:01; Start 04/10/18 at 05:00 Acetaminophen (Tylenol) 650 mg TID PO Last administered on 04/29/18 19:46; Start 04/10/18 at 09:00 Ascorbic Acid (Vitamin C) 500 mg BID PO Last administered on 04/29/18 19:46; Start 04/10/18 at 09:00 Aspirin (Aspirin Enteric Coated) 325 mg DAILYWBKFT PO Last administered on 08:09; Start 04/10/18 at 08:00 Calcium/Vitamin D (Oscal D 500mg/ 200uts) 1 tab BIDWMEALS PO Last administered on 04/29/18 17:39; Start 04/10/18 at 08:00 Diclofenac Sodium (Voltaren) 4 adriana PRN BID PRN TP PAIN; Start 04/10/18 at 05: 00 Levothyroxine Sodium (Synthroid) 100 mcg DAILY06 PO Last administered on 05:49; Start 04/10/18 at 06:00 Lactulose (Lactulose) 20 gm PRN Q12HR PRN PO CONSTIPATION; Start 04/10/18 at 05:00 Duloxetine HCl (Cymbalta) 30 mg QHS PO Last administered on 04/15/18at 19:39; Start 04/10/18 at 21:00; Stop 04/16/18 at 11:14; Status DC Duloxetine HCl (Cymbalta) 60 mg DAILY PO Last administered on 04/16/18at 07:54 ; Start 04/10/18 at 09:00; Stop 04/16/18 at 11:14; Status DC Memantine (Namenda) 10 mg BID PO Last administered on 04/29/18at 19:46; Start at 09:00 Olanzapine (ZyPREXA) 5 mg DAILY PO Last administered on 04/14/18at 08:10; Start 04/10/18 at 09:00; Stop 04/14/18 at 16:40; Status DC Olanzapine (ZyPREXA) 10 mg QHS PO Last administered on 04/13/18at 20:08; Start 04/10/18 at 21:00; Stop 04/14/18 at 16:40; Status DC Rivastigmine (Exelon) 1 patch DAILY TD Last administered on 04/16/18at 07:54; Start 04/10/18 at 09:00; Stop 04/16/18 at 11:15; Status DC Vitamin D (Vitamin D3) 50,000 unit WEEKLY PO Last administered on 04/24/18at 08 :20; Start 04/10/18 at 16:00 Quetiapine Fumarate (SEROquel) 25 mg BIDWBKFT/TERENCE PO Last administered on 04/25at 13:12; Start 04/15/18 at 08:00; Stop 04/25/18 at 23:23; Status DC Duloxetine HCl (Cymbalta) 60 mg HS PO Last administered on 04/29/18 19:46; Start 04/16/18 at 21:00 Rivastigmine (Exelon) 1 patch DAILY TD Last administered on 04/29/18 08:09; Start 04/17/18 at 09:00 Olanzapine (ZyPREXA ZYDIS) 2.5 mg PRN Q2HR PRN PO PSYCHOSIS Last administered on 04/25/18at 12:20; Start 04/25/18 at 12:15 Olanzapine (ZyPREXA ZYDIS) 2.5 mg BID@0900,1200 PO Last administered on 12:27; Start 04/26/18 at 09:00 Active Scripts Active Reported Voltaren (Diclofenac Sodium) 100 Gm Gel..gram. 4 Gm TP PRN BID PRN Vitamin C (Ascorbic Acid) 500 Mg Tablet 500 Mg PO BID Tylenol (Acetaminophen) 325 Mg Tablet 650 Mg PO TID EXELON 4.6mg/24hr (Rivastigmine) 1 Each Patch.td24 1 Patch TD DAILY Olanzapine 5 Mg Tablet 5 Mg PO DAILY Olanzapine 10 Mg Tablet 10 Mg PO QHS Namenda (Memantine Hcl) 10 Mg Tablet 10 Mg PO BID Levothyroxine Sodium 100 Mcg Tablet 100 Mcg PO DAILYAC Lactulose 10 Gm/15 Ml Solution 20 Gm PO PRN Q12HR PRN Cymbalta (Duloxetine Hcl) 60 Mg Capsule. 60 Mg PO DAILY Cymbalta (Duloxetine Hcl) 30 Mg Capsule. 30 Mg PO QHS Calcium 500 + Vit D 200 Tablet (Calcium Carbonate/Vitamin D3) 1 Each Tablet 1 Tab PO BID Aspirin Ec (Aspirin) 325 Mg Tablet. 325 Mg PO DAILY Tylenol (Acetaminophen) 325 Mg Tablet 650 Mg PO PRN Q4HRS PRN I have reviewed the current psychotropics carefully including drug interactions. Risk benefit ratio favors no change other than as noted in my dictated progress note. Diagnosis: Problems: (1) Mental status change resolved (2) Confusion (3) Depression (4) Vascular dementia with delusions (5) Alzheimer's dementia AUGIE SANCHEZ MD Apr 29, 2018 22:45
--- NOTE | 2018-04-29 23:00 | PN ---
DATE: 04/28/2018 PSYCHIATRIC PROGRESS NOTE This late entry 04/28/2018 covers elements not covered in my initial note. SUBJECTIVE: I met with the patient in the evening. The patient slept 8-1/4 hours previous night. She remains confused, remains in a Broda chair. No CV, , pulmonary, eye, ENT system symptoms on review. Reliability poor. She takes her meds crushed or in pudding and was somewhat delusional per nursing report regarding balls on the table, unsure what it is. She does know her name as I questioned her. MENTAL STATUS EXAM: Oriented to herself. Insight, judgment, recent and remote memory, attention, concentration, fund of knowledge poor, consistent with her diagnosis mentioned in my initial note. PLAN: No change from initial note. MAN Alva SANCHEZ MD DR: JESUS/mateo JOB#: [id number] / [id number]
[2018-04-30] MEDS ORDERED: CHOL500050 PO (00:27)
[2018-04-30] MEDS ORDERED: MAGN2400 PO (00:30)
[2018-04-30] MEDS ORDERED: MAG30ORA2 PO (00:30)
[2018-04-30] MEDS ORDERED: METH29OI TP (00:31)
[2018-04-30] MEDS ORDERED: OLAN5TAB5 PO ×2 (00:32→00:33)
[2018-04-30] MEDS ORDERED: RIVA1PAT23 TP (00:35)
[2018-04-30 05:48] VITALS: BP 114/68
[2018-04-30] MEDS: LEVOTHYROXINE 100 MCG TABLET PO SCH (06:51)
[2018-04-30] MEDS: ACETAMINOPHEN 325 MG TABLET PO SCH (07:55)
[2018-04-30] MEDS: MEMANTINE 10 MG TABLET. PO SCH (07:55)
[2018-04-30] MEDS: ASPIRIN ENTERIC COATED 325 MG TABLET.DR. PO SCH (07:56)
[2018-04-30] MEDS: CALCIUM CARB/VIT D3 500/200 TABLET PO SCH (07:56)
[2018-04-30] MEDS: ASCORBIC ACID 500 MG TABLET PO SCH (07:56)
[2018-04-30] MEDS: RIVASTIGMINE 9.5MG PATCH. TD SCH (07:56)
--- NOTE | 2018-04-30 18:49 | PDOC ---
Exam Note: Adriano Note: Please also refer to the separate dictated note~for this date of service dictated separately.~Patient seen individually. Discussed the patient with Nursing staff reviewed the chart.~Reviewed interim history and current functioning. Reviewed vital signs,~Labs/ Radiology~and current medications noted below. Continue current treatment with the changes noted in the dictated addendum note Assessment: Vital Signs: Vital Signs Date Time Temp Pulse Resp B/P (MAP) Pulse Ox O2 Delivery O2 Flow Rate FiO2 04/30/18 05:48 97.0 72 18 114/68 (83) 94 04/29/18 16:07 Room Air 04/27/18 16:47 95.0 I&O Intake and Output 04/30/18 07:01 Intake Total 1320 ml Balance 1320 ml Intake Oral 1320 ml Current Medications: Meds: Current Medications Magnesium Hydroxide (Milk Of Magnesia) 2,400 mg 1X ONCE PO ; Start 04/10/18 at 04:00; Stop 04/10/18 at 05:06; Status DC Acetaminophen (Tylenol) 650 mg PRN Q6HRS PRN PO PAIN / TEMP; Start 04/10/18 at 04:15; Status UNV Multi-Ingredient Ointment (Analgesic [place]) 1 margo PRN QID PRN TP MUSCLE PAIN; Start 04/10/18 at 04:15; Stop 04/30/18 at 10:59; Status DC Al Hydroxide/Mg Hydroxide (Mylanta Plus Xs) 15 ml PRN AFTMEALHC PRN PO DYSPEPSIA; Start 04/10/18 at 04:15; Stop 04/30/18 at 10:59; Status DC Magnesium Hydroxide (Milk Of Magnesia) 2,400 mg PRN QHS PRN PO CONSTIPATION Last administered on 04/28/18at 06:29; Start 04/10/18 at 04:15; Stop 04/30/18 at 10:59; Status DC Acetaminophen (Tylenol) 650 mg PRN Q4HRS PRN PO PAIN / TEMP Last administered on 04/27/18at 06:01; Start 04/10/18 at 05:00; Stop 04/30/18 at 10:59; Status DC Acetaminophen (Tylenol) 650 mg TID PO Last administered on 04/30/18at 07:55; Start 04/10/18 at 09:00; Stop 04/30/18 at 10:59; Status DC Ascorbic Acid (Vitamin C) 500 mg BID PO Last administered on 04/30/18at 07:56; Start 04/10/18 at 09:00; Stop 04/30/18 at 10:59; Status DC Aspirin (Aspirin Enteric Coated) 325 mg DAILYWBKFT PO Last administered on at 07:56; Start 04/10/18 at 08:00; Stop 04/30/18 at 10:59; Status DC Calcium/Vitamin D (Oscal D 500mg/ 200uts) 1 tab BIDWMEALS PO Last administered on 04/30/18at 07:56; Start 04/10/18 at 08:00; Stop 04/30/18 at 10:59; Status DC Diclofenac Sodium (Voltaren) 4 margo PRN BID PRN TP PAIN; Start 04/10/18 at 05: 00; Stop 04/30/18 at 10:59; Status DC Levothyroxine Sodium (Synthroid) 100 mcg DAILY06 PO Last administered on at 06:51; Start 04/10/18 at 06:00; Stop 04/30/18 at 10:59; Status DC Lactulose (Lactulose) 20 gm PRN Q12HR PRN PO CONSTIPATION; Start 04/10/18 at 05:00; Stop 04/30/18 at 10:59; Status DC Duloxetine HCl (Cymbalta) 30 mg QHS PO Last administered on 04/15/18at 19:39; Start 04/10/18 at 21:00; Stop 04/16/18 at 11:14; Status DC Duloxetine HCl (Cymbalta) 60 mg DAILY PO Last administered on 04/16/18at 07:54 ; Start 04/10/18 at 09:00; Stop 04/16/18 at 11:14; Status DC Memantine (Namenda) 10 mg BID PO Last administered on 04/30/18at 07:55; Start at 09:00; Stop 04/30/18 at 10:59; Status DC Olanzapine (ZyPREXA) 5 mg DAILY PO Last administered on 04/14/18at 08:10; Start 04/10/18 at 09:00; Stop 04/14/18 at 16:40; Status DC Olanzapine (ZyPREXA) 10 mg QHS PO Last administered on 04/13/18at 20:08; Start 04/10/18 at 21:00; Stop 04/14/18 at 16:40; Status DC Rivastigmine (Exelon) 1 patch DAILY TD Last administered on 04/16/18at 07:54; Start 04/10/18 at 09:00; Stop 04/16/18 at 11:15; Status DC Vitamin D (Vitamin D3) 50,000 unit WEEKLY PO Last administered on 04/24/18at 08 :20; Start 04/10/18 at 16:00; Stop 04/30/18 at 10:59; Status DC Quetiapine Fumarate (SEROquel) 25 mg BIDWBK/ PO Last administered on 04/25at 13:12; Start 04/15/18 at 08:00; Stop 04/25/18 at 23:23; Status DC Duloxetine HCl (Cymbalta) 60 mg HS PO Last administered on 04/29/18at 19:46; Start 04/16/18 at 21:00; Stop 04/30/18 at 10:59; Status DC Rivastigmine (Exelon) 1 patch DAILY TD Last administered on 04/30/18at 07:56; Start 04/17/18 at 09:00; Stop 04/30/18 at 10:59; Status DC Olanzapine (ZyPREXA ZYDIS) 2.5 mg PRN Q2HR PRN PO PSYCHOSIS Last administered on 04/25/18at 12:20; Start 04/25/18 at 12:15; Stop 04/30/18 at 10:59; Status DC Olanzapine (ZyPREXA ZYDIS) 2.5 mg BID@0900,1200 PO Last administered on at 07:55; Start 04/26/18 at 09:00; Stop 04/30/18 at 10:59; Status DC Active Scripts Active Reported EXELON 9.5mg/24hr (Rivastigmine) 1 Each Patch.td24 1 Patch TP DAILY Zyprexa Zydis (Olanzapine) 5 Mg Tab.rapdis 2.5 Mg PO BID @0900,1200 Zyprexa Zydis (Olanzapine) 5 Mg Tab.rapdis 2.5 Mg PO PRN Q2HR PRN Analgesic [place] (Methyl Salicylate/Menthol) 28 Gm Oint...g. 1 Margo TP PRN QID PRN Milk Of Magnesia (Magnesium Hydroxide) 2,400 Mg/10 Ml Oral.susp 2,400 Mg PO PRN QHS PRN Mag-Al Plus Xs Suspension (Mag Hydrox/Al Hydrox/Simeth) 30 Ml Oral.susp 15 Ml PO PRN AFTMEALHC PRN Vitamin D3 (Cholecalciferol (Vitamin D3)) 50,000 Unit Capsule 50,000 Unit PO WEEKLY Voltaren (Diclofenac Sodium) 100 Gm Gel..gram. 4 Gm TP PRN BID PRN Vitamin C (Ascorbic Acid) 500 Mg Tablet 500 Mg PO BID Tylenol (Acetaminophen) 325 Mg Tablet 650 Mg PO TID Namenda (Memantine Hcl) 10 Mg Tablet 10 Mg PO BID Levothyroxine Sodium 100 Mcg Tablet 100 Mcg PO DAILY06 Lactulose 10 Gm/15 Ml Solution 20 Gm PO PRN Q12HR PRN Cymbalta (Duloxetine Hcl) 60 Mg Capsule. 60 Mg PO QHS Calcium 500 + Vit D 200 Tablet (Calcium Carbonate/Vitamin D3) 1 Each Tablet 1 Tab PO BIDWMEALS Aspirin Ec (Aspirin) 325 Mg Tablet. 325 Mg PO DAILYWBKFT Tylenol (Acetaminophen) 325 Mg Tablet 650 Mg PO PRN Q4HRS PRN I have reviewed the current psychotropics carefully including drug interactions. Risk benefit ratio favors no change other than as noted in my dictated progress note. Diagnosis: Problems: (1) Alzheimer's dementia (2) Vascular dementia with delusions (3) Depression AUGIE SANCHEZ MD Apr 30, 2018 18:49
--- NOTE | 2018-04-30 21:57 | PN ---
DATE: 04/29/2018 PSYCHIATRIC PROGRESS NOTE This late entry 04/29/2018 covers elements not covered in my initial note. SUBJECTIVE: I met with the patient in the evening. The patient slept 7 hours previous night. The patient remains confused, withdrawn, but not aggressive. REVIEW OF SYSTEMS: Ambulation impaired, in Broda chair. No CV, , pulmonary, eye, ENT system symptoms on review. Reliability poor. MENTAL STATUS EXAM: Oriented to herself. Insight, judgment, recent and remote memory, attention, concentration, fund of knowledge poor, consistent with her diagnosis mentioned in my initial note. PLAN: No change from initial note. Discharge on 04/30/2018 back to snf. AUGIE SANCHEZ MD DR: JESUS/nts JOB#: [id number] / [id number]
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
== END 2018-04-30 10:58 | DRG 57 ==
LOC: ER 01:09 → GEROPSY 03:54
PROVIDERS: ADMIT Psychiatry & Neurology Psychiatry; ATTEND Psychiatry & Neurology Psychiatry
DX: G30.9 Alzheimer's disease, unspecified (principal); F02.81 Dementia in other diseases classified elsewhere, unspecified severity, with behavioral disturbance; F01.51 Vascular dementia, unspecified severity, with behavioral disturbance; F31.64 Bipolar disorder, current episode mixed, severe, with psychotic features; E44.0 Moderate protein-calorie malnutrition; D50.9 Iron deficiency anemia, unspecified; E03.9 Hypothyroidism, unspecified; E55.9 Vitamin D deficiency, unspecified; E86.0 Dehydration; F41.1 Generalized anxiety disorder; F63.9 Impulse disorder, unspecified; G89.29 Other chronic pain; M81.0 Age-related osteoporosis without current pathological fracture; R13.10 Dysphagia, unspecified; Z79.899 Other long term (current) drug therapy; Z91.81 History of falling
CPT/HCPCS: 36415; 70450; 71045; 72125; 74022; 76700; 80048; 80053; 80061; 80076; 80307; 81001; 82306; 82550; 82607; 83010; 83036; 83540; 83550; 83690; 83735; 83880; 84443; 84484; 85025; 85045; 85610; 85651; 85730; 86140; 86592; 86880; 93005; P9612; 99285-25